=== PATIENT | female | born 1945 | race African-American/Black ===

== ENCOUNTER 2023-03-12 05:55 | Inpatient (IN) | payer MEDICARE, SELFPAY ==
[2023-03-12] VITALS (10 sets, daily range): BP systolic 146–177; BP diastolic 60–72; PULSE 99–105; RESP 16–28; TEMP 36.7–37.3; O2SAT 94–99; BMI 26.4
--- NOTE | ~2023-03-12 | XR_ITS ---
EXAMINATION: XR chest 2V DATE: 03/14/2023 09:27 INDICATION: Leukocytosis TECHNIQUE: AP and lateral views of the chest are obtained. COMPARISON: None available FINDINGS: Cardiomegaly is noted. There are patchy bilateral opacities of the lungs. Small pleural eff usions are present. There is no pneumothorax. There is moderate thoracic spondylosis. Surgical clips are noted in the left axilla. IMPRESSION: 1. Cardiomegaly. 2. Patchy bilateral opacities, consistent with pneumonia and/or pulmonary edema. Reviewed, dictated and finalized at location [] IMPRESSION: 1. Cardiomegaly. 2. Patchy bilateral opacities, consistent with pneumonia and/or pulmonary edema .
--- NOTE | ~2023-03-12 | CT_ITS ---
Non-contrast CT scan of the Abdomen and Pelvis Clinical indication: Nausea and vomiting Technique: 2.5 mm axial scans were obtained through the abdomen and pelvis without intravenous or or al contrast. Dose reduction technique was used on this scan by utilizing automated exposure control a nd iterative reconstruction technique. The dose-length product (DLP) was 729.74 mGy-cm. Findings: Images through the lung bases reveal small bilateral pleural effusions, right greater than left, with extensive groundglass opacity in the visualized right lung base. Probable 4 mm stone at the left renal pelvis/right proximal left ureter. No left hydronephrosis. 6.1 cm right renal cyst is present. There is a right lower pole 1.3 cm probable hyperdense cyst. There ar e multiple stones at the distal right ureter, largest measuring 3 mm, with mild right hydronephrosis present. The liver, spleen, pancreas, and adrenals appear normal. Multiple small layering gallstones are prese nt. There are atherosclerotic calcifications of the aorta. There is no evidence of bowel obstruction. Images through the pelvis were performed. Small amount of abdominopelvic ascites noted. Urinary bladd er unremarkable. Patient is post hysterectomy. Impression: Multiple small distal right ureteral stones, largest measuring 3 mm, with mild right hydronephrosis. Probable 4 mm at the left renal pelvis/proximal left ureter. No left hydronephrosis. Small amount of abdominopelvic ascites. Cholelithiasis. Small bilateral pleural effusions, right greater than left, with right basilar pulmonary edema. Reviewed, dictated and finalized at [facility]. Impression: Multiple small distal right ureteral stones, largest measuring 3 mm, with mild right hydronephrosis. Probable 4 mm at the left renal pelvis/proximal left ureter. No left hydronephr osis. Small amount of abdominopelvic ascites. Cholelithiasis. Small bilateral pleural effusions, right greater than left, with right basilar pulmonary edema.
--- NOTE | ~2023-03-12 | US_ITS ---
EXAMINATION: US renal BI DATE: 03/14/2023 08:58 INDICATION: Acute renal insufficiency TECHNIQUE: Multiple ultrasound grayscale images of the kidneys were obtained. COMPARISON: None. FINDINGS: The right kidney measures 12.3 x 6.3 x 5.7 cm. The left kidney measures 10.4 x 5.0 x 5.9 cm. The kidn eys demonstrate normal echogenicity. There is a 6.5 cm Bosniak 3 complex cystic lesion at the upper p ole of the right kidney which demonstrates new approximately 1.7 x 1.9 cm echogenic region along one side of an otherwise thin internal septation. There is a second smaller 1.1 cm cyst at the mid right kidney. There are a few shadowing stones at both the left and right kidneys. There is no hydronephros is in either kidney. The bladder is decompressed around a Laureano catheter which limits evaluation. IMPRESSION: 1. 4.5 cm Bosniak 3 cystic right renal lesion which appears underestimated 50% possibility of renal cell carcinoma. Would recommend further evaluation with pre and postcontrast MRI or CT. 2. Bilateral nephrolithiasis without hydronephrosis. Reviewed, dictated and finalized at location A. IMPRESSION: 1. 4.5 cm Bosniak 3 cystic right renal lesion which appears underestimated 50% possibility of renal cell carcinoma. Would recommend further evaluation with p re and postcontrast MRI or CT. 2. Bilateral nephrolithiasis without hydronephrosis.
--- NOTE | ~2023-03-12 | XR_ITS ---
EXAMINATION: XR retrograde pyelo w/stent BI DATE: 03/13/2023 17:30 CDT INDICATION: B/L RETRO PYELO W/STENTS . TECHNIQUE: 6 fluoroscopic images of the abdomen and pelvis were obtained during bilateral retrograde pyelography with stent placement performed by the surgeon. I was not present in the operating room. F luoroscopy exposure time was 22 seconds. DAP [id number] mGym2. COMPARISON: CT abdomen and pelvis 03/12/2023 FINDINGS: Cannulation and contrast injection into the right collecting system revealing mild ureterectasis and calyceal clubbing. Right ureteral stent placed in good position. Wire access and contrast injection i nto the left collecting system. Left ureteral stent deployment, inferior coil in good position, proxi mal coil not imaged. IMPRESSION: Fluoroscopic documentation of bilateral retrograde pyelography with stent placement. Please refer to the operative note for complete procedural details . Reviewed, dictated and finalized at location K. IMPRESSION: Fluoroscopic documentation of bilateral retrograde pyelography with stent place ment. Please refer to the operative note for complete procedural details .
--- NOTE | ~2023-03-12 | XR_ITS ---
EXAM: XR abdomen/kub 1V DATE: 03/15/2023 13:36 HISTORY: surgical planning . COMPARISON: CT abdomen pelvis 03/12/2023. FINDINGS: An electronic device projects over the right upper quadrant. Bilateral ureteral stents. Le ft costophrenic angle blunting. Normal bowel gas pattern. No organomegaly. Calcifications project ove r the left renal pelvis and right pelvis, may correspond to the ureteral stones detected in the prior CT. Multilevel lumbar degenerative disc disease. Bilateral SI joint and hip osteoarthritis. IMPRESSION: Bilateral ureteral stents. Left renal pelvis and distal right ureteral stones appear to r emain in stable position. Reviewed, dictated and finalized at location K. IMPRESSION: Bilateral ureteral stents. Left renal pelvis and distal right urete ral stones appear to remain in stable position.
--- NOTE | 2023-03-12 06:40 | PC.NURSE ---
Patient gagging and dry heaving in room. This nurse informed ISHA SCHAFER to give 4MG Zofran IVP.
[2023-03-12 06:43] LABS: Basophils Percent Auto 0.3 % (0.2-1.2); Hematocrit 33.7 % (37.0-47.0); Hemoglobin 11.3 g/dL (12.0-15.0); Immature Granulocyte Percent A 0.6 % (0-0.5); Lymphocytes Percent Auto 3.9 % (18.3-44.2); Mean Corpuscular HGB Conc 33.5 g/dl (32-36); Mean Corpuscular Hemoglobin 31.7 pg (26-34); Mean Corpuscular Volume 94.4 fl (80-100); Mean Platelet Volume 9.6 fl (7.4-10.4); Monocytes Percent Auto 4.2 % (2.6-8.5); Platelet Count Result 248 k/mm3 (150-375); Red Blood Count 3.57 M/mm3 (4.2-5.4); Red Cell Distribution Width 15.6 % (11.5-14.5); White Blood Count 17.4 K/mm3 (4.5-10.0)
[2023-03-12 06:44] LABS: Basophils Absolute Auto 0.1 K/mm3 (0.0-0.1); Immature Granulocyte Absolute 0.11 K/mm3 (0.00-0.031); Lymphocytes Absolute Auto 0.68 K/mm3 (0.9-3.2); Monocytes Absolute Auto 0.7 K/mm3 (0.1-0.6); Neutrophils Absolute Auto 15.9 K/mm3 (1.3-6.7)
[2023-03-12] MEDS: ONDANSETRON INJ 4 MG/2 ML VIAL IV PUSH ×2 (06:44→07:23)
[2023-03-12 06:53] LABS: Alanine Aminotransferase 24 U/L (6-35); Albumin Level 4.7 g/dL (3.5-5.1); Alkaline Phosphatase 75 U/L (38-126); Anion Gap 15 mmol/L (8-16); Aspartate Amino Transferase 36 U/L (14-36); Bilirubin,Total 0.7 mg/dL (0.2-1.3); Blood Urea Nitrogen 55 mg/dL (7-17); Calcium 11.6 mg/dL (8.4-10.2); Carbon Dioxide 23 mmol/L (22-30); Chloride 105 mmol/L (98-107); Estimated CRCL calculation 10 ml/min; Estimated Glomerular Filt Rate 14; Glucose 174 mg/dL (65-110); Lipase 148 U/L (23-300); Potassium 4.2 mmol/L (3.4-5.0); Sodium 143 mmol/L (137-145)
[2023-03-12] MEDS: SODIUM CHLORIDE 0.9% IV 1,000 ML 999 ML IV CONT (07:23)
--- NOTE | 2023-03-12 07:27 | PC.NURSE ---
Assumed care of pt from Cat. Pt unable to urinate at this time. Fluids started
--- NOTE | 2023-03-12 08:02 | ED.GENADULT ---
HPI - General Adult General Chief complaint: Nausea/Vomiting/Diarrhea Stated complaint: N/V Time Seen by Provider: 03/12/23 06:59 History of Present Illness HPI narrative: Patient is a 78-year-old female who presents ER with nausea and vomiting and diarrhea. Began last night. Vomiting has slowed down. Patient reports multiple episodes of loose stools. No blood in stool or emesis. Denies any sick contacts. No fevers or chills or sweats. No loss of consciousness. Has found no aggravating or alleviating factors. No abdominal pain just cramping before she has diarrhea. Related Data Home Medications Medication Instructions Recorded Confirmed allopurinol 100 mg tablet 100 mg PO DAILY 09/12/21 03/12/23 amlodipine 10 mg tablet 10 mg PO DAILY 09/12/21 03/12/23 calcitriol 0.25 mcg capsule 0.25 mcg PO DAILY 09/12/21 03/12/23 carvedilol 25 mg tablet 25 mg PO Q12H 09/12/21 03/12/23 furosemide 40 mg tablet 40 mg PO QAM 09/12/21 03/12/23 losartan 100 mg tablet 100 mg PO DAILY 09/12/21 03/12/23 rosuvastatin 40 mg tablet 40 mg PO DAILY 09/12/21 03/12/23 Accu-Chek Mariza Plus test strp 03/12/23 03/12/23 apixaban 2.5 mg tablet (Eliquis) 2.5 mg PO BID 03/12/23 03/12/23 clobetasol 0.05 % scalp solution 0.5 applic topical DAILY 03/12/23 03/12/23 empagliflozin 25 mg tablet 25 mg PO DAILY 03/12/23 03/12/23 (Jardiance) fluocinolone acetonide oil 0.01 % topical HS skin irritation 03/12/23 03/12/23 hydrocortisone 2.5 % topical cream 2.5 applic topical BID 03/12/23 03/12/23 hydroxyzine HCl 25 mg PO HS 03/12/23 03/12/23 insulin lispro 100 unit/mL 200 unit continuous subcutaneous 03/12/23 03/12/23 subcutaneous solution (Humalog infusion Q72H U-100 Insulin) loratadine 10 mg PO DAILY PRN allergies 03/12/23 03/12/23 triamcinolone acetonide 0.1 % 0.1 applic topical BID 03/12/23 03/12/23 topical ointment Allergies Allergy/AdvReac Type Severity Reaction Status Date / Time No Known Allergies Allergy Verified 03/12/23 06:37 Review of Systems Review of Systems: All systems reviewed & are unremarkable except as noted in HPI and below Constitutional: Constitutional: Denies chills, Denies fatigue and Denies fever(s) ENT: Denies nasal congestion and Denies sore throat Cardiovascular: Cardiovascular: Denies chest pain, Denies rapid heart rate and Denies radiating jaw, neck or arm pain Respiratory: Respiratory: Denies cough and Denies dyspnea Gastrointestinal: Gastrointestinal: Denies abdominal pain, Reports diarrhea, Reports nausea and Reports vomiting Genitourinary: Genitourinary: Denies nocturia and Denies dysuria [facility] Past Medical History Medical History (Updated 03/12/23 @ 19:51 by Boubacar Vega MD) Anemia in chronic kidney disease Atrial fibrillation and flutter Cancer of left breast (2009) Status post partial mastectomy and chemo radiation. 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 Code status: Full code. Smoking status: Never smoker Alcohol intake: never Substance use: never Lack of Transportation: No Lack of Food: Never True Current Housing: I Have Housing Concerned About Future Housing: No Difficulty Paying Gas/Electric Bills: No Difficulty Paying for Meds: No Currently Unemployed: No Education: High School Diploma/GED Difficulty w/ Childcare or Family Care: No Spiritual care concerns: No Exam Narrative: GENERAL: Well-appearing, well-nourished, and in no acute distress. HEAD: Normocephalic, atraumati
[2023-03-12 08:16] LABS: Appearance Urine Cloudy (Clear); Bacteria Urine Rare /hpf; Bilirubin Urine Negative (Negative); Blood Urine 3+ (Negative); Color Urine Yellow (Yellow); Glucose Urine UA 3+ mg/dL (Negative); Ketones Urine 1+ mg/dL (Negative); Leukocyte Esterase Ur Trace LEU/UL (Negative); Nitrate Urine Negative (Negative); Protein Urine 3+ mg/dL (Negative); RBC Urine 21-50 /hpf (0-2); Specific Grav Ur 1.017 (1.001-1.035); Squamous Epithelial Cell Urine Few /hpf (Few); Urobilinogen Urine 0.2 mg/dL (<2.0)
[2023-03-12 08:21] LABS: Add Urine Microscopic? YES
[2023-03-12] MEDS: SODIUM CHLORIDE 0.9% IV 1,000 ML 150 ML IV CONT (11:27)
[2023-03-12] MEDS: PROMETHAZINE HCL 25 MG/ML AMPUL 12.5 MG IV PUSH (11:28)
--- NOTE | 2023-03-12 12:54 | ADMGEN ---
This patient, Tegan Granados, was admitted to [address] [facility] Surg Room 331-02. Patient/family oriented to hospital policies and general routines including ID bracelet, bed and alarms, visiting hours, pain management, procedures, bathroom and other care routines, personal items, smoking policy, room service/diet, and visiting hours. Information on how to activate the Rapid Response Team has been discussed. Patient/Family are encouraged to report perceived risks to care and to ask questions if they do not understand what they are told or what they should do.
--- NOTE | 2023-03-12 13:40 | PM.IMHP ---
H&P: HPI History of Present Illness Date/Time: 03/12/23 13:40 Chief Complaint: Nausea, vomiting, and diarrhea. Narrative: This is a 78-year-old female with chronic kidney disease, paroxysmal atrial fibrillation and flutter, insulin-dependent diabetes, anemia of chronic disease, hypertension, hyperlipidemia, and history of breast cancer who presented to the emergency department via private vehicle from home for evaluation of nausea, vomiting, and diarrhea. The patient provides the following history. Her daughter provides additional information, with the patient's permission. The patient awoke from sleep not feeling well. Her appetite has been poor and she has had pretty continuous nausea with several episodes of emesis (now dry heaves) and loose stools. She denies overt abdominal pain but she does note diffuse abdominal cramping just prior to having diarrhea. In the ED: Vital signs were stable on arrival. Pertinent labs include a WBC count of 17.4, hemoglobin 11.3, normal electrolytes, BUN 55, creatinine 3.50, glucose 174, calcium 11.6, normal LFTs, lipase 148, proBNP 7640. Urine was cloudy with 3+ protein, 3+ glucose, 1+ ketones, 3+ blood, trace leukocyte esterase, 21 to 50 RBC, 6 to 10 WBC, few squamous cells, and rare bacteria. She was given a L of normal saline and promethazine without a whole lot of improvement and she is being admitted in this setting for further treatment. At the time my evaluation she is not feeling much better and has little appetite. She had a couple of bites of her dinner and that is it. She has removed her insulin pump and her glucose has been in the low to mid 100s. She lives at home with her daughter and no one in the household has had similar symptoms. She denies recent travel and antibiotic use. She denies fever, chills, sweats, sinus congestion, sore throat, cough, epigastric pain, bloating, hematemesis, melena, hematochezia, chest pain, shortness a breath, dysuria, and hematuria. Review of Systems Review of Systems: Twelve systems were reviewed and are negative except for as per HPI. [facility] Past Medical History Medical History Anemia in chronic kidney disease Atrial fibrillation and flutter Cancer of left breast (2009) Status post partial mastectomy and chemo radiation. 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 Code status: Full code. Smoking status: Never smoker Alcohol intake: never Substance use: never Lack of Transportation: No Lack of Food: Never True Current Housing: I Have Housing Concerned About Future Housing: No Difficulty Paying Gas/Electric Bills: No Difficulty Paying for Meds: No Currently Unemployed: No Education: High School Diploma/GED Difficulty w/ Childcare or Family Care: No Spiritual care concerns: No Meds Home Medications and Allergies Home Medications Medication Instructions Recorded Confirmed Type allopurinol 100 mg tablet 100 mg PO DAILY 09/12/21 03/12/23 History amlodipine 10 mg tablet 10 mg PO DAILY 09/12/21 03/12/23 History calcitriol 0.25 mcg capsule 0.25 mcg PO DAILY 09/12/21 03/12/23 History carvedilol 25 mg tablet 25 mg PO Q12H 09/12/21 03/12/23 History furosemide 40 mg tablet 40 mg PO QAM 09/12/21 03/12/23 History losartan 100 mg tablet 100 mg PO DAILY 09/12/21 03/12/23
[2023-03-12 17:00] LABS: Glucose Point of Care 126 mg/dl (65-105)
--- NOTE | 2023-03-12 19:26 | PC.NURSE ---
Pt arrived to unit with daughter. Pt able to walk to bed. Pt has not reported any pain. Pt sleeping during most of this shift. Pt monitored for any changes in status. Pt has insulin pump, protocol explained. Provider is not using pump at this time.
[2023-03-12 19:47] LABS: Anion Gap 9 mmol/L (8-16); Blood Urea Nitrogen 60 mg/dL (7-17); Calcium 10.2 mg/dL (8.4-10.2); Carbon Dioxide 21 mmol/L (22-30); Chloride 112 mmol/L (98-107); Estimated CRCL calculation 10 ml/min; Estimated Glomerular Filt Rate 13; Glucose 157 mg/dL (65-110); Potassium 4.3 mmol/L (3.4-5.0); Sodium 142 mmol/L (137-145)
[2023-03-12 19:56] LABS: NT Pro B Type Natriuretic Pept 7640 pg/mL (19.9-100)
[2023-03-12 20:15] LABS: Glucose Point of Care 165 mg/dl (65-105)
[2023-03-12 21:00] LABS: Hemoglobin A1C 5.6 % (<5.7)
[2023-03-12] MEDS: HEPARIN SODIUM 5,000 UNITS/ML VIAL 5000 UNITS SUB-Q (21:10)
[2023-03-12 23:47] LABS: Complement C3 114 mg/dL (88-165)
[2023-03-12 23:49] LABS: CRP 2.6 mg/dL (<1.0)
[2023-03-13] VITALS (25 sets, daily range): BP systolic 129–160; BP diastolic 57–71; PULSE 78–99; RESP 14–30; TEMP 36.1–38.5; O2SAT 85–97
[2023-03-13] MEDS: LACTATED RINGERS 1,000 ML 80 ML IV CONT ×2 (01:02→15:16)
[2023-03-13] MEDS: carvediloL 25 MG TABLET PO ×3 (01:03→20:49)
[2023-03-13 01:12] LABS: Erythrocyte Sedimentation Rate 97 mm/hr (0-20)
[2023-03-13 04:18] LABS: Creatinine Urine 78.5 mg/dL
[2023-03-13 04:23] LABS: Eosinophil Urine None Seen % (None Seen)
[2023-03-13 04:27] LABS: Potassium Urine Random 44.1 meq/L; Sodium Urine Random 31 meq/L
[2023-03-13 04:32] LABS: Urine Eos QC 2nd Tech Confirmed
[2023-03-13 04:59] LABS: Total Protein Urine Random 554 mg/dL; Ur Ttl Prot Creatinine Ratio 7.06 mg/mg (0-0.20)
[2023-03-13 07:24] LABS: Hematocrit 29.6 % (37.0-47.0); Hemoglobin 9.8 g/dL (12.0-15.0); Mean Corpuscular HGB Conc 33.1 g/dl (32-36); Mean Corpuscular Hemoglobin 31.6 pg (26-34); Mean Corpuscular Volume 95.5 fl (80-100); Mean Platelet Volume 9.9 fl (7.4-10.4); Platelet Count Result 205 k/mm3 (150-375); Red Cell Distribution Width 15.8 % (11.5-14.5); White Blood Count 20.7 K/mm3 (4.5-10.0)
[2023-03-13 07:34] LABS: Anion Gap 11 mmol/L (8-16); Blood Urea Nitrogen 67 mg/dL (7-17); Calcium 9.9 mg/dL (8.4-10.2); Carbon Dioxide 24 mmol/L (22-30); Chloride 108 mmol/L (98-107); Estimated CRCL calculation 8 ml/min; Estimated Glomerular Filt Rate 11; Glucose 181 mg/dL (65-110); Magnesium 2.6 mg/dL (1.6-2.3); Potassium 4.3 mmol/L (3.4-5.0); Sodium 143 mmol/L (137-145)
[2023-03-13 08:03] LABS: Glucose Point of Care 190 mg/dl (65-105)
[2023-03-13] MEDS: APIXABAN 2.5 MG TABLET PO (09:10)
[2023-03-13] MEDS: amLODIPine BESYLATE 5 MG TABLET 10 MG PO (09:10)
[2023-03-13] MEDS: ROSUVASTATIN 10 MG TABLET 40 MG PO (09:11)
--- NOTE | 2023-03-13 10:33 | PC.NURSE ---
Daughter, [place], was called and updated on patient.
[2023-03-13 11:55] LABS: Glucose Point of Care 218 mg/dl (65-105)
--- NOTE | 2023-03-13 12:42 | PC.NURSE ---
Called Dr. Anthony to initiate sliding scale orders as patient is tolerating meals and her BG is beginning to rise.
--- NOTE | 2023-03-13 14:55 | PM.IMPN ---
Progress Note: A&P Assessment and Plan (1) Acute on chronic kidney failure: Code(s): N17.9 - Acute kidney failure, unspecified; N18.9 - Chronic kidney disease, unspecified Status: Acute Assessment and Plan: Baseline creatinine this year is 2.3-2.9 range. Creatinine 3.[address] scan does show right obstructing renal stone with hydronephrosis. Renal function worsening. Urine eosinophils are negative. Significant proteinuria noted but could be related to her acute illness. Complimented normal. She is on IV fluids. Laureano catheter secured. potassium is normal. She is not acidotic. Nephrology has been consulted. Continue monitor closely. Check renal ultrasound. (2) Ureteral stone with hydronephrosis: Code(s): N13.2 - Hydronephrosis with renal and ureteral calculous obstruction Status: Acute Assessment and Plan: CT scan showing a 4 mm left renal pelvis/proximal left ureter stone but no hydronephrosis. She also has multiple small distal right ureteral stones measuring up to 3 mm with mild right hydronephrosis. Urology consulted. Continue IV fluids. Strain urine. Add Flomax. Hold Eliquis. (3) Dehydration: Code(s): E86.0 - Dehydration Status: Acute Assessment and Plan: As above. Acute kidney injury could be related to dehydration although suspect ATN as well from obstructing process. As above. (4) Gastroenteritis: Code(s): K52.9 - Noninfective gastroenteritis and colitis, unspecified Status: Acute Assessment and Plan: Patient with gastroenteritis symptoms with nausea, vomiting and diarrhea. Symptoms seem to be resolving. No bowel movements documented. She has been started on diabetic diet. She is tolerating diet well and eating up to 100%. CT scan does not show any bowel obstructive process. Follow (5) Hypertension: Code(s): I10 - Essential (primary) hypertension Status: Acute Assessment and Plan: Patient's blood pressure was reviewed on 03/13 Blood pressure was elevated but better today. Will continue to monitor (6) Anemia in chronic kidney disease: Code(s): N18.9 - Chronic kidney disease, unspecified; D63.1 - Anemia in chronic kidney disease Status: Acute Assessment and Plan: Baseline hemoglobin runs 9-10 range. Hemoglobin was 11.3 on admission but probably hemoconcentrated. With IV fluids, hemoglobin today is 9.8. No evidence of acute blood loss. Will continue to monitor. Presumably anemia is related to CKD but will check iron studies and B12. (7) Insulin dependent diabetes mellitus: Status: Acute Assessment and Plan: A1c 5.6. The patient's blood glucose was reviewed on 03/13 Glucose remains reasonably well controlled. Pump is off. Continue AccuCheks covering with sliding scale. Hypoglycemia protocol available as needed. Continue to monitor. (8) Leukocytosis: Code(s): D72.829 - Elevated white blood cell count, unspecified Status: Acute Assessment and Plan: [place] [address] on admission. White count higher today. No fevers. Not on antibiotics. Will check blood cultures and chest x-ray. C diff seems less likely since the diarrhea has resolved and there is no evidence of colitis on the CT. Hold abx at this time (9) Microscopic hematuria: Code(s): R31.29 - Other microscopic hematuria Status: Acute Assessment and Plan: Related to kidney stones most likely (10) Hypercalcemia: Code(s): E83.52 - Hypercalcemia Status: Acute Assessment and Plan: Mild hypercalcemia noted on admission probably related to dehydration. Calcium level normal now. Would follow. Subjective Date/time seen: 03/13/23 14:55 Interval history: 78yo female with CKD, CHF, HTN, DM and AFib here for nausea, vomiting, and diarrhea. Feels better today. No abd pain. Has 'slight' back pain. No CP or SOB. No dy
[2023-03-13 16:49] LABS: Glucose Point of Care 194 mg/dl (65-105)
--- NOTE | 2023-03-13 16:57 | WPDANESEPP ---
Anes - Eval Pre Procedure Procedure: Operation Date: 03/13/23 17:00 Proposed Procedures p Cystoscopy, Bilateral Retrograde Pyelogram , Bilateral Stent Placement - Terry Lau MD Date/Time: 03/13/23 16:57 Pre Op Diagnosis: Acute on Chronic Kidney Failure/Intractable Vomiti Patient Data Age: 78 Gender: F Height: 1.57 m Weight: 71.7 kg Last Vital Signs Temp 37.6 C 03/13/23 14:00 Pulse 90 03/13/23 16:00 Resp 14 03/13/23 14:00 BP 132/60 03/13/23 14:00 Pulse Ox 90 03/13/23 14:00 O2 Del Method Room Air 03/13/23 09:42 Allergies Allergy/AdvReac Type Severity Reaction Status Date / Time No Known Allergies Allergy Verified 03/12/23 06:37 Home Medications Medication Instructions Recorded Confirmed Type allopurinol 100 mg tablet 100 mg PO DAILY 09/12/21 03/12/23 History amlodipine 10 mg tablet 10 mg PO DAILY 09/12/21 03/12/23 History calcitriol 0.25 mcg capsule 0.25 mcg PO DAILY 09/12/21 03/12/23 History carvedilol 25 mg tablet 25 mg PO Q12H 09/12/21 03/12/23 History furosemide 40 mg tablet 40 mg PO QAM 09/12/21 03/12/23 History losartan 100 mg tablet 100 mg PO DAILY 09/12/21 03/12/23 History rosuvastatin 40 mg tablet 40 mg PO DAILY 09/12/21 03/12/23 History Accu-Chek Mariza Plus test strp 03/12/23 03/12/23 History apixaban 2.5 mg tablet (Eliquis) 2.5 mg PO BID 03/12/23 03/12/23 History clobetasol 0.05 % scalp solution 0.5 applic topical DAILY 03/12/23 03/12/23 History empagliflozin 25 mg tablet 25 mg PO DAILY 03/12/23 03/12/23 History (Jardiance) fluocinolone acetonide oil 0.01 % topical HS skin irritation 03/12/23 03/12/23 History hydrocortisone 2.5 % topical cream 2.5 applic topical BID 03/12/23 03/12/23 History hydroxyzine HCl 25 mg PO HS 03/12/23 03/12/23 History insulin lispro 100 unit/mL 200 unit continuous subcutaneous 03/12/23 03/12/23 History subcutaneous solution (Humalog infusion Q72H U-100 Insulin) loratadine 10 mg PO DAILY PRN allergies 03/12/23 03/12/23 History triamcinolone acetonide 0.1 % 0.1 applic topical BID 03/12/23 03/12/23 History topical ointment Laboratory Tests 03/12/23 03/12/23 03/12/23 06:34 16:52 19:20 WBC RBC Hgb Hct MCV MCH MCHC RDW Plt Count MPV ESR 97 H mm/hr (0-20) Sodium 142 mmol/L (137-145) Potassium 4.3 mmol/L (3.4-5.0) Chloride 112 H mmol/L (98-107) Carbon Dioxide 21 L mmol/L (22-30) Anion Gap 9 mmol/L (8-16) BUN 60 H mg/dL (7-17) Creatinine 4.00 H mg/dL (0.7-1.0) Estim Creat Clear Calc 10 ml/min Estimated GFR 13 L (59 - ) Glucose 157 H mg/dL (65-110) POC Capillary Glucose 126 H mg/dl (65-105) Hemoglobin A1c 5.6 % (<5.7) Calcium 10.2 mg/dL (8.4-10.2) Phosphorus Magnesium C-Reactive Protein 2.6 H mg/dL (<1.0) NT-Pro-B Natriuret Pep 7640 H pg/mL (19.9-100) Urine Eosinophils Ur Random Creatinine U Random Total Protein Ur Random Sodium Ur Random Potassium Ur Random Chloride U Random Chloride/Creat Urine Creatinine Protein/Creat Ratio 2 REJI Screen Anti-DNA Antibody Complement C3 114 mg/dL (88-165) Complement C4 39.5 mg/dL (14.0-44.0) Tot Complement (CH50) 03/12/23 03/13/23 03/13/23 20:02 03:52 07:16 WBC 20.7 H K/mm3 (4.5-10.0) RBC 3.10 L M/mm3 (4.2-5.4) Hgb 9.8 L g/dL (12.0-15.0) Hct 29.6 L % (37.0-47.0) MCV 95.5 fl (80-100) MCH 31.6 pg (26-34) MCHC 33.1 g/dl (32-36) RDW 15.8 H % (11.5-14.5) Plt Count 205 k/mm3 (150
--- NOTE | 2023-03-13 17:03 | WPDURCON ---
Assessment and Plan Assessment and plan (1) Ureteral stone with hydronephrosis: Code(s): N13.2 - Hydronephrosis with renal and ureteral calculous obstruction Status: Acute Assessment and Plan: Plan to go to the OR tonight with Dr. Lau. Obtain Consent: Cystoscopy, bilateral ureteroscopy with stent placement, bilateral retrograde pyelogram. Keep NPO. (2) Microscopic hematuria: Code(s): R31.29 - Other microscopic hematuria Status: Acute Assessment and Plan: Urine culture pending. Start Ceftriaxone tailor to antibiotic sensitivity. (3) Leukocytosis: Code(s): D72.829 - Elevated white blood cell count, unspecified Status: Acute (4) Hematuria: Code(s): R31.9 - Hematuria, unspecified Status: Acute (5) Acute on chronic kidney failure: Code(s): N17.9 - Acute kidney failure, unspecified; N18.9 - Chronic kidney disease, unspecified Status: Acute Assessment and Plan: Elevated to 4.70 from her baseline of 2.10, I suspect it will improve after stent placement, will continue to monitor. Urology Consult Note HPI Date Seen: 03/13/23 Time Seen: 17:03 Requesting Physician: Emily Samayoa MD Primary Care Provider: Angelica EspinozaMD Consult Narrative Reason for consult: Bilateral Ureteral Stones Narrative: Tegan Granados is a 78 year old female who presented to the ER yesterday with nausea, vomiting, diarrhea and flank pain that was bilateral. She states the symptoms started over the weekend, but worsened yesterday brining her to the ER. She has a low grade fever of 99.6, WBC of 20.7, creatinine of 4.70 which is elevated from her baseline of 2.10. Her pain is not well controlled and she is lethargic as compared to baseline according to her daughter who is at the bedside. UA is suggestive of a UTI and urine culture is pending. CT scan shows multiple small distal right ureteral stones measuring up to 3mm with mild right hydronephrosis and a 4mm left renal pelvic stone in the proximal ureter with out hydronephrosis. Review of Systems Constitutional: Constitutional: Reports lethargy, Reports malaise and Reports weakness Cardiovascular: Cardiovascular: Denies chest pain Respiratory: Respiratory: Reports no additional respiratory complaints Gastrointestinal: Gastrointestinal: Reports abdominal pain, Reports nausea and Reports vomiting Genitourinary: Genitourinary: Denies nocturia, Denies dysuria, Denies pelvic pain, Reports flank pain, Denies urinary incontinence and Denies urinary urgency PMF Past Medical History Medical History Anemia in chronic kidney disease Atrial fibrillation and flutter Cancer of left breast (2009) Status post partial mastectomy and chemo radiation. 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 Code status: Full code. Smoking status: Never smoker Alcohol intake: never Substance use: never Lack of Transportation: No Lack of Food: Never True Current Housing: I Have Housing Concerned About Future Housing: No Difficulty Paying Gas/Electric Bills: No Difficulty Paying for Meds: No Currently Unemployed: No Education: High School Diploma/GED Difficulty w/ Childcare or Family Care: No Spiritual care concerns: No Meds Home Medications and Allergies Home Medications Medication Instructions Recorded Confirmed Type allopurinol 100 mg tablet 100 mg PO FLORESITA
--- NOTE | 2023-03-13 17:28 | WPDHPUPDATE1 ---
History and Physical Update Update Date/Time: 03/13/23 17:28 History and Physical has been reviewed, including an updated exam of the patient. There are NO changes in the patient's condition. Risks, benefits, and alternatives have been discussed and questions answered. Patient agrees to proceed with procedure. Proceed with cysto bilateral retrograde pyelograms, bilateral ureteral stents
--- NOTE | 2023-03-13 17:29 | P.PNAN_ITS ---
Anes - Eval Final PreProcedure Day of Procedure 03/13/23 17:29 Patient weight: overweight Heart: regular rate and rhythm Lungs: clear to auscultation Airway: Mallampati scale class II and class IV Neurological: alert and oriented Last oral intake: >/= 8 hours ASA classification: IV Emergent: no Anesthetic plan: proceed Anesthesia type and monitoring: general ETT and standard monitoring Results Review: All pre-operative results and documents have been reviewed as part of the pre- operative evaluation. Informed Consent: The patient's anesthetic plan and its attendant risks and benefits were disc ussed with the patient/family/POA. Questions were solicited and answers provided to the satisfaction of the patient/family/POA.
[2023-03-13] MEDS: LACTATED RINGERS 1,000 ML 30 ML IV CONT (17:30)
[2023-03-13] MEDS: LIDOCAINE HCL 2% GEL UROJET 10 ML PKG MUCOUS MEM (17:53)
--- NOTE | 2023-03-13 18:00 | P.OP_ITS ---
Procedure Note - Detailed Date of Procedure 03/13/23 Pre-op Diagnosis Acute on Chronic Kidney Failure/bilateral ureterolithiasis with UTI Post-op Diagnosis Same Procedure Performed Cystoscopy, bilateral retrograde pyelograms, bilateral ureteral stent placement 4.8 Portuguese contour, complex Laureano placement Surgeon Terry Lau MD Anesthesia MAC Description of Procedure Patient is taken to the operative suite correctly identified. Once anesthesia was obtained she was placed in dorsal lithotomy position and prepped draped usual sterile fashion. Twenty-two Portuguese scope inserted in the bladder. There were no tumors noted. The right ureteral orifice was cannulated with a [place] and a pyelogram was performed. Contrast made its way up into the kidney. A guidewire was then inserted. 4.8 Portuguese contour stent was then placed with the proximal end coiled in the renal pelvis and distal in the bladder. Was noted that there was some purulence coming from the right UO with placement. A similar procedure was then done on the left side. 4.8 Portuguese contour stent was also placed in the left renal pelvis and the distal end coiling in the bladder. Bladder was drained 2% viscous lidocaine was inserted urethra. Sixteen Portuguese Laureano was placed with 10 cc in the balloon. Patient is taken recovery stable condition. Plan is to get over the acute episodes. She will require a repeat CT scan in a few days. Most likely will need bilateral ureteroscopy to address the stones at a later point time once her infection clears. This completes dictation. Please send a copy this to my office Drains Yes Packing No Pathology None sent Complications No immediate complications Condition Stable Disposition PACU
[2023-03-13] MEDS: hydrOXYzine HCL 25 MG TABLET PO (20:49)
[2023-03-13] MEDS: TAMSULOSIN HCL 0.4 MG CAPSULE PO (20:49)
[2023-03-13 22:19] LABS: Glucose Point of Care 163 mg/dl (65-105)
[2023-03-14] VITALS (11 sets, daily range): BP systolic 122–136; BP diastolic 52–66; PULSE 68–96; RESP 18–24; TEMP 36.8–37.7; O2SAT 91–98
[2023-03-14] MEDS: ACETAMINOPHEN 325 MG TABLET 650 MG PO ×2 (05:16→12:06)
[2023-03-14 06:29] LABS: Basophils Percent Auto 0.2 % (0.2-1.2); Eosinophils Absolute Auto 0.1 K/mm3 (0-0.3); Eosinophils Percent Auto 0.4 % (0-4.4); Hematocrit 27.6 % (37.0-47.0); Hemoglobin 8.8 g/dL (12.0-15.0); Immature Granulocyte Absolute 0.11 K/mm3 (0.00-0.031); Immature Granulocyte Percent A 0.7 % (0-0.5); Lymphocytes Absolute Auto 0.68 K/mm3 (0.9-3.2); Lymphocytes Percent Auto 4.6 % (18.3-44.2); Mean Corpuscular HGB Conc 31.9 g/dl (32-36); Mean Corpuscular Hemoglobin 30.4 pg (26-34); Mean Corpuscular Volume 95.5 fl (80-100); Mean Platelet Volume 10.6 fl (7.4-10.4); Monocytes Absolute Auto 1.4 K/mm3 (0.1-0.6); Monocytes Percent Auto 9.3 % (2.6-8.5); Neutrophils Absolute Auto 12.6 K/mm3 (1.3-6.7); Neutrophils Percent Auto 84.8 % (45.5-73.1); Platelet Count Result 189 k/mm3 (150-375); Red Blood Count 2.89 M/mm3 (4.2-5.4); Red Cell Distribution Width 15.3 % (11.5-14.5); White Blood Count 14.9 K/mm3 (4.5-10.0)
[2023-03-14 06:39] LABS: Alanine Aminotransferase 19 U/L (6-35); Albumin Level 3.2 g/dL (3.5-5.1); Alkaline Phosphatase 50 U/L (38-126); Anion Gap 5 mmol/L (8-16); Aspartate Amino Transferase 30 U/L (14-36); Bilirubin,Total 0.5 mg/dL (0.2-1.3); Blood Urea Nitrogen 68 mg/dL (7-17); Calcium 9.1 mg/dL (8.4-10.2); Carbon Dioxide 26 mmol/L (22-30); Chloride 111 mmol/L (98-107); Creatine Kinase 172 U/L (30-135); Estimated CRCL calculation 8 ml/min; Estimated Glomerular Filt Rate 11; Glucose 139 mg/dL (65-110); Magnesium 2.5 mg/dL (1.6-2.3); Phosphorus 4.1 mg/dL (2.5-4.5); Potassium 3.9 mmol/L (3.4-5.0); Sodium 142 mmol/L (137-145)
[2023-03-14 06:49] LABS: Iron 30 ug/dL (37-170)
[2023-03-14 06:55] LABS: Platelet Estimate Adequate (Adequate)
[2023-03-14 06:56] LABS: Burr Cells 1+ (NORMAL); Helmet Cells 1+ (NORMAL); Schistocytes 1+ (NORMAL)
[2023-03-14 06:58] LABS: Percent Iron Saturation 14 % (20-50)
[2023-03-14 07:43] LABS: Folic Acid 18.2 ng/mL (2.76->20)
[2023-03-14 07:49] LABS: Glucose Point of Care 122 mg/dl (65-105)
[2023-03-14] MEDS: carvediloL 25 MG TABLET PO ×2 (08:08→22:10)
[2023-03-14] MEDS: ROSUVASTATIN 10 MG TABLET 40 MG PO (08:08)
[2023-03-14] MEDS: TAMSULOSIN HCL 0.4 MG CAPSULE PO (08:08)
[2023-03-14] MEDS: amLODIPine BESYLATE 5 MG TABLET 10 MG PO (08:08)
[2023-03-14] MEDS: LACTATED RINGERS 1,000 ML 80 ML IV CONT ×2 (08:09→22:13)
--- NOTE | 2023-03-14 09:59 | WPDANESPN ---
Anes - Prog Note Post-Op Date/Time: 03/14/23 09:59 Cardiovascular status: normal Respiratory status: normal Airway patency: baseline Mental status: baseline Post-Op hydration status: normal Vital Signs: Last Vital Signs Temp 98.9 F 03/14/23 08:00 Pulse 89 03/14/23 08:08 Resp 20 03/14/23 08:00 BP 131/57 L 03/14/23 08:00 Pulse Ox 95 03/14/23 08:00 O2 Del Method Nasal Cannula 03/13/23 20:14 O2 Flow Rate 3 03/13/23 20:14 Pain Score (VAS): 0/10 I/O: Intake & Output 03/13/23 03/14/23 03/14/23 23:59 07:59 15:59 Intake Total 1200 640 Output Total 140 750 Balance 1060 -750 640 Laboratory Tests 03/14/23 05:50 03/14/23 05:50 03/13/23 03/13/23 03/13/23 11:33 16:30 20:58 WBC RBC Hgb Hct MCV MCH MCHC RDW Plt Count MPV Immature Gran % (Auto) Neut % (Auto) Lymph % (Auto) Leake % (Auto) Eos % (Auto) Baso % (Auto) Lymph # (Auto) Leake # (Auto) Eos # (Auto) Baso # (Auto) Abs Immat Gran (auto) Absolute Neuts (auto) Absolute Nucleated RBC Nucleated RBC % Platelet Estimate Helmet Cells Julieth Cells Schistocytes Sodium Potassium Chloride Carbon Dioxide Anion Gap BUN Creatinine Estim Creat Clear Calc Estimated GFR Glucose POC Capillary Glucose 218 H 194 H 163 H Calcium Phosphorus Magnesium Iron TIBC % Saturation Ferritin Total Bilirubin AST ALT Alkaline Phosphatase Total Creatine Kinase Total Protein Albumin Vitamin B12 Folate TSH (Reflex) 03/14/23 03/14/23 05:50 07:46 WBC 14.9 H RBC 2.89 L Hgb 8.8 L Hct 27.6 L MCV 95.5 MCH 30.4 MCHC 31.9 L RDW 15.3 H Plt Count 189 MPV 10.6 H Immature Gran % (Auto) 0.7 H Neut % (Auto) 84.8 H Lymph % (Auto) 4.6 L Leake % (Auto) 9.3 H Eos % (Auto) 0.4 Baso % (Auto) 0.2 Lymph # (Auto) 0.68 L Leake # (Auto) 1.4 H Eos # (Auto) 0.1 Baso # (Auto) 0.0 Abs Immat Gran (auto) 0.11 H Absolute Neuts (auto) 12.6 H Absolute Nucleated RBC 0.0 Nucleated RBC % 0.0 Platelet Estimate Adequate Helmet Cells 1+ Licking Cells 1+ Schistocytes 1+ Sodium 142 Potassium 3.9 Chloride 111 H Carbon Dioxide 26 Anion Gap 5 L BUN 68 H Creatinine 4.70 H Estim Creat Clear Calc 8 Estimated GFR 11 L Glucose 139 H POC Capillary Glucose 122 H Calcium 9.1 Phosphorus 4.1 Magnesium 2.5 H Iron 30 L TIBC 219 L % Saturation 14 L Ferritin 90.70 Total Bilirubin 0.5 AST 30 ALT 19 Alkaline Phosphatase 50 Total Creatine Kinase 172 H Total Protein 6.0 L Albumin 3.2 L Vitamin B12 774.0 Folate 18.2 TSH (Reflex) 1.540 Microbiology 03/12/23 08:06 Urine Clean Catch Urine Culture - Final Post-procedural complaints: none Patient Feedback: Patient satisfied with anesthetic care.
[2023-03-14 11:37] LABS: Glucose Point of Care 153 mg/dl (65-105)
--- NOTE | 2023-03-14 12:45 | PM.IMPN ---
Progress Note: A&P Assessment and Plan (1) Acute on chronic kidney failure: Code(s): N17.9 - Acute kidney failure, unspecified; N18.9 - Chronic kidney disease, unspecified Status: Acute Assessment and Plan: complicated by bilateral renal stone w hydro sp bilateral renal stent place monitor kidney function abx (2) Dehydration: Code(s): E86.0 - Dehydration Status: Acute Assessment and Plan: brent po (3) Gastroenteritis: Code(s): K52.9 - Noninfective gastroenteritis and colitis, unspecified Status: Acute Assessment and Plan: monitor (4) Hypercalcemia: Code(s): E83.52 - Hypercalcemia Status: Acute (5) Chronic kidney disease, stage 4 (severe): Code(s): N18.4 - Chronic kidney disease, stage 4 (severe) Status: Acute (6) Hypertension: Code(s): I10 - Essential (primary) hypertension Status: Acute (7) Anemia in chronic kidney disease: Code(s): N18.9 - Chronic kidney disease, unspecified; D63.1 - Anemia in chronic kidney disease Status: Acute Assessment and Plan: monitor (8) Insulin dependent diabetes mellitus: Status: Acute (9) Leukocytosis: Code(s): D72.829 - Elevated white blood cell count, unspecified Status: Acute (10) Microscopic hematuria: Code(s): R31.29 - Other microscopic hematuria Status: Acute Plan The patient presented to the emergency department for evaluation of nausea, vomiting, and diarrhea since last evening as per HPI. Labs, imaging, EKG, and all reports were personally reviewed. She has been afebrile since arrival with stable vital signs. BUN and creatinine are elevated from baseline, likely due to dehydration from volume loss due to vomiting and diarrhea. She may very well have a viral gastroenteritis but given her elevated white blood cell count. CT of the abdomen pelvis has been ordered for further evaluation, given the microscopic hematuria. Continue judicious rehydration with close monitoring of volume status and renal function. Her calcium is or is a bit high but is 11.6 today. I suspect this is due to dehydration and should improve with IV fluids. Renal ultrasound ordered to evaluate. If no improvement with supportive care, a Nephrology consult would be prudent. Hold calcitriol for now. Blood pressures were reviewed and they are stable. Continue antihypertensives and monitor daily. Patient has removed her insulin pump. She receives 21.55 units of basal insulin a day. As she is not eating in her glucose has been running just over 100, we will hold insulin for now. Her diabetes is tightly controlled and her hemoglobin A1c today is 5.6%. Initiate sliding scale insulin, Accu-Cheks, and hypoglycemic protocol. Hemoglobin and hematocrit are stable on review of previous labs. Home medications will be reviewed and resumed as appropriate. Findings and treatment plan were discussed with the patient. Questions were solicited and answered to satisfaction. Subjective Date/time seen: 03/14/23 12:45 Interval history: sleeping currently daughter present no acute events overnight Exam Narrative: AF 99.6 132/60 87 14 90% ra Gen - NARD lying almost flat in bed Chest - CTA bilaterally, nml RR CV - RRR S1/S2; Tele showing 6beat run of possible SVT. Abd - Soft, NT/ND, Positive BS - Laureano secured with clear yellow urine Ext - No pedal edema Psych - Nml mood and affect Skin - Warm and dry Objective Data Vital Signs Vital Signs: Vital Signs - 24 hr 03/13/23 14:00 03/13/23 16:00 03/13/23 17:05 Temperature 99.6 F 101.3 F H Pulse Rate 87 90 91 Respiratory Rate 14 18 Blood Pressure 132/60 141/57 H Pulse Oximetry 90 85 L Oxygen Delivery Room Air Oxygen Flow Rate 03/13/23 17:10 03/13/23 18:08 03/13/23 18:20 Temperature 98.2 F Pulse Rate 86 88 Respiratory Rate 21 H 30 H Blood Pressure 129/64 139/68 Pulse Oximetry 91 87 L 93 Oxygen Delivery Nasal
--- NOTE | 2023-03-14 14:56 | PCCCNOTE ---
On 03/14/23, the student, [Simran Dale], provided care and completed [facility] documentation on this patient. I have reviewed the student's documentation and agree with the findings.
--- NOTE | 2023-03-14 15:15 | PM.CNNEP ---
Assessment and Plan Assessment and plan (1) GARRISON (acute kidney injury): Code(s): N17.9 - Acute kidney failure, unspecified Status: Acute Assessment and Plan: multifactorial etiology: obstruction/hydronephrosis prerenal factors (nausea + vomiting + diarrhea) use of diuretics + ARB prior to admission infection (UA suggestive; operative note reviewed) evaluation to date: CT of abdomen on admission with multiple small distal right ureteral stones, largest measuring 3 mm, with mild right hydronephrosis renal ultrasound today without hydronephrosis urine electrolytes prerenal significant proteinuria urine eosinophils negative CPK mildly elevated but not enough to affect kidney function s/p Urological intervention (see #3) no significant change in renal function follow trend of repeat labs and UOP (2) Chronic kidney disease, stage 4 (severe): Code(s): N18.4 - Chronic kidney disease, stage 4 (severe) Status: Chronic Assessment and Plan: preasent at least as far back as 2021 baseline creatinine seems to run around 1.9 - 2.5mg/dl (although has been as high as 2.9mg/dl) presumably secondary to hypertension, diabetes, vascular disease and age-related change follows with Dr. Misha Wiseman for CKD management (3) Ureteral stone with hydronephrosis: Code(s): N13.2 - Hydronephrosis with renal and ureteral calculous obstruction Status: Acute Assessment and Plan: s/p cystoscopy, bilateral retrograde pyelograms, bilateral ureteral stent placement operative note reviewed -- noted that there was some purulence coming from the right UO with placement of stent Urology following further intervention with regard to stones at a later date once more stable ?? (4) Hypertension: Code(s): I10 - Essential (primary) hypertension Status: Chronic Assessment and Plan: reasonable control at this time follow trend of hemodynamics (5) Anemia: Code(s): D64.9 - Anemia, unspecified Status: Chronic Assessment and Plan: related to known CKD follows with Dr. Casillas for Aranesp injections follow trend of H/H (6) Insulin dependent diabetes mellitus: Status: Chronic Assessment and Plan: follow accuchecks glycemic control per hospitalists I will continue follow the patient with you while she remains hospitalized and make further recommendations during her hospital course. Thank you for allowing me to participate in care this patient. History of Present Illness Reason for Consult Consult date: 03/14/23 Reason for consult: acute renal failure (on chronic kidney disease) Chief Complaint Chief complaint: Acute on Chronic Kidney Failure/Intractable Vomiti History of Present Illness Narrative: The patient is a 78-year-old female with a past medical history as outlined below who presented to [facility] Emergency room for further evaluation of nausea, vomiting, and diarrhea (I was unable see the patient yesterday as she was in the OR at the time of my visit). The patient reports that she has had a poor appetite due to the for mention nausea, vomiting in association with dry heaves and loose bowel movements. It is difficult for the patient to assess how long the symptoms have been going on but they seems to have progressively worsened in general. She also associates some diffuse abdominal cramping around the time that she has episodes of diarrhea. As the symptoms seem to be progressively getting worse, she presented to the ER for further assessment. Workup and evaluation in the emergency room demonstrated the patient to be hemodynamically stable. Routine blood test were significant for elevated white blood cell count of 17.4 stable hemoglobin hematocrit consistent with a known history of anemia, normal electrolytes, but elevated BUN and creatinine above her baseline of 55 and 3.5, respectively. H
--- NOTE | 2023-03-14 15:15 | P.CONNP_ITS ---
Assessment and Plan Assessment and plan (1) GARRISON (acute kidney injury): Code(s): N17.9 - Acute kidney failure, unspecified Status: Acute Assessment and Plan: * multifactorial etiology: * obstruction/hydronephrosis * prerenal factors (nausea + vomiting + diarrhea) * use of diuretics + ARB prior to admission * infection (UA suggestive; operative note reviewed) * evaluation to date: * CT of abdomen on admission with multiple small distal right ureteral stones, largest measuring 3 mm, with mild right hydronephrosis * renal ultrasound today without hydronephrosis * urine electrolytes prerenal * significant proteinuria * urine eosinophils negative * CPK mildly elevated but not enough to affect kidney function * s/p Urological intervention (see #3) * no significant change in renal function * follow trend of repeat labs and UOP (2) Chronic kidney disease, stage 4 (severe): Code(s): N18.4 - Chronic kidney disease, stage 4 (severe) Status: Chronic Assessment and Plan: * preasent at least as far back as 2021 * baseline creatinine seems to run around 1.9 - 2.5mg/dl (although has been as high as 2.9mg/dl) * presumably secondary to hypertension, diabetes, vascular disease and age- related change * follows with Dr. Misha Wiseman for CKD management (3) Ureteral stone with hydronephrosis: Code(s): N13.2 - Hydronephrosis with renal and ureteral calculous obstruction Status: Acute Assessment and Plan: * s/p cystoscopy, bilateral retrograde pyelograms, bilateral ureteral stent placement * operative note reviewed -- noted that there was some purulence coming from the right UO with placement of stent * Urology following * further intervention with regard to stones at a later date once more stable ?? (4) Hypertension: Code(s): I10 - Essential (primary) hypertension Status: Chronic Assessment and Plan: * reasonable control at this time * follow trend of hemodynamics (5) Anemia: Code(s): D64.9 - Anemia, unspecified Status: Chronic Assessment and Plan: * related to known CKD * follows with Dr. Casillas for Aranesp injections * follow trend of H/H (6) Insulin dependent diabetes mellitus: Status: Chronic Assessment and Plan: * follow accuchecks * glycemic control per hospitalists I will continue follow the patient with you while she remains hospitalized and make further recommendations during her hospital course. Thank you for allowing me to participate in care this patient. History of Present Illness Reason for Consult Consult date: 03/14/23 Reason for consult: acute renal failure (on chronic kidney disease) Chief Complaint Chief complaint: Acute on Chronic Kidney Failure/Intractable Vomiti History of Present Illness Narrative: The patient is a 78-year-old female with a past medical history as outlined below who presented to [facility] Emergency room for further evaluation of nausea, vomiting, and diarrhea (I was unable see the patient yesterday as she was in the OR at the time of my visit). The patient reports that she has had a poor appetite due to the for mention nausea, vomiting in association with dry heaves and loose bowel movements. It is difficult for the patient to assess how long the symptoms have been going on but they seems to have progressively worsened in general. She also associates some diffuse abdominal cramping around the time that she has episodes of diarrhea. As the symptoms seem to be p
[2023-03-14 16:39] LABS: Glucose Point of Care 116 mg/dl (65-105)
[2023-03-14 20:59] LABS: Glucose Point of Care 152 mg/dl (65-105)
[2023-03-14] MEDS: hydrOXYzine HCL 25 MG TABLET PO (22:10)
[2023-03-15] VITALS (11 sets, daily range): BP systolic 126–141; BP diastolic 51–56; PULSE 77–91; RESP 14–16; TEMP 36.9–37.2; O2SAT 91–97
[2023-03-15 07:21] LABS: Basophils Percent Auto 0.3 % (0.2-1.2); Eosinophils Absolute Auto 0.4 K/mm3 (0-0.3); Eosinophils Percent Auto 2.9 % (0-4.4); Hematocrit 25.7 % (37.0-47.0); Hemoglobin 8.4 g/dL (12.0-15.0); Immature Granulocyte Percent A 0.8 % (0-0.5); Lymphocytes Absolute Auto 0.85 K/mm3 (0.9-3.2); Mean Corpuscular HGB Conc 32.7 g/dl (32-36); Mean Corpuscular Hemoglobin 31.5 pg (26-34); Mean Corpuscular Volume 96.3 fl (80-100); Mean Platelet Volume 10.2 fl (7.4-10.4); Monocytes Absolute Auto 1.1 K/mm3 (0.1-0.6); Monocytes Percent Auto 8.6 % (2.6-8.5); Neutrophils Absolute Auto 9.8 K/mm3 (1.3-6.7); Neutrophils Percent Auto 80.4 % (45.5-73.1); Platelet Count Result 182 k/mm3 (150-375); Red Blood Count 2.67 M/mm3 (4.2-5.4); Red Cell Distribution Width 15.2 % (11.5-14.5); White Blood Count 12.2 K/mm3 (4.5-10.0)
[2023-03-15 07:30] LABS: Alanine Aminotransferase 19 U/L (6-35); Albumin Level 3.1 g/dL (3.5-5.1); Alkaline Phosphatase 52 U/L (38-126); Anion Gap 5 mmol/L (8-16); Aspartate Amino Transferase 26 U/L (14-36); Bilirubin,Total 0.4 mg/dL (0.2-1.3); Blood Urea Nitrogen 67 mg/dL (7-17); Calcium 8.7 mg/dL (8.4-10.2); Carbon Dioxide 25 mmol/L (22-30); Chloride 111 mmol/L (98-107); Estimated CRCL calculation 9 ml/min; Estimated Glomerular Filt Rate 12; Glucose 109 mg/dL (65-110); Potassium 3.9 mmol/L (3.4-5.0); Sodium 141 mmol/L (137-145)
[2023-03-15 08:18] LABS: Glucose Point of Care 117 mg/dl (65-105)
[2023-03-15] MEDS: amLODIPine BESYLATE 5 MG TABLET 10 MG PO (08:41)
[2023-03-15] MEDS: carvediloL 25 MG TABLET PO ×2 (08:41→20:43)
[2023-03-15] MEDS: ROSUVASTATIN 10 MG TABLET 40 MG PO (08:41)
[2023-03-15] MEDS: TAMSULOSIN HCL 0.4 MG CAPSULE PO (08:41)
[2023-03-15] MEDS: ONDANSETRON INJ 4 MG/2 ML VIAL IV PUSH (10:13)
[2023-03-15 11:56] LABS: Glucose Point of Care 128 mg/dl (65-105)
--- NOTE | 2023-03-15 13:39 | P.PNNP_ITS ---
Progress Note: A&P Assessment and Plan (1) GARRISON (acute kidney injury): Code(s): N17.9 - Acute kidney failure, unspecified Status: Acute Assessment and Plan: * no improvement noted * multifactorial etiology: * obstruction/hydronephrosis * prerenal factors (nausea + vomiting + diarrhea) * use of diuretics + ARB prior to admission * infection (UA suggestive; operative note reviewed) * evaluation to date: * CT of abdomen on admission with multiple small distal right ureteral stones, largest measuring 3 mm, with mild right hydronephrosis * renal ultrasound today without hydronephrosis * urine electrolytes prerenal * significant proteinuria * urine eosinophils negative * CPK mildly elevated but not enough to affect kidney function * s/p Urological intervention (see #3) * no significant change in renal function * follow trend of repeat labs and UOP (2) Chronic kidney disease, stage 4 (severe): Code(s): N18.4 - Chronic kidney disease, stage 4 (severe) Status: Chronic Assessment and Plan: * preasent at least as far back as 2021 * baseline creatinine seems to run around 1.9 - 2.5mg/dl (although has been as high as 2.9mg/dl) * presumably secondary to hypertension, diabetes, vascular disease and age- related change * follows with Dr. Misha Wiseman for CKD management (3) Ureteral stone with hydronephrosis: Code(s): N13.2 - Hydronephrosis with renal and ureteral calculous obstruction Status: Acute Assessment and Plan: * s/p cystoscopy, bilateral retrograde pyelograms, and bilateral ureteral stent placement * operative note reviewed -- noted that there was some purulence coming from the right UO with placement of stent * on antibiotics * culture (blood and urine) negative to date * Urology following * further intervention with regard to stones at a later date once more stable ?? (4) Hypertension: Code(s): I10 - Essential (primary) hypertension Status: Chronic Assessment and Plan: * reasonable control at this time * follow trend of hemodynamics (5) Anemia: Code(s): D64.9 - Anemia, unspecified Status: Chronic Assessment and Plan: * related to known CKD * follows with Dr. Casillas for Aranesp injections * follow trend of H/H (6) Insulin dependent diabetes mellitus: Status: Chronic Assessment and Plan: * follow accuchecks * glycemic control per hospitalists Will continue to follow. Subjective Date/time seen: 03/15/23 13:39 Interval history: Follow-up for acute kidney injury/acute renal failure on chronic kidney disease. She appears to being relatively well at the time of my visit; no apparent distress noted; no significant improvement in renal function as of yet; still making urine; no other issues/events overnight or earlier this AM. Exam Narrative: General: elderly but WD/WN AA female in NAD Heart: normal S1 and S2; no rub Lungs: clear to auscultation Abdomen: soft, nontender, nondistended, positive bowel sounds Extremities: no cyanosis or clubbing; no edema Skin: warm and dry Objective Data Vital Signs Vital Signs: Vital Signs Temp Pulse Resp BP Pulse Ox O2 Del Method O2 Flow Rate 03/15/23 12:00 85 03/15/23 08:00 91 03/15/23 12:55 98.5 F 77 16 126/51 L 94 03/15/23 08:27
--- NOTE | 2023-03-15 13:39 | PM.PNNEP ---
Progress Note: A&P Assessment and Plan (1) GARRISON (acute kidney injury): Code(s): N17.9 - Acute kidney failure, unspecified Status: Acute Assessment and Plan: no improvement noted multifactorial etiology: obstruction/hydronephrosis prerenal factors (nausea + vomiting + diarrhea) use of diuretics + ARB prior to admission infection (UA suggestive; operative note reviewed) evaluation to date: CT of abdomen on admission with multiple small distal right ureteral stones, largest measuring 3 mm, with mild right hydronephrosis renal ultrasound today without hydronephrosis urine electrolytes prerenal significant proteinuria urine eosinophils negative CPK mildly elevated but not enough to affect kidney function s/p Urological intervention (see #3) no significant change in renal function follow trend of repeat labs and UOP (2) Chronic kidney disease, stage 4 (severe): Code(s): N18.4 - Chronic kidney disease, stage 4 (severe) Status: Chronic Assessment and Plan: preasent at least as far back as 2021 baseline creatinine seems to run around 1.9 - 2.5mg/dl (although has been as high as 2.9mg/dl) presumably secondary to hypertension, diabetes, vascular disease and age-related change follows with Dr. Misha Wiseman for CKD management (3) Ureteral stone with hydronephrosis: Code(s): N13.2 - Hydronephrosis with renal and ureteral calculous obstruction Status: Acute Assessment and Plan: s/p cystoscopy, bilateral retrograde pyelograms, and bilateral ureteral stent placement operative note reviewed -- noted that there was some purulence coming from the right UO with placement of stent on antibiotics culture (blood and urine) negative to date Urology following further intervention with regard to stones at a later date once more stable ?? (4) Hypertension: Code(s): I10 - Essential (primary) hypertension Status: Chronic Assessment and Plan: reasonable control at this time follow trend of hemodynamics (5) Anemia: Code(s): D64.9 - Anemia, unspecified Status: Chronic Assessment and Plan: related to known CKD follows with Dr. Casillas for Aranesp injections follow trend of H/H (6) Insulin dependent diabetes mellitus: Status: Chronic Assessment and Plan: follow accuchecks glycemic control per hospitalists Will continue to follow. Subjective Date/time seen: 03/15/23 13:39 Interval history: Follow-up for acute kidney injury/acute renal failure on chronic kidney disease. She appears to being relatively well at the time of my visit; no apparent distress noted; no significant improvement in renal function as of yet; still making urine; no other issues/events overnight or earlier this AM. Exam Narrative: General: elderly but WD/WN AA female in NAD Heart: normal S1 and S2; no rub Lungs: clear to auscultation Abdomen: soft, nontender, nondistended, positive bowel sounds Extremities: no cyanosis or clubbing; no edema Skin: warm and dry Objective Data Vital Signs Vital Signs: Vital Signs Temp Pulse Resp BP Pulse Ox O2 Del Method O2 Flow Rate 03/15/23 12:00 85 03/15/23 08:00 91 03/15/23 12:55 98.5 F 77 16 126/51 L 94 03/15/23 08:27 96 Nasal Cannula 1 03/15/23 05:00 98.8 F 85 14 138/54 L 91 03/15/23 04:00 85 03/15/23 04:32 85 16 97 Nasal Cannula 1 03/15/23 00:00 82 03/14/23 20:00 78 03/14/23 20:00 91 Nasal Cannula 2 03/14/23 22:10 68 03/14/23 21:16 99.8 F H 80 18 130/66 91 03/14/23 16:00 75 Intake/Output Intake/Output: Intake & Output 03/12/23 03/13/23 03/14/23 03/15/23 23:59 23:59 23:59 23:59 Intake Total 1200 2790 2170 480 Output Total 340 1200 700 Balance 1200 2450 970 -220 Meds/Results Medications: Active Medications Generic Name Dose Route Sta
--- NOTE | 2023-03-15 14:21 | WPDUROPN2 ---
Progress Note: A&P Assessment and Plan (1) Ureteral stone with hydronephrosis: Code(s): N13.2 - Hydronephrosis with renal and ureteral calculous obstruction Status: Acute Assessment and Plan: Stents in place, no improvement in creatinine. likely CKD versus GARRISON No obstruction noted on KUB today. (2) Acute on chronic kidney failure: Code(s): N17.9 - Acute kidney failure, unspecified; N18.9 - Chronic kidney disease, unspecified Status: Acute Assessment and Plan: Nephrology following. Urine culture negative, blood cultures pending but preliminary reading is negative, if final blood cultures are negative, I plan to stop Ceftriaxone. Afebrile. Will plan to schedule patient for outpatient treatment of stones. No further surgical plans needed. Remove dahl for voiding trial today. (3) GARRISON (acute kidney injury): Code(s): N17.9 - Acute kidney failure, unspecified Status: Acute Subjective Subjective Date/Time Seen: 03/15/23 14:21 Post Op day: 2 Interval history: POD #2 Cystoscopy, bilateral stent placement, bilateral retrograde pyelogram, dahl placement. Patient is doing well, tolerating stents, urine is clear in catheter. WBC is 12.2, creatinine not improved and is still 4.40, nephrology has been seeing patient. KUB is ordered to see if stones are visible. She continues Ceftriaxone, urine culture is negative, preliminary blood cultures are also negative. She is now afebrile. Review of Systems Cardiovascular: Cardiovascular: Denies chest pain Respiratory: Respiratory: Reports no additional respiratory complaints Gastrointestinal: Gastrointestinal: Denies abdominal pain, Denies nausea and Denies vomiting Genitourinary: Genitourinary: Reports hematuria and Denies flank pain Exam Const: General: cooperative, comfortable and lethargic Resp: Effort & Inspection: normal respiratory effort Cardio: Rate: regular rate GI: GI Palp: Yes Soft to palpation and No Tenderness to palpation present (GI) : General: Yes no CVA tenderness Urinary Catheter: Urinary Catheter: patent and draining and urine clear Extrem: Right lower extremity: no edema Left lower extremity: no edema Objective Data Vital Signs Vital Signs: Vital Signs - 24 hr 03/14/23 16:00 03/14/23 21:16 03/14/23 22:10 Temperature 99.8 F H Pulse Rate 75 80 68 Respiratory Rate 18 Blood Pressure 130/66 Pulse Oximetry 91 Oxygen Delivery Oxygen Flow Rate Fraction of Inspired Oxygen 03/14/23 20:00 03/14/23 20:00 03/15/23 00:00 Temperature Pulse Rate 78 82 Respiratory Rate Blood Pressure Pulse Oximetry 91 Oxygen Delivery Nasal Cannula Oxygen Flow Rate 2 Fraction of Inspired Oxygen 03/15/23 04:32 03/15/23 04:00 03/15/23 05:00 Temperature 98.8 F Pulse Rate 85 85 85 Respiratory Rate 16 14 Blood Pressure 138/54 L Pulse Oximetry 97 91 Oxygen Delivery Nasal Cannula Oxygen Flow Rate 1 Fraction of Inspired Oxygen 24 03/15/23 08:27 03/15/23 13:55 03/15/23 08:00 Temperature 98.5 F Pulse Rate 77 91 Respiratory Rate 16 Blood Pressure 126/51 L Pulse Oximetry 96 94 Oxygen Delivery Nasal Cannula Oxygen Flow Rate 1 Fraction of Inspired Oxygen 03/15/23 12:00 Temperature Pulse Rate 85 Respiratory Rate Blood Pressure Pulse Oximetry Oxygen Delivery Oxygen Flow Rate Fraction of Inspired Oxygen Intake/Output Intake/Output: Intake & Output 03/12/23 03/13/23 03/14/23 03/15/23 23:59 23:59 23:59 23:59 Intake Total 1200 2790 2170 480 Output Total 340 1200 700 Balance 1200 2450 970 -220 Meds/Results Medications: Active Medications Generic Name Dose Route Start Last Admin Trade Name Freq PRN Reason Stop Dose Admin Acetaminophen 650 mg 03/12/23 11:15 03/14/23 12:06 Acetaminophen 325 Mg Tablet PO 650 mg Q4H PRN Administration Mild Pain (1-3) or Fever Amlodipine Besylate 10 mg 03/13/23 09
--- NOTE | 2023-03-15 15:14 | PM.IMPN ---
Progress Note: A&P Assessment and Plan (1) Acute on chronic kidney failure: Code(s): N17.9 - Acute kidney failure, unspecified; N18.9 - Chronic kidney disease, unspecified Status: Acute Assessment and Plan: complicated by bilateral renal stone w hydro sp bilateral renal stent place monitor kidney function abx (2) Dehydration: Code(s): E86.0 - Dehydration Status: Acute Assessment and Plan: brent po (3) Gastroenteritis: Code(s): K52.9 - Noninfective gastroenteritis and colitis, unspecified Status: Acute Assessment and Plan: monitor (4) Hypercalcemia: Code(s): E83.52 - Hypercalcemia Status: Acute (5) Chronic kidney disease, stage 4 (severe): Code(s): N18.4 - Chronic kidney disease, stage 4 (severe) Status: Acute (6) Hypertension: Code(s): I10 - Essential (primary) hypertension Status: Acute (7) Anemia in chronic kidney disease: Code(s): N18.9 - Chronic kidney disease, unspecified; D63.1 - Anemia in chronic kidney disease Status: Acute Assessment and Plan: monitor (8) Insulin dependent diabetes mellitus: Status: Acute (9) Leukocytosis: Code(s): D72.829 - Elevated white blood cell count, unspecified Status: Acute (10) Microscopic hematuria: Code(s): R31.29 - Other microscopic hematuria Status: Acute Plan The patient presented to the emergency department for evaluation of nausea, vomiting, and diarrhea since last evening as per HPI. Labs, imaging, EKG, and all reports were personally reviewed. She has been afebrile since arrival with stable vital signs. BUN and creatinine are elevated from baseline, likely due to dehydration from volume loss due to vomiting and diarrhea. She may very well have a viral gastroenteritis but given her elevated white blood cell count. CT of the abdomen pelvis has been ordered for further evaluation, given the microscopic hematuria. Continue judicious rehydration with close monitoring of volume status and renal function. Her calcium is or is a bit high but is 11.6 today. I suspect this is due to dehydration and should improve with IV fluids. Renal ultrasound ordered to evaluate. If no improvement with supportive care, a Nephrology consult would be prudent. Hold calcitriol for now. Blood pressures were reviewed and they are stable. Continue antihypertensives and monitor daily. Patient has removed her insulin pump. She receives 21.55 units of basal insulin a day. As she is not eating in her glucose has been running just over 100, we will hold insulin for now. Her diabetes is tightly controlled and her hemoglobin A1c today is 5.6%. Initiate sliding scale insulin, Accu-Cheks, and hypoglycemic protocol. Hemoglobin and hematocrit are stable on review of previous labs. Home medications will be reviewed and resumed as appropriate. Findings and treatment plan were discussed with the patient. Questions were solicited and answered to satisfaction. Subjective Date/time seen: 03/15/23 15:14 Interval history: No complaints Exam Narrative: AF 99.6 132/60 87 14 90% ra Gen - NARD lying almost flat in bed Chest - CTA bilaterally, nml RR CV - RRR S1/S2; Tele showing 6beat run of possible SVT. Abd - Soft, NT/ND, Positive BS - Laureano secured with clear yellow urine Ext - No pedal edema Psych - Nml mood and affect Skin - Warm and dry Objective Data Vital Signs Vital Signs: Vital Signs - 24 hr 03/14/23 16:00 03/14/23 21:16 03/14/23 22:10 Temperature 99.8 F H Pulse Rate 75 80 68 Respiratory Rate 18 Blood Pressure 130/66 Pulse Oximetry 91 Oxygen Delivery Oxygen Flow Rate Fraction of Inspired Oxygen 03/14/23 20:00 03/14/23 20:00 03/15/23 00:00 Temperature Pulse Rate 78 82 Respiratory Rate Blood Pressure Pulse Oximetry 91 Oxygen Delivery Nasal Cannula Oxygen Flow Rate 2 Fraction of Inspired Oxygen 03/15/23
[2023-03-15 16:49] LABS: Glucose Point of Care 159 mg/dl (65-105)
[2023-03-15] MEDS: LACTATED RINGERS 1,000 ML 80 ML IV CONT (18:29)
[2023-03-15 19:06] LABS: Complement Total CH50 >60 U/mL (31-60)
[2023-03-15 20:33] LABS: Glucose Point of Care 192 mg/dl (65-105)
[2023-03-15] MEDS: hydrOXYzine HCL 25 MG TABLET PO (20:43)
[2023-03-15] MEDS: ACETAMINOPHEN 325 MG TABLET 650 MG PO (20:45)
[2023-03-16] VITALS (11 sets, daily range): BP systolic 133–141; BP diastolic 45–60; PULSE 74–88; RESP 16–20; TEMP 36.6–37.3; O2SAT 92–95
[2023-03-16 06:05] LABS: Basophils Percent Auto 0.3 % (0.2-1.2); Eosinophils Absolute Auto 0.4 K/mm3 (0-0.3); Eosinophils Percent Auto 3.8 % (0-4.4); Hematocrit 26.1 % (37.0-47.0); Hemoglobin 8.3 g/dL (12.0-15.0); Immature Granulocyte Absolute 0.08 K/mm3 (0.00-0.031); Immature Granulocyte Percent A 0.8 % (0-0.5); Lymphocytes Absolute Auto 0.84 K/mm3 (0.9-3.2); Lymphocytes Percent Auto 8.3 % (18.3-44.2); Mean Corpuscular HGB Conc 31.8 g/dl (32-36); Mean Corpuscular Hemoglobin 30.4 pg (26-34); Mean Corpuscular Volume 95.6 fl (80-100); Mean Platelet Volume 10.6 fl (7.4-10.4); Monocytes Absolute Auto 1.1 K/mm3 (0.1-0.6); Monocytes Percent Auto 11.1 % (2.6-8.5); Neutrophils Absolute Auto 7.7 K/mm3 (1.3-6.7); Neutrophils Percent Auto 75.7 % (45.5-73.1); Platelet Count Result 199 k/mm3 (150-375); Red Blood Count 2.73 M/mm3 (4.2-5.4); Red Cell Distribution Width 14.7 % (11.5-14.5); White Blood Count 10.1 K/mm3 (4.5-10.0)
[2023-03-16 06:20] LABS: Anion Gap 6 mmol/L (8-16); Blood Urea Nitrogen 61 mg/dL (7-17); Calcium 8.6 mg/dL (8.4-10.2); Carbon Dioxide 25 mmol/L (22-30); Chloride 111 mmol/L (98-107); Estimated CRCL calculation 11 ml/min; Estimated Glomerular Filt Rate 14; Glucose 133 mg/dL (65-110); Potassium 3.4 mmol/L (3.4-5.0); Sodium 142 mmol/L (137-145)
[2023-03-16 07:44] LABS: Glucose Point of Care 128 mg/dl (65-105)
[2023-03-16] MEDS: LACTATED RINGERS 1,000 ML 80 ML IV CONT ×2 (08:15→21:01)
[2023-03-16] MEDS: TAMSULOSIN HCL 0.4 MG CAPSULE PO (08:16)
[2023-03-16] MEDS: carvediloL 25 MG TABLET PO ×2 (08:16→21:01)
[2023-03-16] MEDS: amLODIPine BESYLATE 5 MG TABLET 10 MG PO (08:16)
[2023-03-16] MEDS: ROSUVASTATIN 10 MG TABLET 40 MG PO (08:16)
[2023-03-16 11:33] LABS: Glucose Point of Care 159 mg/dl (65-105)
--- NOTE | 2023-03-16 11:38 | PM.IMPN ---
Progress Note: A&P Assessment and Plan (1) Acute on chronic kidney failure: Code(s): N17.9 - Acute kidney failure, unspecified; N18.9 - Chronic kidney disease, unspecified Status: Acute Assessment and Plan: complicated by bilateral renal stone w hydro sp bilateral renal stent place monitor kidney function abx (2) Dehydration: Code(s): E86.0 - Dehydration Status: Acute Assessment and Plan: brent po (3) Gastroenteritis: Code(s): K52.9 - Noninfective gastroenteritis and colitis, unspecified Status: Acute Assessment and Plan: monitor (4) Hypercalcemia: Code(s): E83.52 - Hypercalcemia Status: Acute (5) Chronic kidney disease, stage 4 (severe): Code(s): N18.4 - Chronic kidney disease, stage 4 (severe) Status: Acute (6) Hypertension: Code(s): I10 - Essential (primary) hypertension Status: Acute (7) Anemia in chronic kidney disease: Code(s): N18.9 - Chronic kidney disease, unspecified; D63.1 - Anemia in chronic kidney disease Status: Acute Assessment and Plan: monitor (8) Insulin dependent diabetes mellitus: Status: Acute (9) Leukocytosis: Code(s): D72.829 - Elevated white blood cell count, unspecified Status: Acute (10) Microscopic hematuria: Code(s): R31.29 - Other microscopic hematuria Status: Acute Plan The patient presented to the emergency department for evaluation of nausea, vomiting, and diarrhea since last evening as per HPI. Labs, imaging, EKG, and all reports were personally reviewed. She has been afebrile since arrival with stable vital signs. BUN and creatinine are elevated from baseline, likely due to dehydration from volume loss due to vomiting and diarrhea. She may very well have a viral gastroenteritis but given her elevated white blood cell count. CT of the abdomen pelvis has been ordered for further evaluation, given the microscopic hematuria. Continue judicious rehydration with close monitoring of volume status and renal function. Her calcium is or is a bit high but is 11.6 today. I suspect this is due to dehydration and should improve with IV fluids. Renal ultrasound ordered to evaluate. If no improvement with supportive care, a Nephrology consult would be prudent. Hold calcitriol for now. Blood pressures were reviewed and they are stable. Continue antihypertensives and monitor daily. Patient has removed her insulin pump. She receives 21.55 units of basal insulin a day. As she is not eating in her glucose has been running just over 100, we will hold insulin for now. Her diabetes is tightly controlled and her hemoglobin A1c today is 5.6%. Initiate sliding scale insulin, Accu-Cheks, and hypoglycemic protocol. Hemoglobin and hematocrit are stable on review of previous labs. Home medications will be reviewed and resumed as appropriate. Findings and treatment plan were discussed with the patient. Questions were solicited and answered to satisfaction. Subjective Date/time seen: 03/16/23 11:38 Interval history: No complaints Exam Narrative: AF 99.6 132/60 87 14 90% ra Gen - NARD lying almost flat in bed Chest - CTA bilaterally, nml RR CV - RRR S1/S2; Tele showing 6beat run of possible SVT. Abd - Soft, NT/ND, Positive BS - Laureano secured with clear yellow urine Ext - No pedal edema Psych - Nml mood and affect Skin - Warm and dry Objective Data Vital Signs Vital Signs: Vital Signs - 24 hr 03/15/23 13:55 03/15/23 12:00 03/15/23 16:00 Temperature 98.5 F Pulse Rate 77 85 88 Respiratory Rate 16 Blood Pressure 126/51 L Pulse Oximetry 94 Oxygen Delivery Oxygen Flow Rate Fraction of Inspired Oxygen 03/15/23 21:00 03/15/23 20:00 03/15/23 20:00 Temperature 98.9 F Pulse Rate 81 79 Respiratory Rate 16 Blood Pressure 141/56 H Pulse Oximetry 93 93 Oxygen Delivery Nasal Cannula Oxygen Flow Rate 1 Fraction of Inspired Oxygen
--- NOTE | 2023-03-16 12:39 | P.PNNP_ITS ---
Progress Note: A&P Assessment and Plan (1) GARRISON (acute kidney injury): Code(s): N17.9 - Acute kidney failure, unspecified Status: Acute Assessment and Plan: * slow improvement * multifactorial etiology: * obstruction/hydronephrosis * prerenal factors (nausea + vomiting + diarrhea) * use of diuretics + ARB prior to admission * infection (UA suggestive; operative note reviewed) * evaluation to date: * CT of abdomen on admission with multiple small distal right ureteral stones, largest measuring 3 mm, with mild right hydronephrosis * renal ultrasound today without hydronephrosis * urine electrolytes prerenal * significant proteinuria * urine eosinophils negative * CPK mildly elevated but not enough to affect kidney function * s/p Urological intervention (see #3) * no significant change in renal function * follow trend of repeat labs and UOP (2) Chronic kidney disease, stage 4 (severe): Code(s): N18.4 - Chronic kidney disease, stage 4 (severe) Status: Chronic Assessment and Plan: * preasent at least as far back as 2021 * baseline creatinine seems to run around 1.9 - 2.5mg/dl (although has been as high as 2.9mg/dl) * presumably secondary to hypertension, diabetes, vascular disease and age- related change * follows with Dr. Misha Wiseman for CKD management (3) Ureteral stone with hydronephrosis: Code(s): N13.2 - Hydronephrosis with renal and ureteral calculous obstruction Status: Acute Assessment and Plan: * s/p cystoscopy, bilateral retrograde pyelograms, and bilateral ureteral stent placement * operative note reviewed -- noted that there was some purulence coming from the right UO with placement of stent * on antibiotics * culture (blood and urine) negative to date * Urology following * further intervention with regard to stones at a later date once more stable ?? (4) Hypertension: Code(s): I10 - Essential (primary) hypertension Status: Chronic Assessment and Plan: * reasonable control at this time * follow trend of hemodynamics (5) Anemia: Code(s): D64.9 - Anemia, unspecified Status: Chronic Assessment and Plan: * related to known CKD * follows with Dr. Casillas for Aranesp injections * follow trend of H/H (6) Insulin dependent diabetes mellitus: Status: Chronic Assessment and Plan: * follow accuchecks * glycemic control per hospitalists Will continue to follow. Subjective Date/time seen: 03/16/23 12:39 Interval history: Follow-up for acute kidney injury/acute renal failure on chronic kidney disease. Sitting up eating lunch at the time of my visit; seems to be making slow and steady improvement; renal function improving with adequate urine output; no other issues/events overnight or earlier this morning. Exam Narrative: General: elderly but WD/WN AA female in NAD Heart: normal S1 and S2; no rub Lungs: clear to auscultation Abdomen: soft, nontender, nondistended, positive bowel sounds Extremities: no cyanosis or clubbing; no edema Skin: warm and intact Objective Data Vital Signs Vital Signs: Vital Signs Temp Pulse Resp BP Pulse Ox O2 Del Method O2 Flow Rate 03/16/23 12:00 99.1 F 80 16 141/45 H 95 03/16/23 08:15 93 Nasal Cannula 1 03/16/23 08:15 88 03/16/23 0
--- NOTE | 2023-03-16 12:39 | PM.PNNEP ---
Progress Note: A&P Assessment and Plan (1) GARRISON (acute kidney injury): Code(s): N17.9 - Acute kidney failure, unspecified Status: Acute Assessment and Plan: slow improvement multifactorial etiology: obstruction/hydronephrosis prerenal factors (nausea + vomiting + diarrhea) use of diuretics + ARB prior to admission infection (UA suggestive; operative note reviewed) evaluation to date: CT of abdomen on admission with multiple small distal right ureteral stones, largest measuring 3 mm, with mild right hydronephrosis renal ultrasound today without hydronephrosis urine electrolytes prerenal significant proteinuria urine eosinophils negative CPK mildly elevated but not enough to affect kidney function s/p Urological intervention (see #3) no significant change in renal function follow trend of repeat labs and UOP (2) Chronic kidney disease, stage 4 (severe): Code(s): N18.4 - Chronic kidney disease, stage 4 (severe) Status: Chronic Assessment and Plan: preasent at least as far back as 2021 baseline creatinine seems to run around 1.9 - 2.5mg/dl (although has been as high as 2.9mg/dl) presumably secondary to hypertension, diabetes, vascular disease and age-related change follows with Dr. Misha Wiseman for CKD management (3) Ureteral stone with hydronephrosis: Code(s): N13.2 - Hydronephrosis with renal and ureteral calculous obstruction Status: Acute Assessment and Plan: s/p cystoscopy, bilateral retrograde pyelograms, and bilateral ureteral stent placement operative note reviewed -- noted that there was some purulence coming from the right UO with placement of stent on antibiotics culture (blood and urine) negative to date Urology following further intervention with regard to stones at a later date once more stable ?? (4) Hypertension: Code(s): I10 - Essential (primary) hypertension Status: Chronic Assessment and Plan: reasonable control at this time follow trend of hemodynamics (5) Anemia: Code(s): D64.9 - Anemia, unspecified Status: Chronic Assessment and Plan: related to known CKD follows with Dr. Casillas for Aranesp injections follow trend of H/H (6) Insulin dependent diabetes mellitus: Status: Chronic Assessment and Plan: follow accuchecks glycemic control per hospitalists Will continue to follow. Subjective Date/time seen: 03/16/23 12:39 Interval history: Follow-up for acute kidney injury/acute renal failure on chronic kidney disease. Sitting up eating lunch at the time of my visit; seems to be making slow and steady improvement; renal function improving with adequate urine output; no other issues/events overnight or earlier this morning. Exam Narrative: General: elderly but WD/WN AA female in NAD Heart: normal S1 and S2; no rub Lungs: clear to auscultation Abdomen: soft, nontender, nondistended, positive bowel sounds Extremities: no cyanosis or clubbing; no edema Skin: warm and intact Objective Data Vital Signs Vital Signs: Vital Signs Temp Pulse Resp BP Pulse Ox O2 Del Method O2 Flow Rate 03/16/23 12:00 99.1 F 80 16 141/45 H 95 03/16/23 08:15 93 Nasal Cannula 1 03/16/23 08:15 88 03/16/23 09:18 92 Nasal Cannula 1 03/16/23 08:16 88 03/16/23 05:00 97.9 F 76 18 135/48 L 93 03/16/23 04:00 74 03/16/23 00:00 75 03/15/23 20:00 79 03/15/23 20:00 93 Nasal Cannula 1 03/15/23 21:00 98.9 F 81 16 141/56 H 93 03/15/23 16:00 88 03/15/23 13:55 98.5 F 77 16 126/51 L 94 Intake/Output Intake/Output: Intake & Output 03/13/23 03/14/23 03/15/23 03/16/23 23:59 23:59 23:59 23:59 Intake Total 2790 2170 2070 1480 Output Total 340 1200 1300 300 Balance 2450 364 473 9001 Meds/Results Medications: Active Medications Generic Name Dose R
--- NOTE | 2023-03-16 12:56 | WPDUROPN2 ---
Progress Note: A&P Assessment and Plan (1) Ureteral stone with hydronephrosis: Code(s): N13.2 - Hydronephrosis with renal and ureteral calculous obstruction Status: Acute Assessment and Plan: Patient will need to have a Cysto bilateral special in a couple of weeks. Patient ok to be discharged home per urology at anytime. (2) Microscopic hematuria: Code(s): R31.29 - Other microscopic hematuria Status: Acute (3) Hematuria: Code(s): R31.9 - Hematuria, unspecified Status: Acute (4) Acute on chronic kidney failure: Code(s): N17.9 - Acute kidney failure, unspecified; N18.9 - Chronic kidney disease, unspecified Status: Acute Assessment and Plan: Nephrology Following (5) GARRISON (acute kidney injury): Code(s): N17.9 - Acute kidney failure, unspecified Status: Acute Assessment and Plan: Passed voiding trial. Subjective Subjective Date/Time Seen: 03/16/23 12:56 Post Op day: 3 Interval history: POD #3 Cystoscopy, bilateral stent placement, bilateral retrograde pyelogram, dahl placement. Patient is doing well, tolerating stents. KUB is ordered to see if stones are visible. She continues Ceftriaxone, urine culture is negative, preliminary blood cultures are also negative. She is afebrile. Catheter was removed, the patient is urinating well but struggling with some incontinence. PVR is 40cc today. KUB shows bilateral stones and stents in place. Review of Systems Cardiovascular: Cardiovascular: Denies chest pain Respiratory: Respiratory: Reports no additional respiratory complaints Gastrointestinal: Gastrointestinal: Denies abdominal pain, Denies nausea and Denies vomiting Genitourinary: Genitourinary: Denies hematuria, Reports nocturia, Denies dysuria, Denies pelvic pain, Reports flank pain, Reports urinary incontinence, Reports urinary hesitancy and Denies urinary urgency Exam Const: General: cooperative and comfortable Resp: Effort & Inspection: normal respiratory effort Cardio: Rate: regular rate GI: GI Palp: Yes Soft to palpation and No Tenderness to palpation present (GI) : General: Yes no CVA tenderness Extrem: Right lower extremity: no edema Left lower extremity: no edema Objective Data Vital Signs Vital Signs: Vital Signs - 24 hr 03/15/23 13:55 03/15/23 16:00 03/15/23 21:00 Temperature 98.5 F 98.9 F Pulse Rate 77 88 81 Respiratory Rate 16 16 Blood Pressure 126/51 L 141/56 H Pulse Oximetry 94 93 Oxygen Delivery Oxygen Flow Rate Fraction of Inspired Oxygen 03/15/23 20:00 03/15/23 20:00 03/16/23 00:00 Temperature Pulse Rate 79 75 Respiratory Rate Blood Pressure Pulse Oximetry 93 Oxygen Delivery Nasal Cannula Oxygen Flow Rate 1 Fraction of Inspired Oxygen 03/16/23 04:00 03/16/23 05:00 03/16/23 08:16 Temperature 97.9 F Pulse Rate 74 76 88 Respiratory Rate 18 Blood Pressure 135/48 L Pulse Oximetry 93 Oxygen Delivery Oxygen Flow Rate Fraction of Inspired Oxygen 03/16/23 09:18 03/16/23 08:15 03/16/23 08:15 Temperature Pulse Rate 88 Respiratory Rate Blood Pressure Pulse Oximetry 92 93 Oxygen Delivery Nasal Cannula Nasal Cannula Oxygen Flow Rate 1 1 Fraction of Inspired Oxygen 24 Intake/Output Intake/Output: Intake & Output 03/13/23 03/14/23 03/15/23 03/16/23 23:59 23:59 23:59 23:59 Intake Total 2790 2170 2070 1480 Output Total 340 1200 1300 300 Balance 2450 340 736 5091 Meds/Results Medications: Active Medications Generic Name Dose Route Start Last Admin Trade Name Freq PRN Reason Stop Dose Admin Acetaminophen 650 mg 03/12/23 11:15 03/15/23 20:45 Acetaminophen 325 Mg Tablet PO 650 mg Q4H PRN Administration Mild Pain (1-3) or Fever Amlodipine Besylate 10 mg 03/13/23 09:00 03/16/23 08:16 Amlodipine Besylate 5 Mg Tablet PO 10 mg DAILY JAYCOB Administration Apixaban 2.5 mg
[2023-03-16 16:43] LABS: Glucose Point of Care 173 mg/dl (65-105)
[2023-03-16] MEDS: CEFDINIR 300 MG CAPSULE PO (17:44)
[2023-03-16] MEDS: hydrOXYzine HCL 25 MG TABLET PO (21:01)
[2023-03-16 22:17] LABS: Glucose Point of Care 150 mg/dl (65-105)
[2023-03-17] VITALS: PULSE 73
[2023-03-17 04:00] VITALS: PULSE 78
[2023-03-17] MEDS: ONDANSETRON INJ 4 MG/2 ML VIAL IV PUSH (05:07)
[2023-03-17 06:00] VITALS: BP 138/63; PULSE 72; RESP 20; TEMP 36.6; O2SAT 96
[2023-03-17 06:14] LABS: Anion Gap 8 mmol/L (8-16); Blood Urea Nitrogen 57 mg/dL (7-17); Calcium 8.6 mg/dL (8.4-10.2); Carbon Dioxide 24 mmol/L (22-30); Chloride 109 mmol/L (98-107); Estimated CRCL calculation 11 ml/min; Estimated Glomerular Filt Rate 15; Glucose 137 mg/dL (65-110); Potassium 3.5 mmol/L (3.4-5.0); Sodium 141 mmol/L (137-145)
[2023-03-17 08:00] VITALS: PULSE 81
[2023-03-17 08:09] LABS: Glucose Point of Care 131 mg/dl (65-105)
[2023-03-17] MEDS: TAMSULOSIN HCL 0.4 MG CAPSULE PO (08:24)
[2023-03-17] MEDS: carvediloL 25 MG TABLET PO (08:24)
[2023-03-17] MEDS: amLODIPine BESYLATE 5 MG TABLET 10 MG PO (08:24)
[2023-03-17] MEDS: ROSUVASTATIN 10 MG TABLET 40 MG PO (08:24)
--- NOTE | 2023-03-17 10:10 | PM.DS ---
DS: Admitting Diagnosis Discharge Date March 17, 2023 Admitting Diagnosis Kidney injury DS: Discharge Diagnosis Discharge Diagnosis (1) Acute on chronic kidney failure: Code(s): N17.9 - Acute kidney failure, unspecified; N18.9 - Chronic kidney disease, unspecified Status: Acute Assessment and Plan: complicated by bilateral renal stone w hydro sp bilateral renal stent place monitor kidney function abx (2) Dehydration: Code(s): E86.0 - Dehydration Status: Acute Assessment and Plan: brent po (3) Gastroenteritis: Code(s): K52.9 - Noninfective gastroenteritis and colitis, unspecified Status: Acute Assessment and Plan: monitor (4) Hypercalcemia: Code(s): E83.52 - Hypercalcemia Status: Acute (5) Chronic kidney disease, stage 4 (severe): Code(s): N18.4 - Chronic kidney disease, stage 4 (severe) Status: Chronic (6) Hypertension: Code(s): I10 - Essential (primary) hypertension Status: Chronic (7) Anemia in chronic kidney disease: Code(s): N18.9 - Chronic kidney disease, unspecified; D63.1 - Anemia in chronic kidney disease Status: Chronic Assessment and Plan: monitor (8) Insulin dependent diabetes mellitus: Status: Chronic (9) Leukocytosis: Code(s): D72.829 - Elevated white blood cell count, unspecified Status: Acute (10) Microscopic hematuria: Code(s): R31.29 - Other microscopic hematuria Status: Acute Plan The patient presented to the emergency department for evaluation of nausea, vomiting, and diarrhea since last evening as per HPI. Labs, imaging, EKG, and all reports were personally reviewed. She has been afebrile since arrival with stable vital signs. BUN and creatinine are elevated from baseline, likely due to dehydration from volume loss due to vomiting and diarrhea. She may very well have a viral gastroenteritis but given her elevated white blood cell count. CT of the abdomen pelvis has been ordered for further evaluation, given the microscopic hematuria. Continue judicious rehydration with close monitoring of volume status and renal function. Her calcium is or is a bit high but is 11.6 today. I suspect this is due to dehydration and should improve with IV fluids. Renal ultrasound ordered to evaluate. If no improvement with supportive care, a Nephrology consult would be prudent. Hold calcitriol for now. Blood pressures were reviewed and they are stable. Continue antihypertensives and monitor daily. Patient has removed her insulin pump. She receives 21.55 units of basal insulin a day. As she is not eating in her glucose has been running just over 100, we will hold insulin for now. Her diabetes is tightly controlled and her hemoglobin A1c today is 5.6%. Initiate sliding scale insulin, Accu-Cheks, and hypoglycemic protocol. Hemoglobin and hematocrit are stable on review of previous labs. Home medications will be reviewed and resumed as appropriate. Findings and treatment plan were discussed with the patient. Questions were solicited and answered to satisfaction. DS: Summary Hospital Course Hospital Course: Patient is a 78-year-old female came in with acute kidney injury. Imaging study showed bilateral hydronephrosis. Urology was consulted and 2 stents were placed. Kidney function slowly improved. Patient does have chronic kidney disease of questionable baseline. She will need follow-up with Urology and also Nephrology on discharge. Also to note on imaging showing possible pneumonia was noted patient was started on Rocephin prior to me seeing her and she did well from respiratory standpoint. Patient is ambulating getting around room and hallway she just fine. She can be discharged to finish her course of Omnicef. Time Spent with Patient Time attestation: Total time spent providing and/or coordinating discharge services: Exam Narrative: AF 99.6 132/60 87 14 90% ra Gen - NARD lying
[2023-03-17 11:39] LABS: Glucose Point of Care 141 mg/dl (65-105)
[2023-03-19 16:28] LABS: Chloride Rand Ur 28 mmol/L (32-290); Chloride/Creatinine Rand Ur 37 (38-318); Creatinine Random Urine 75 mg/dL (20-275)
== END 2023-03-17 12:40 | disposition home or self-care (01) | DRG 660 ==
LOC: ANHED 06:59 → ANH3MEDSUR 12:12
PROVIDERS: Emergency Medicine; Internal Medicine; Internal Medicine Nephrology; Physician Assistant; Urology; Admitting Provider Family Medicine; Emergency Provider Emergency Medicine; PCP Internal Medicine; Visit Provider Chiropractor
PROC: 0T788DZ Dilation of Bilateral Ureters with Intraluminal Device, Via Natural or Artificial Opening Endoscopic (ICD-10-PCS; CPT 52352; principal; 2023-03-13 17:00)
DX: N17.9 Acute kidney failure, unspecified (principal); I13.0 Hypertensive heart and chronic kidney disease with heart failure and stage 1 through stage 4 chronic kidney disease, or unspecified chronic kidney disease; N13.2 Hydronephrosis with renal and ureteral calculous obstruction; I50.9 Heart failure, unspecified; E11.22 Type 2 diabetes mellitus with diabetic chronic kidney disease; N18.4 Chronic kidney disease, stage 4 (severe); E86.0 Dehydration; A08.4 Viral intestinal infection, unspecified; E83.52 Hypercalcemia; D63.1 Anemia in chronic kidney disease; H40.9 Unspecified glaucoma; I48.0 Paroxysmal atrial fibrillation; E78.5 Hyperlipidemia, unspecified; D72.829 Elevated white blood cell count, unspecified; R31.29 Other microscopic hematuria; Z85.3 Personal history of malignant neoplasm of breast
CPT/HCPCS: 36415; 71046; 74018; 74176; 74420; 76775; 80048; 80053; 81001; 82436; 82550; 82570; 82607; 82728; 82746; 82948; 83036; 83540; 83550; 83690; 83735; 83880; 84100; 84133; 84156; 84300; 84443; 85025; 85027; 85652; 85999; 86038; 86140; 86160; 86162; 86225; 87040; 87086; 87088; 96361; 96365; 96372; 96374; 96375; 96376; 97161; 97165; 99285; A9270; C1758; C1769; C2617; G0378; J0696; J1644; J2405; J2550; J3010; J7030; J7120; Q9966

== ENCOUNTER 2023-03-18 15:58 | Inpatient (IN) | payer MEDICARE, SELFPAY ==
[2023-03-18] VITALS (8 sets, daily range): BP systolic 131–146; BP diastolic 55–84; PULSE 69–77; RESP 17–22; TEMP 36–37.1; O2SAT 85–98; BMI 28.5
--- NOTE | ~2023-03-18 | XR_ITS ---
Portable chest x-ray Comparison: 03/18/2023 Clinical History: CHF Findings: There is probable minimal pulmonary edema pattern, more focal airspace opacity left lung b ase. Cardiomediastinal silhouette is stable. Bones and soft tissues are unremarkable. Impression: Probable minimal pulmonary edema pattern with more confluent atelectasis versus pneumonia at the left lung base. Reviewed, dictated and finalized at location . Impression: Probable minimal pulmonary edema pattern with more confluent atelectasis versus pneumonia at the left lung base.
--- NOTE | ~2023-03-18 | XR_ITS ---
EXAMINATION: XR chest 1V portable DATE: 03/18/2023 17:36 INDICATION: Hypoxia and shortness of breath TECHNIQUE: frontal view of the chest was obtained. COMPARISON: Chest radiograph dated 03/14/2023 FINDINGS: Airspace opacities at the bilateral lower lung zones. No pneumothorax. Cardiomegaly. There are bridgi ng osteophytes at multiple levels in the spine, consistent with diffuse idiopathic skeletal hyperosto sis (DISH). Surgical clips at the left axilla. IMPRESSION: 1. Opacities at the bilateral lower lung zones which could represent atelectasis, pneumonia, mild pul monary edema, small pleural effusions or some combination thereof. 2. Cardiomegaly. Reviewed, dictated and finalized at location A. IMPRESSION: 1. Opacities at the bilateral lower lung zones which could represent atelectasi s, pneumonia, mild pulmonary edema, small pleural effusions or some combination thereof. 2. Cardiomegaly.
--- NOTE | 2023-03-18 16:52 | ECG_ITS ---
Measurements Intervals [place] Rate: 77 P: MT: 0 QRS: 10 QRSD: 97 T: 99 QT: 435 QTc: 494 Interpretive Statements SINUS RHYTHM BORDERLINE ST-T WAVE ABNORMALITY- LAT/HIGH LAT LEADS BASELINE ARTIFACT- I, II, III, AVL, AVF, V3 BORDERLINE ECG NO PREVIOUS ECG AVAILABLE FOR COMPARISON Electronically Signed On 03-18-2023 21:29:45 CDT by Wyatt Pruett D.O.
[2023-03-18 17:17] LABS: Basophils Percent Auto 0.4 % (0.2-1.2); Eosinophils Absolute Auto 0.2 K/mm3 (0-0.3); Hematocrit 25.6 % (37.0-47.0); Hemoglobin 8.4 g/dL (12.0-15.0); Immature Granulocyte Absolute 0.07 K/mm3 (0.00-0.031); Immature Granulocyte Percent A 0.6 % (0-0.5); Lymphocytes Absolute Auto 0.72 K/mm3 (0.9-3.2); Lymphocytes Percent Auto 6.5 % (18.3-44.2); Mean Corpuscular HGB Conc 32.8 g/dl (32-36); Mean Corpuscular Hemoglobin 31.1 pg (26-34); Mean Corpuscular Volume 94.8 fl (80-100); Mean Platelet Volume 9.9 fl (7.4-10.4); Monocytes Absolute Auto 0.8 K/mm3 (0.1-0.6); Monocytes Percent Auto 7.3 % (2.6-8.5); Neutrophils Absolute Auto 9.2 K/mm3 (1.3-6.7); Neutrophils Percent Auto 83.2 % (45.5-73.1); Platelet Count Result 260 k/mm3 (150-375)
[2023-03-18 17:26] LABS: INR 1.1
[2023-03-18 17:27] LABS: Lactic Acid Reflex 0.5 mmol/L (0.7-2.0)
[2023-03-18 17:28] LABS: Partial Thromboplastin Time 35.8 SECONDS (22.3-36.8)
[2023-03-18 17:31] LABS: Base Excess ABG -1.6 mEq/l (+/-2.0); Carboxyhemoglobin 0.5 % THb (0-2.0); Fractional Inspired Oxygen 21 %; HCO3 ABG 22.7 mEq/l (22.0-26.0); Methemoglobin ABG 0.2 %THb (0-1.5); Oxygen Content ABG 12.1 %vol (16.0-22.0); Oxygen Saturation ABG 92.9 % (95.0-100.0); PCO2 ABG 36.4 mmHg (35.0-45.0); PO2 ABG 64.1 mmHg (80.0-100.0); PO2 FiO2 Ratio Arterial Blood 3.05 %; Reduced Hemoglobin 8.3 %THb (0-5.0); Total Hemoglobin 9.4 g/dL (12.0-18.0); pH ABG 7.413 (7.350-7.450)
[2023-03-18 17:35] LABS: Modified Allen's Test Pass; Site Drawn RIGHT RADIAL
[2023-03-18 17:39] LABS: Alanine Aminotransferase 32 U/L (6-35); Albumin Level 3.5 g/dL (3.5-5.1); Alkaline Phosphatase 68 U/L (38-126); Anion Gap 7 mmol/L (8-16); Aspartate Amino Transferase 42 U/L (14-36); Bilirubin,Total 0.4 mg/dL (0.2-1.3); Blood Urea Nitrogen 48 mg/dL (7-17); Calcium 8.9 mg/dL (8.4-10.2); Carbon Dioxide 24 mmol/L (22-30); Chloride 112 mmol/L (98-107); Estimated Glomerular Filt Rate 15; Glucose 41 mg/dL (65-110); NT Pro B Type Natriuretic Pept 6250 pg/mL (19.9-100); Potassium 3.5 mmol/L (3.4-5.0); Sodium 143 mmol/L (137-145)
[2023-03-18 17:54] LABS: SARS-CoV-2 RNA PCR Negative (Negative)
--- NOTE | 2023-03-18 17:59 | ED.RECABL ---
HPI - Recheck/Abnormal Lab/Rx General Chief Complaint: Recheck/Abnormal Lab/Rx Stated Complaint: oxygen level is low Time Seen by Provider: 03/18/23 16:28 Source: patient, family, RN notes reviewed and old records reviewed Mode of arrival: ambulatory Limitations: no limitations History of Present Illness HPI narrative: This is a 78 year old female with history of atrial flutter, CHF, chronic kidney disease who presents for evaluation of hypoxia. Her family states patient was admitted to hospital a few days for treatment of bilateral kidney stones s/p ureteral stents. They states patient needed oxygen on her admission to the hospital, and they were told patient was placed on antibiotics to cover abnormal chest xray. Patient was discharged yesterday off oxygen. They have noticed that patient seems to be having breathing difficulty so they checked her oxygen saturation. They report her saturation was 78% on rest so they brought her back to ER. She was 85 %on room in ER and 95% on 2 L now. Patient reports shortness of breath but denies chest pain, nausea or vomiting. SHe has history of CHF but has not taken her lasix today. Related Data Home Medications Medication Instructions Recorded Confirmed allopurinol 100 mg tablet 100 mg PO HS 09/12/21 03/18/23 amlodipine 10 mg tablet 10 mg PO HS 09/12/21 03/18/23 calcitriol 0.25 mcg capsule 0.25 mcg PO HS 09/12/21 03/18/23 carvedilol 25 mg tablet 25 mg PO Q12H 09/12/21 03/18/23 furosemide 40 mg tablet 40 mg PO QAM 09/12/21 03/18/23 losartan 100 mg tablet 100 mg PO DAILY 09/12/21 03/18/23 rosuvastatin 40 mg tablet 40 mg PO DAILY 09/12/21 03/18/23 Accu-Chek Mariza Plus test strp 03/12/23 03/18/23 apixaban 2.5 mg tablet (Eliquis) 2.5 mg PO BID 03/12/23 03/18/23 clobetasol 0.05 % scalp solution 1 applic topical DAILY 03/12/23 03/22/23 empagliflozin 25 mg tablet 25 mg PO DAILY 03/12/23 03/18/23 (Jardiance) fluocinolone acetonide oil 0.01 % topical HS skin irritation 03/12/23 03/18/23 hydrocortisone 2.5 % topical cream 1 applic topical BID 03/12/23 03/22/23 hydroxyzine HCl 25 mg PO HS 03/12/23 03/18/23 insulin lispro 100 unit/mL 200 unit continuous subcutaneous 03/12/23 03/18/23 subcutaneous solution (Humalog infusion Q72H U-100 Insulin) loratadine 10 mg PO DAILY PRN allergies 03/12/23 03/18/23 triamcinolone acetonide 0.1 % 0.1 applic topical BID 03/12/23 03/18/23 topical ointment ergocalciferol (vitamin D2) 1,250 1,250 mcg PO [id number] 03/18/23 03/18/23 mcg (50,000 unit) capsule (Vitamin D2) ferrous sulfate 325 mg (65 mg 325 mg PO BID 03/18/23 03/18/23 iron) tablet [id number] tablet 1 tablet PO DAILY 03/18/23 03/18/23 Allergies Allergy/AdvReac Type Severity Reaction Status Date / Time No Known Allergies Allergy Verified 03/18/23 17:02 Review of Systems Review of Systems: All systems reviewed & are unremarkable except as noted in HPI and below Constitutional: Constitutional: Denies weakness Cardiovascular: Cardiovascular: Denies syncope, Denies rapid heart rate, Denies irregular heart rhythm, Reports leg edema and Reports dyspnea Respiratory: Respiratory: Denies chest congestion, Denies hemoptysis, Denies excessive phlegm production and Denies dyspnea Gastrointestinal: Gastrointestinal: Denies abdominal pain, Denies hematochezia, Denies diarrhea and Denies vomiting Genitourinary: Genitourinary: Denies hematuria and Denies dysuria Musculoskeletal: Musculoskeletal: Denies joint swelling, Denies loss of height and Denies muscle weakness Neurologic: Denies syncope, Denies focal weakness and Denies weakness [facility] Past Medical History Medical History (Updated 03/19/23 @ 07:16 by Gladys Tunrer MD) Anemia in chronic kidney disease Atrial fibrillation and flutter Cancer of left breast (2009) Status post partial mastectomy and chemo radiation. Chronic kidney disease, stage 4 (severe) Congestive heart failure Glaucoma Hyperlipidemia Hypertension In
[2023-03-18 18:06] LABS: Glucose Point of Care 48 mg/dl (65-105)
[2023-03-18] MEDS: DEXTROSE 50% 25 GM/50 ML SYRINGE IV PUSH (18:19)
[2023-03-18] MEDS: FUROSEMIDE INJ 40 MG/4 ML VIAL IV PUSH (18:19)
[2023-03-18 18:48] LABS: Glucose Point of Care 202 mg/dl (65-105)
[2023-03-18 19:41] LABS: Glucose Point of Care 173 mg/dl (65-105)
--- NOTE | 2023-03-18 19:41 | PC.NURSE ---
pt went to the bathroom in a wheel chair. pt voided and had a BM.
--- NOTE | 2023-03-18 19:42 | PC.NURSE ---
pt was spot checked after going to the restroom. pts 02 sat was 84. pt placed back on 02 at 2L and return to normal within a minute. pt placed back on monitor and is in NSR w/o ectopy noted. Instructions were given on how to purse breath.
--- NOTE | 2023-03-18 19:44 | PC.NURSE ---
pt has a Omni insulin pump that her daughter turned off. If needed pt get a basal rate of 2.5 if needed and was last given on March 11 at 12:05 normal rate 09U/hr.
--- NOTE | 2023-03-18 20:31 | PM.IMHP ---
H&P: HPI History of Present Illness Date/Time: 03/18/23 20:31 Chief Complaint: worsening shortness of breath Narrative: This is a 78-year-old lady with a past medical history including but not limited to hypertension, congestive heart failure, chronic kidney disease, diabetes mellitus and atrial fibrillation who was brought to the emergency department by her family for low oxygen level. The patient was recently admitted to the hospital on March 12 and discharge on March 17; she was admitted for management of bilateral kidney stones, status post ureteral stents. During her most recent hospital stay, the patient needed oxygen. She was originally admitted for evaluation of nausea vomiting and diarrhea. On admission her BUN and creatinine were found to be elevated from her baseline; this was assumed to be likely due to dehydration from volume loss in the setting of vomiting and diarrhea. She was managed with a judicious rehydration while her volume status and renal function were monitored. She developed hypercalcemia with a calcium level of 11.6. Nephrology was consulted; acute kidney injury was deemed to be multifactorial, related to obstruction, prerenal factors in the setting of GI fluid losses, concomitant use of diuretic and ARB prior to admission. Patient was discharged on March 17 without oxygen supplementation. Pradeep at home, her family has noticed that patient seems to be having breathing difficulty so they checked her oxygen saturation. They report her saturation was 78% on rest so they brought her back to ER. ? She was 85 %on room in ER and 95% after oxygen supplementation was started. Patient reports shortness of breath but denies chest pain, nausea or vomiting. ? SHe has history of CHF but has not taken her lasix today. At the time of my evaluation, the patient is already feeling better. She is lying comfortably while wearing her nasal cannula. Patient is hard of hearing. Review of Systems Review of Systems: CONSTITUTIONAL: Negative for any fevers, chills, night sweats, tiredness, fatigue, malaise, anorexia or weight loss. CARDIOVASCULAR: Negative for chest pain, palpitations, dizziness, orthopnea or lower extremity edema. RESPIRATORY: Positive for shortness of breath; negative for cough, wheezing, sputum. GENITOURINARY: Negative for frequency, nocturia, dysuria, hematuria. GYNECOLOGIC: Negative for abnormal bleeding. HEMATOLOGIC: Negative for any abnormal bleeding or bruising. MUSCULOSKELETAL: Negative for joint swelling, stiffness or pain. SKIN: Negative for rashes, eruptions, lesions or dryness. NEUROLOGIC: Negative for any focal neurologic complaints. PSYCHIATRIC: Negative for anxiety, panic, depression. [facility] Past Medical History Medical History (Updated 03/19/23 @ 07:16 by Gladys Turner MD) Anemia in chronic kidney disease Atrial fibrillation and flutter Cancer of left breast (2009) Status post partial mastectomy and chemo radiation. 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 Code status: Full code. Smoking status: Never smoker Alcohol intake: never Substance use: never Lack of Transportation: No Lack of Food: Never True Current Housing: I Have Housing Concerned About Future Housing: No Difficulty Paying Gas/Electric Bills: No Difficulty Paying for Meds: No Currently Unemployed: No Education:
--- NOTE | 2023-03-18 21:17 | PC.NURSE ---
REPORT CALLED TO FAY
--- NOTE | 2023-03-18 21:39 | ADMGEN ---
This patient, Tegan Granados, was admitted to IMU Room 205-01. Patient/family oriented to hospital policies and general routines including ID bracelet, bed and alarms, visiting hours, pain management, procedures, bathroom and other care routines, personal items, smoking policy, room service/diet, and visiting hours. Information on how to activate the Rapid Response Team has been discussed. Patient/Family are encouraged to report perceived risks to care and to ask questions if they do not understand what they are told or what they should do.
[2023-03-18 22:06] LABS: Glucose Point of Care 136 mg/dl (65-105)
--- NOTE | 2023-03-18 22:29 | PC.NURSE ---
Med list provided by daughter and placed in chart.
[2023-03-19] VITALS (16 sets, daily range): BP systolic 119–149; BP diastolic 40–60; PULSE 57–82; RESP 16–18; TEMP 36.4–36.5; O2SAT 93–100
[2023-03-19] MEDS: DEXTROSE 50% 25 GM/50 ML SYRINGE IV PUSH (04:17)
[2023-03-19 04:46] LABS: Glucose Point of Care 147 mg/dl (65-105)
[2023-03-19 04:46] LABS: Glucose Point of Care 52 mg/dl (65-105)
[2023-03-19 06:06] LABS: Glucose Point of Care 96 mg/dl (65-105)
[2023-03-19 08:00] LABS: Glucose Point of Care 59 mg/dl (65-105)
[2023-03-19 08:33] LABS: Glucose Point of Care 89 mg/dl (65-105)
[2023-03-19] MEDS: carvediloL 25 MG TABLET PO (08:33)
[2023-03-19] MEDS: OPTI-GEN TAB 1 TABLET PO (08:33)
[2023-03-19] MEDS: FERROUS SULFATE 324 MG TABLET PO ×2 (08:33→17:04)
[2023-03-19] MEDS: LOSARTAN POTASSIUM 100 MG TABLET PO (08:33)
[2023-03-19] MEDS: EMPAGLIFLOZIN 25 MG TABLET PO (08:33)
[2023-03-19] MEDS: APIXABAN 2.5 MG TABLET PO ×2 (08:33→20:35)
[2023-03-19] MEDS: CLOBETASOL PROPIONATE 0.05% CREAM 15 GM 0.5 APPLIC TOPICAL (08:33)
[2023-03-19] MEDS: FUROSEMIDE INJ 40 MG/4 ML VIAL IV PUSH ×2 (08:34→17:04)
[2023-03-19] MEDS: ROSUVASTATIN 10 MG TABLET 40 MG PO (08:35)
[2023-03-19 09:12] LABS: Glucose Point of Care 117 mg/dl (65-105)
[2023-03-19 11:11] LABS: Glucose Point of Care 102 mg/dl (65-105)
[2023-03-19 11:47] LABS: Glucose Point of Care 93 mg/dl (65-105)
--- NOTE | 2023-03-19 12:16 | PM.IMPN ---
Progress Note: A&P Assessment and Plan (1) Acute respiratory failure with hypoxia: Code(s): J96.01 - Acute respiratory failure with hypoxia Status: Acute Assessment and Plan: PAtient recently admitted with acute kidney injury managed with supportive care and liberal fluid rescussitation, which was necessary to salvage her kidney function. This may have complicated volume status overall. Echo pending (2) Congestive heart failure: Code(s): I50.9 - Heart failure, unspecified Status: Acute Assessment and Plan: Echo pending. Continue diuresis. Monitor electrolytes and kidney function (3) Acute on chronic kidney failure: Code(s): N17.9 - Acute kidney failure, unspecified; N18.9 - Chronic kidney disease, unspecified Status: Acute Assessment and Plan: Nephrology consult Monitor electrolytes and kidney function (4) Anemia in chronic kidney disease: Code(s): N18.9 - Chronic kidney disease, unspecified; D63.1 - Anemia in chronic kidney disease Status: Chronic Assessment and Plan: Moderate well tolerated anemia, normochromic normal 50 with a hemoglobin of 8.4. Obtain down panel. Patient may benefit from erythropoiesis stimulating agents, once iron stores are confirmed to be replenished.. (5) Hyperlipidemia: Code(s): E78.5 - Hyperlipidemia, unspecified Status: Acute Assessment and Plan: Continue home medication. (6) Hypertension: Code(s): I10 - Essential (primary) hypertension Status: Chronic Assessment and Plan: Resume home medication. BP 149/60. (7) Atrial fibrillation and flutter: Code(s): I48.91 - Unspecified atrial fibrillation; I48.92 - Unspecified atrial flutter Status: Acute Assessment and Plan: Continue rate control with carvedilol. Continue chronic anticoagulation with renally dosed Eliquis. (8) Insulin dependent diabetes mellitus: Status: Chronic Assessment and Plan: Patient previously insulin dependent; recent diet HGB A1c of 5.6 may herald worsening renal function. Currently patient on Jardiance. Subjective Date/time seen: 03/19/23 12:16 Interval history: No complaints Exam Narrative: GENERAL: The patient is alert and oriented, in no apparent distress. She is very hard of hearing, but is pleasant and conversant in full sentences. HEENT: Pupils are equally round and briskly reactive to light. Extraocular muscles are intact. Oral mucous membranes are moist without lesions. NECK: The patient has no noted JVD. No adenopathy is appreciated. CHEST/LUNGS: Lungs are clear bilaterally without rhonchi, rales, or wheezes. There is no subcutaneous air appreciated. There is no tenderness to the chest wall. HEART: The patient has a regular rate and rhythm. No murmurs, rubs, or gallops are appreciated. Distal pulses are 2+. No carotid bruits appreciated. ABDOMEN: The patient?s abdomen is soft, nontender, and nondistended. Bowel sounds are positive. No organomegaly is appreciated. No masses are appreciated. There are no peritoneal signs. There is no Ortiz?s sign. EXTREMITIES: The patient has no peripheral edema. There is no focal long bone tenderness or deformity. SKIN: The patient?s skin is warm and dry, without rashes or lesions. PSYCHIATRIC: The patient has normal mental status and has an appropriate affect. NEUROLOGIC: Nonfocal. Sensation is intact throughout. Objective Data Vital Signs Vital Signs: Vital Signs - 24 hr 03/18/23 16:19 03/18/23 16:30 03/18/23 16:33 Temperature 97.9 F Pulse Rate 76 Respiratory Rate 19 Blood Pressure 139/55 L Pulse Oximetry 90 85 L 95 Oxygen Delivery Room Air Room Air Nasal Cannula Oxygen Flow Rate 2 03/18/23 19:26 03/18/23 21:15 03/18/23 19:30 Temperature 98.7 F 98.3 F Pulse Rate 70 70 Respiratory Rate 17 20 Blood Pressure 134/84 131/84 Pulse Oximetry 98 93 98 Oxygen Delivery Oxygen Flow Rate 2 03/18/23
--- NOTE | 2023-03-19 15:31 | ECG_ITS ---
Measurements Intervals [place] Rate: 76 P: 61 FL: 168 QRS: 0 QRSD: 91 T: 104 QT: 450 QTc: 508 Interpretive Statements SINUS RHYTHM BORDERLINE ST-T WAVE ABNORMALITY- LAT/HIGH LAT LEADS PROLONGED QT INTERVAL BASELINE WANDER- I, II ABNORMAL ECG COMPARED TO ECG 03/18/2023 17:07:13 NO SIGNIFICANT CHANGES Electronically Signed On 03-19-2023 15:45:25 CDT by Wyatt Pruett D.O.
[2023-03-19 16:38] LABS: Glucose Point of Care 85 mg/dl (65-105)
--- NOTE | 2023-03-19 18:00 | PC.NURSE ---
Pt has several episodes of bradycardia this shift HR dropped to the 30s, 40s pt was asymptomatic this nurse made Dr Washburn aware he gave order to decrease the carvedilol to 6.25 mg BID, EKG obtained and ABG as well
[2023-03-19 20:02] LABS: Glucose Point of Care 163 mg/dl (65-105)
[2023-03-19] MEDS: hydrOXYzine HCL 25 MG TABLET PO (20:32)
[2023-03-19] MEDS: allopurinoL 100 MG TABLET PO (20:32)
[2023-03-19] MEDS: calcitrioL 0.25 MCG CAPSULE PO (20:32)
[2023-03-19] MEDS: amLODIPine BESYLATE 5 MG TABLET 10 MG PO (20:35)
[2023-03-19] MEDS: carvediloL 6.25 MG TABLET PO (20:37)
[2023-03-19 23:50] LABS: Glucose Point of Care 85 mg/dl (65-105)
[2023-03-20] VITALS (15 sets, daily range): BP systolic 132–154; BP diastolic 55–73; PULSE 69–88; RESP 16–20; TEMP 36.4–37.1; O2SAT 94–100
--- NOTE | 2023-03-20 | ECHO_ITS ---
Patient Info Name: Tegan Granados Age: 78 years : 1945 Gender: Female Ht: 62 in Wt: 154 lbs BSA: 1.77 m2 HR: 89 bpm BP: 154 / 61 mmHg Heart Rhythm: Sinus Rhythm Technical Quality: Good Exam Date: 03/20/2023 10:37 AM Exam Location: [facility] Patient Status: Outpatient Admit Date: 03/18/2023 Staff Ordering Physician: Lam Washburn MD Seasonal Greenery Bundler: Subha Calle RDCS Attending Provider: Lam Washburn MD Referring Physician: Wu GALO; Exam Type: CA echo doppler color flow Study Info Indications I50.9 - Heart failure, unspecified Complete two-dimensional, color flow and Doppler transthoracic echocardiogram is performed. Strain analysis performed. Summary 1. Complete two-dimensional, color flow and Doppler transthoracic echocardiogram is performed. 2. Strain analysis performed. 3. Left ventricular chamber dimension is normal. 4. Left ventricular systolic function is normal, estimated at 65-70%. 5. There is mildly increased left ventricular wall thickness. 6. The left ventricular diastolic function is grade I diastolic dysfunction. 7. Global longitudinal strain is abnormal at -12 %. 8. The basal inferior wall, and basal inferoseptal are hypokinetic. 9. Left atrial chamber dimension is mildly enlarged. 10. There is mild aortic valve sclerosis. 11. There is mild mitral valve regurgitation. 12. There is mild tricuspid valve regurgitation. 13. Moderate pulmonary hypertension, estimated pulmonary arterial systolic pressure is 53 mmHg. 14. There is small pericardial effusion. Left Ventricle Left ventricular chamber dimension is normal. Left ventricular systolic function is normal, estimated at 65-70%. There is mildly increased left ventricular wall thickness. The left ventricular diastolic function is grade I diastolic dysfunction. Global longitudinal strain is abnormal at -12 %. The basal inferior wall, and basal inferoseptal are hypokinetic. All other ortega appear normal. Right Ventricle Right ventricular chamber dimension is normal. Right ventricular systolic function is normal. Left Atria Left atrial chamber dimension is mildly enlarged. Right Atria Right atrial chamber dimension is normal. Atrial Septum Intact interatrial septum visualized by color flow imaging. Aortic Valve The aortic valve is trileaflet. There is mild aortic valve sclerosis. There is no aortic valve stenosis. There is trace aortic valve regurgitation. Pulmonic Valve The pulmonic valve is normal. There is no pulmonic valve stenosis. There is trace pulmonic regurgitation. Mitral Valve The mitral valve has normal leaflets. There is no mitral valve stenosis. There is mild mitral valve regurgitation. Tricuspid Valve The tricuspid valve leaflets are normal. There is no significant tricuspid valve stenosis. There is mild tricuspid valve regurgitation. Moderate pulmonary hypertension, estimated pulmonary arterial systolic pressure is 53 mmHg. Pericardium/Pleural The pericardium appears normal. There is small pericardial effusion. Inferior Vena Cava Normal inferior vena cava with >50% collapse upon inspiration consistent with normal right atrial pressure, 10 mmHg. Aorta The aortic root size at the sinus of Valsalva is normal. Left Ventricular Outflow Tract Name Value Normal LVOT 2D
--- NOTE | 2023-03-20 00:02 | PC.NURSE ---
Pt glucose at 2346 was 85. Patient ate sherbert and herminia crackers.
[2023-03-20 02:24] LABS: Glucose Point of Care 127 mg/dl (65-105)
[2023-03-20 05:05] LABS: Glucose Point of Care 111 mg/dl (65-105)
[2023-03-20 06:02] LABS: Glucose Point of Care 76 mg/dl (65-105)
--- NOTE | 2023-03-20 06:16 | PC.NURSE ---
Patient glucose was 76 at 0600. Pt received chinyere bustillos.
[2023-03-20 07:48] LABS: Glucose Point of Care 143 mg/dl (65-105)
[2023-03-20 09:44] LABS: Basophils Absolute Auto 0.1 K/mm3 (0.0-0.1); Basophils Percent Auto 0.6 % (0.2-1.2); Eosinophils Absolute Auto 0.5 K/mm3 (0-0.3); Eosinophils Percent Auto 4.8 % (0-4.4); Hematocrit 25.8 % (37.0-47.0); Hemoglobin 8.4 g/dL (12.0-15.0); Immature Granulocyte Absolute 0.11 K/mm3 (0.00-0.031); Immature Granulocyte Percent A 1.1 % (0-0.5); Lymphocytes Absolute Auto 1.04 K/mm3 (0.9-3.2); Mean Corpuscular HGB Conc 32.6 g/dl (32-36); Mean Corpuscular Hemoglobin 30.9 pg (26-34); Mean Corpuscular Volume 94.9 fl (80-100); Monocytes Absolute Auto 1.1 K/mm3 (0.1-0.6); Monocytes Percent Auto 10.3 % (2.6-8.5); Neutrophils Absolute Auto 7.6 K/mm3 (1.3-6.7); Neutrophils Percent Auto 73.2 % (45.5-73.1); Platelet Count Result 312 k/mm3 (150-375); Red Blood Count 2.72 M/mm3 (4.2-5.4); White Blood Count 10.4 K/mm3 (4.5-10.0)
[2023-03-20 09:59] LABS: Anion Gap 6 mmol/L (8-16); Blood Urea Nitrogen 40 mg/dL (7-17); Carbon Dioxide 31 mmol/L (22-30); Chloride 106 mmol/L (98-107); Estimated CRCL calculation 13 ml/min; Estimated Glomerular Filt Rate 18; Glucose 155 mg/dL (65-110); Potassium 3.8 mmol/L (3.4-5.0); Sodium 143 mmol/L (137-145)
[2023-03-20 10:01] LABS: Glucose Point of Care 157 mg/dl (65-105)
[2023-03-20] MEDS: carvediloL 6.25 MG TABLET PO ×2 (11:19→20:24)
[2023-03-20] MEDS: ROSUVASTATIN 10 MG TABLET 40 MG PO (11:19)
[2023-03-20] MEDS: EMPAGLIFLOZIN 25 MG TABLET PO (11:19)
[2023-03-20] MEDS: OPTI-GEN TAB 1 TABLET PO (11:19)
[2023-03-20] MEDS: FERROUS SULFATE 324 MG TABLET PO ×2 (11:19→18:25)
[2023-03-20] MEDS: LOSARTAN POTASSIUM 100 MG TABLET PO (11:19)
[2023-03-20] MEDS: ERGOCALCIFEROL 50,000 UNITS CAPSULE 50000 UNITS PO (11:20)
[2023-03-20] MEDS: APIXABAN 2.5 MG TABLET PO ×2 (11:20→20:23)
[2023-03-20] MEDS: FUROSEMIDE INJ 40 MG/4 ML VIAL IV PUSH ×2 (11:21→18:26)
--- NOTE | 2023-03-20 11:25 | PM.CNNEP ---
Assessment and Plan Assessment and plan (1) GARRISON (acute kidney injury): Code(s): N17.9 - Acute kidney failure, unspecified Status: Acute Assessment and Plan: as noted on last hospitalization multifactorial etiology: previous obstruction/hydronephrosis prerenal factors (nausea + vomiting + diarrhea) use of diuretics + ARB prior that hospitalization infection (UA suggestive; operative note reviewed) evaluation to date on last hospitali stay: CT of abdomen on admission with multiple small distal right ureteral stones, largest measuring 3 mm, with mild right hydronephrosis urine electrolytes prerenal significant proteinuria urine eosinophils negative CPK mildly elevated but not enough to affect kidney function renal slowly improving however, need for diuresis may cause further fluctuations (2) Chronic kidney disease, stage 4 (severe): Code(s): N18.4 - Chronic kidney disease, stage 4 (severe) Status: Chronic Assessment and Plan: preasent at least as far back as 2021 if not longer baseline creatinine seems to run around 1.9 - 2.5mg/dl (although has been as high as 2.9mg/dl) presumably secondary to hypertension, diabetes, vascular disease and age-related change follows with Dr. Misha Wiseman for CKD management (3) Acute respiratory failure with hypoxia: Code(s): J96.01 - Acute respiratory failure with hypoxia Status: Acute Assessment and Plan: seems to be secondary to CHF exacerbation however, clinically better at this time follow respiratory status (4) Congestive heart failure: Code(s): I50.9 - Heart failure, unspecified Status: Acute Assessment and Plan: as suspected based on history and presentation IV diuresis follow daily weights, I/Os, and respiratory status suspect precipitated by #1 and previous IVF resuscitation follow-up on Echo (5) Hypertension: Code(s): I10 - Essential (primary) hypertension Status: Chronic Assessment and Plan: reasonable control at this time follow trend of hemodynamics (6) Anemia: Code(s): D64.9 - Anemia, unspecified Status: Chronic Assessment and Plan: related to known CKD follows with Dr. Casillas for Aranesp injections follow trend of H/H (7) Insulin dependent diabetes mellitus: Status: Chronic Assessment and Plan: follow accuchecks glycemic control per hospitalists I will continue follow the patient with you while she remains hospitalized and make further recommendations as needed. Thank you for allowing me to participate in care this patient. History of Present Illness Reason for Consult Consult date: 03/20/23 Reason for consult: acute renal failure (on chronic kidney disease) Chief Complaint Chief complaint: Acute Respirstory Failure w hypoxia, CHF History of Present Illness Narrative: The patient is a 78-year-old female with a past medical history as outlined below who presented to [facility] Emergency room for further evaluation of hypoxia. The patient was just recently hospitalized here at [facility] for acute kidney injury on chronic kidney disease secondary to obstructive uropathy from nephrolithiasis. She underwent cystoscopy as well as bilateral ureteral stent placement and her renal function was improving by the time of discharge Following this intervention as well as IV fluid resuscitation and optimization of her overall medical status. She was eventually discharged once her overall condition stabilized. Apparently, while the patient was at home, the patient's family noticed that her respiratory status seemed to be fluctuating. It appear that she had some difficulty breathing in general. They checked her oxygen saturations and reportedly was 70% on room air. Given this finding in conjunction with her fluctuating respiratory status, the family about her back to the [facility]
--- NOTE | 2023-03-20 11:25 | P.CONNP_ITS ---
Assessment and Plan Assessment and plan (1) GARRISON (acute kidney injury): Code(s): N17.9 - Acute kidney failure, unspecified Status: Acute Assessment and Plan: * as noted on last hospitalization * multifactorial etiology: * previous obstruction/hydronephrosis * prerenal factors (nausea + vomiting + diarrhea) * use of diuretics + ARB prior that hospitalization * infection (UA suggestive; operative note reviewed) * evaluation to date on last hospitali stay: * CT of abdomen on admission with multiple small distal right ureteral stones, largest measuring 3 mm, with mild right hydronephrosis * urine electrolytes prerenal * significant proteinuria * urine eosinophils negative * CPK mildly elevated but not enough to affect kidney function * renal slowly improving * however, need for diuresis may cause further fluctuations (2) Chronic kidney disease, stage 4 (severe): Code(s): N18.4 - Chronic kidney disease, stage 4 (severe) Status: Chronic Assessment and Plan: * preasent at least as far back as 2021 if not longer * baseline creatinine seems to run around 1.9 - 2.5mg/dl (although has been as high as 2.9mg/dl) * presumably secondary to hypertension, diabetes, vascular disease and age- related change * follows with Dr. Misha Wiseman for CKD management (3) Acute respiratory failure with hypoxia: Code(s): J96.01 - Acute respiratory failure with hypoxia Status: Acute Assessment and Plan: * seems to be secondary to CHF exacerbation * however, clinically better at this time * follow respiratory status (4) Congestive heart failure: Code(s): I50.9 - Heart failure, unspecified Status: Acute Assessment and Plan: * as suspected based on history and presentation * IV diuresis * follow daily weights, I/Os, and respiratory status * suspect precipitated by #1 and previous IVF resuscitation * follow-up on Echo (5) Hypertension: Code(s): I10 - Essential (primary) hypertension Status: Chronic Assessment and Plan: * reasonable control at this time * follow trend of hemodynamics (6) Anemia: Code(s): D64.9 - Anemia, unspecified Status: Chronic Assessment and Plan: * related to known CKD * follows with Dr. Casillas for Aranesp injections * follow trend of H/H (7) Insulin dependent diabetes mellitus: Status: Chronic Assessment and Plan: * follow accuchecks * glycemic control per hospitalists I will continue follow the patient with you while she remains hospitalized and make further recommendations as needed. Thank you for allowing me to participate in care this patient. History of Present Illness Reason for Consult Consult date: 03/20/23 Reason for consult: acute renal failure (on chronic kidney disease) Chief Complaint Chief complaint: Acute Respirstory Failure w hypoxia, CHF History of Present Illness Narrative: The patient is a 78-year-old female with a past medical history as outlined below who presented to [facility] Emergency room for further evaluation of hypoxia. The patient was just recently hospitalized here at [facility] for acute kidney injury on chronic kidney disease secondary to obstructive uropathy from nephrolithiasis. She underwent cystoscopy as well as bilateral ureteral stent placement and her renal function was improving by the time of discharge Following this intervention as well as IV fluid resuscitation and optimization of her overall medic
[2023-03-20 11:58] LABS: Glucose Point of Care 104 mg/dl (65-105)
--- NOTE | 2023-03-20 12:49 | PM.IMPN ---
Progress Note: A&P Assessment and Plan (1) Acute respiratory failure with hypoxia: Code(s): J96.01 - Acute respiratory failure with hypoxia Status: Acute Assessment and Plan: PAtient recently admitted with acute kidney injury managed with supportive care and liberal fluid rescussitation, which was necessary to salvage her kidney function. This may have complicated volume status overall. Echo pending (2) Congestive heart failure: Code(s): I50.9 - Heart failure, unspecified Status: Acute Assessment and Plan: Echo pending. Continue diuresis. Monitor electrolytes and kidney function (3) Acute on chronic kidney failure: Code(s): N17.9 - Acute kidney failure, unspecified; N18.9 - Chronic kidney disease, unspecified Status: Acute Assessment and Plan: Nephrology consult Monitor electrolytes and kidney function (4) Anemia in chronic kidney disease: Code(s): N18.9 - Chronic kidney disease, unspecified; D63.1 - Anemia in chronic kidney disease Status: Chronic Assessment and Plan: Moderate well tolerated anemia, normochromic normal 50 with a hemoglobin of 8.4. Obtain down panel. Patient may benefit from erythropoiesis stimulating agents, once iron stores are confirmed to be replenished.. (5) Hyperlipidemia: Code(s): E78.5 - Hyperlipidemia, unspecified Status: Acute Assessment and Plan: Continue home medication. (6) Hypertension: Code(s): I10 - Essential (primary) hypertension Status: Chronic Assessment and Plan: Resume home medication. BP 149/60. (7) Atrial fibrillation and flutter: Code(s): I48.91 - Unspecified atrial fibrillation; I48.92 - Unspecified atrial flutter Status: Acute Assessment and Plan: Continue rate control with carvedilol. Continue chronic anticoagulation with renally dosed Eliquis. (8) Insulin dependent diabetes mellitus: Status: Chronic Assessment and Plan: Patient previously insulin dependent; recent diet HGB A1c of 5.6 may herald worsening renal function. Currently patient on Jardiance. Subjective Date/time seen: 03/20/23 12:49 Interval history: No complaints Tolerating diuretics Exam Narrative: GENERAL: The patient is alert and oriented, in no apparent distress. She is very hard of hearing, but is pleasant and conversant in full sentences. HEENT: Pupils are equally round and briskly reactive to light. Extraocular muscles are intact. Oral mucous membranes are moist without lesions. NECK: The patient has no noted JVD. No adenopathy is appreciated. CHEST/LUNGS: Lungs are clear bilaterally without rhonchi, rales, or wheezes. There is no subcutaneous air appreciated. There is no tenderness to the chest wall. HEART: The patient has a regular rate and rhythm. No murmurs, rubs, or gallops are appreciated. Distal pulses are 2+. No carotid bruits appreciated. ABDOMEN: The patient?s abdomen is soft, nontender, and nondistended. Bowel sounds are positive. No organomegaly is appreciated. No masses are appreciated. There are no peritoneal signs. There is no Ortiz?s sign. EXTREMITIES: The patient has no peripheral edema. There is no focal long bone tenderness or deformity. SKIN: The patient?s skin is warm and dry, without rashes or lesions. PSYCHIATRIC: The patient has normal mental status and has an appropriate affect. NEUROLOGIC: Nonfocal. Sensation is intact throughout. Objective Data Vital Signs Vital Signs: Vital Signs - 24 hr 03/19/23 14:00 03/19/23 16:00 03/19/23 16:00 Temperature Pulse Rate 64 76 Respiratory Rate Blood Pressure Pulse Oximetry 98 Oxygen Delivery Nasal Cannula Oxygen Flow Rate 2 03/19/23 16:00 03/19/23 18:00 03/19/23 19:58 Temperature 97.6 F 97.7 F Pulse Rate 76 74 72 Respiratory Rate 18 16 Blood Pressure 128/60 119/40 L Pulse Oximetry 97 98 Oxygen Delivery Oxygen Flow Rate 03/19/23 20:37
--- NOTE | 2023-03-20 15:03 | PC.NURSE ---
This patient, Tegan Granados, was transferred to [ 245] on 03/20/23 at 1430. Personal belongings sent with patient. Report given to [Bibiana SAMAYOA]. Appropriate documentation sent with patient.
--- NOTE | 2023-03-20 16:58 | PC.NURSE ---
This patient was received from [facility] into room 254 @ 1440.
[2023-03-20] MEDS: HYDROCORTISONE 2.5% CREAM 30 GM TUBE 1 APPLIC TOPICAL (18:26)
[2023-03-20] MEDS: TRIAMCINOLONE ACET 0.1% OINT 15 GM TUBE 0.1 APPLIC TOPICAL (18:26)
[2023-03-20] MEDS: hydrOXYzine HCL 25 MG TABLET PO (20:23)
[2023-03-20] MEDS: amLODIPine BESYLATE 5 MG TABLET 10 MG PO (20:23)
[2023-03-20] MEDS: allopurinoL 100 MG TABLET PO (20:24)
[2023-03-20] MEDS: calcitrioL 0.25 MCG CAPSULE PO (20:24)
[2023-03-21] VITALS (7 sets, daily range): BP systolic 129–146; BP diastolic 44–57; PULSE 73–88; RESP 16–20; TEMP 36.4–36.8; O2SAT 94–97
[2023-03-21 05:06] LABS: Basophils Absolute Auto 0.1 K/mm3 (0.0-0.1); Basophils Percent Auto 0.7 % (0.2-1.2); Eosinophils Absolute Auto 0.4 K/mm3 (0-0.3); Eosinophils Percent Auto 4.1 % (0-4.4); Hematocrit 26.2 % (37.0-47.0); Hemoglobin 8.5 g/dL (12.0-15.0); Immature Granulocyte Absolute 0.11 K/mm3 (0.00-0.031); Immature Granulocyte Percent A 1.1 % (0-0.5); Lymphocytes Absolute Auto 1.22 K/mm3 (0.9-3.2); Lymphocytes Percent Auto 12.1 % (18.3-44.2); Mean Corpuscular HGB Conc 32.4 g/dl (32-36); Mean Corpuscular Hemoglobin 31.1 pg (26-34); Mean Platelet Volume 9.9 fl (7.4-10.4); Monocytes Absolute Auto 1.2 K/mm3 (0.1-0.6); Monocytes Percent Auto 11.8 % (2.6-8.5); Neutrophils Absolute Auto 7.1 K/mm3 (1.3-6.7); Neutrophils Percent Auto 70.2 % (45.5-73.1); Platelet Count Result 332 k/mm3 (150-375); Red Blood Count 2.73 M/mm3 (4.2-5.4); Red Cell Distribution Width 14.9 % (11.5-14.5); White Blood Count 10.1 K/mm3 (4.5-10.0)
[2023-03-21 05:23] LABS: Albumin Level 3.3 g/dL (3.5-5.1); Anion Gap 2 mmol/L (8-16); Blood Urea Nitrogen 42 mg/dL (7-17); Carbon Dioxide 35 mmol/L (22-30); Chloride 106 mmol/L (98-107); Estimated CRCL calculation 13 ml/min; Estimated Glomerular Filt Rate 19; Glucose 71 mg/dL (65-110); Phosphorus 3.1 mg/dL (2.5-4.5); Potassium 3.6 mmol/L (3.4-5.0); Sodium 143 mmol/L (137-145)
[2023-03-21 08:39] LABS: Glucose Point of Care 89 mg/dl (65-105)
[2023-03-21] MEDS: ROSUVASTATIN 10 MG TABLET 40 MG PO (10:35)
[2023-03-21] MEDS: APIXABAN 2.5 MG TABLET PO ×2 (10:36→21:18)
[2023-03-21] MEDS: EMPAGLIFLOZIN 25 MG TABLET PO (10:36)
[2023-03-21] MEDS: FERROUS SULFATE 324 MG TABLET PO ×2 (10:36→16:25)
[2023-03-21] MEDS: LOSARTAN POTASSIUM 100 MG TABLET PO (10:36)
[2023-03-21] MEDS: FUROSEMIDE INJ 40 MG/4 ML VIAL IV PUSH ×2 (10:36→16:25)
[2023-03-21] MEDS: OPTI-GEN TAB 1 TABLET PO (10:36)
[2023-03-21] MEDS: TRIAMCINOLONE ACET 0.1% OINT 15 GM TUBE 0.1 APPLIC TOPICAL ×2 (10:36→16:25)
[2023-03-21] MEDS: HYDROCORTISONE 2.5% CREAM 30 GM TUBE 1 APPLIC TOPICAL ×2 (10:36→16:25)
[2023-03-21] MEDS: CLOBETASOL PROPIONATE 0.05% CREAM 15 GM 0.5 APPLIC TOPICAL (10:36)
[2023-03-21] MEDS: EPOETIN ALFA-EPBX 10,000 UNITS/ML VIAL 10000 UNITS SUB-Q (10:36)
[2023-03-21] MEDS: carvediloL 6.25 MG TABLET PO ×2 (10:39→21:18)
[2023-03-21 11:56] LABS: Glucose Point of Care 150 mg/dl (65-105)
--- NOTE | 2023-03-21 13:29 | PM.IMPN ---
Progress Note: A&P Assessment and Plan (1) Acute respiratory failure with hypoxia: Code(s): J96.01 - Acute respiratory failure with hypoxia Status: Acute Assessment and Plan: PAtient recently admitted with acute kidney injury managed with supportive care and liberal fluid rescussitation, which was necessary to salvage her kidney function. This may have complicated volume status overall. Echo showing EF of 65-70% with grade 1 diastolic dysfunction. She is basal inferior wall and basal inferior septal wall hypokinesis and moderate pulmonary hypertension with a PASP of 53. Tolerating IV Lasix. Lungs are clear. Off oxygen. Continue to follow. (2) Congestive heart failure: Code(s): I50.9 - Heart failure, unspecified Status: Acute Assessment and Plan: Echo as mentioned above. Suspect her respiratory failure from acute on chronic diastolic CHF. She is already on pack low flows in. Currently on IV Lasix. Renal function improving. Continue to follow. (3) Acute on chronic kidney failure: Code(s): N17.9 - Acute kidney failure, unspecified; N18.9 - Chronic kidney disease, unspecified Status: Acute Assessment and Plan: Baseline creatinine this year is 2.3-2.9 range.? Creatinine peaked at 4.[address] scan does show right obstructing renal stone with hydronephrosis last admission that contributed to her renal failure.?Cr still elevated on admission but has been trending down. Follow. Appreciate nephrolog input. (4) Anemia in chronic kidney disease: Code(s): N18.9 - Chronic kidney disease, unspecified; D63.1 - Anemia in chronic kidney disease Status: Chronic Assessment and Plan: Hgb mostly in the 8 range last admission and unchanged this admission. Continue EPO. (5) Hyperlipidemia: Code(s): E78.5 - Hyperlipidemia, unspecified Status: Acute Assessment and Plan: LFTs okay. Continue Crestor (6) Hypertension: Code(s): I10 - Essential (primary) hypertension Status: Chronic Assessment and Plan: Patient's blood pressure was reviewed on 03/21/23 Blood pressure remains reasonably well controlled. Will continue to monitor (7) Atrial fibrillation and flutter: Code(s): I48.91 - Unspecified atrial fibrillation; I48.92 - Unspecified atrial flutter Status: Acute Assessment and Plan: EKG showing normal sinus. Continue carvedilol. Continue chronic anticoagulation with renally dosed Eliquis. (8) Insulin dependent diabetes mellitus: Status: Chronic Assessment and Plan: Patient previously insulin dependent; recent A1c of 5.6 may herald worsening renal function. Glucose remains well controlled. Currently patient on Jardiance. Subjective Date/time seen: 03/21/23 13:29 Interval history: 78yo female with HTN, CHF, CKD, DM and AFib here for shortness of breath. Assuming care. Chart reviewed. No complaints today. No orthopnea. Slept well. She has been up walking to the bathroom. No chest pain or shortness of breath. Exam Narrative: AF 98.1 146/57 80 18 97% ra Gen - NARD Chest - CTA bilaterally, nml RR CV - RRR S1/S2 Abd - Soft, NT/ND, Positive BS Ext - trace R>L pedal edema Neuro - Alert and oriented. Nonfocal exam. Psych - Nml mood and affect Skin - Warm and dry Objective Data Vital Signs Vital Signs: Vital Signs - 24 hr 03/20/23 15:13 03/20/23 20:24 03/20/23 20:00 Temperature 98.7 F Pulse Rate 77 77 Respiratory Rate 16 Blood Pressure 141/62 H Pulse Oximetry 98 Oxygen Delivery Room Air 03/20/23 22:01 03/20/23 22:55 03/21/23 06:00 Temperature 98.3 F 98.1 F Pulse Rate 80 80 Respiratory Rate 20 18 Blood Pressure 132/73 146/57 H Pulse Oximetry 99 94 97 Oxygen Delivery Room Air 03/21/23 10:39 03/21/23 08:00 Temperature Pulse Rate 80 80 Respiratory Rate 18 Blood Pressure Pulse Oximetry 97 Oxyge
--- NOTE | 2023-03-21 14:07 | PM.PNNEP ---
Progress Note: A&P Assessment and Plan (1) GARRISON (acute kidney injury): Code(s): N17.9 - Acute kidney failure, unspecified Status: Acute Assessment and Plan: as noted on last hospitalization multifactorial etiology: previous obstruction/hydronephrosis prerenal factors (nausea + vomiting + diarrhea) use of diuretics + ARB prior that hospitalization infection (UA suggestive; operative note reviewed) evaluation to date on last hospitali stay: CT of abdomen on admission with multiple small distal right ureteral stones, largest measuring 3 mm, with mild right hydronephrosis urine electrolytes prerenal significant proteinuria urine eosinophils negative CPK mildly elevated but not enough to affect kidney function renal function slowly improving however, need for diuresis may cause further fluctuations - follow closely (2) Chronic kidney disease, stage 4 (severe): Code(s): N18.4 - Chronic kidney disease, stage 4 (severe) Status: Chronic Assessment and Plan: preasent at least as far back as 2021 if not longer baseline creatinine seems to run around 1.9 - 2.5mg/dl (although has been as high as 2.9mg/dl) presumably secondary to hypertension, diabetes, vascular disease and age-related change follows with Dr. Misha Wiseman for CKD management (3) Acute respiratory failure with hypoxia: Code(s): J96.01 - Acute respiratory failure with hypoxia Status: Acute Assessment and Plan: seems to be secondary to CHF exacerbation however, clinically better at this time follow respiratory status (4) Congestive heart failure: Code(s): I50.9 - Heart failure, unspecified Status: Acute Assessment and Plan: as suspected based on history and presentation - acute on chronic diastolic heart failure IV diuresis follow daily weights, I/Os, and respiratory status suspect precipitated by #1 and previous IVF resuscitation (5) Hypertension: Code(s): I10 - Essential (primary) hypertension Status: Chronic Assessment and Plan: reasonable control at this time follow trend of hemodynamics (6) Anemia: Code(s): D64.9 - Anemia, unspecified Status: Chronic Assessment and Plan: related to known CKD follows with Dr. Casillas for Aranesp injections follow trend of H/H Epogen while hospitalized (7) Insulin dependent diabetes mellitus: Status: Chronic Assessment and Plan: follow accuchecks glycemic control per hospitalists Will continue to follow. Subjective Date/time seen: 03/21/23 14:07 Interval history: Follow-up for acute kidney injury/acute renal failure on chronic kidney disease. She appears to being relatively well at the time of my visit; no apparent distress noted; slow improvement in renal function noted in spite of IV diuretic therapy; no complaints of shortness of breath voiced. Exam Narrative: General: elderly but WD/WN AA female in NAD Heart: normal S1 and S2; no rub Lungs: clear anteriorly; decreased at bases Abdomen: soft, nontender, nondistended, positive bowel sounds Extremities: no cyanosis or clubbing; trace edema Skin: warm and dry Objective Data Vital Signs Vital Signs: Vital Signs Temp Pulse Resp BP Pulse Ox O2 Del Method 03/21/23 14:00 98.3 F 78 20 139/56 L 96 03/21/23 08:00 80 18 97 Room Air 03/21/23 10:39 80 03/21/23 06:00 98.1 F 80 18 146/57 H 97 03/20/23 22:55 94 Room Air 03/20/23 22:01 98.3 F 80 20 132/73 99 03/20/23 20:00 Room Air 03/20/23 20:24 77 Intake/Output Intake/Output: Intake & Output 03/18/23 03/19/23 03/20/23 03/21/23 23:59 23:59 23:59 23:59 Intake Total 1930 1505 1030 Output Total 975 800 Balance 955 1505 230 Meds/Results Medications: Active Medications Generic Name Dose Route Start Last Admin Trade Name Freq PRN Reason Stop Dose Admin All
--- NOTE | 2023-03-21 14:07 | P.PNNP_ITS ---
Progress Note: A&P Assessment and Plan (1) GARRISON (acute kidney injury): Code(s): N17.9 - Acute kidney failure, unspecified Status: Acute Assessment and Plan: * as noted on last hospitalization * multifactorial etiology: * previous obstruction/hydronephrosis * prerenal factors (nausea + vomiting + diarrhea) * use of diuretics + ARB prior that hospitalization * infection (UA suggestive; operative note reviewed) * evaluation to date on last hospitali stay: * CT of abdomen on admission with multiple small distal right ureteral stones, largest measuring 3 mm, with mild right hydronephrosis * urine electrolytes prerenal * significant proteinuria * urine eosinophils negative * CPK mildly elevated but not enough to affect kidney function * renal function slowly improving * however, need for diuresis may cause further fluctuations - follow closely (2) Chronic kidney disease, stage 4 (severe): Code(s): N18.4 - Chronic kidney disease, stage 4 (severe) Status: Chronic Assessment and Plan: * preasent at least as far back as 2021 if not longer * baseline creatinine seems to run around 1.9 - 2.5mg/dl (although has been as high as 2.9mg/dl) * presumably secondary to hypertension, diabetes, vascular disease and age- related change * follows with Dr. Misha Wiseman for CKD management (3) Acute respiratory failure with hypoxia: Code(s): J96.01 - Acute respiratory failure with hypoxia Status: Acute Assessment and Plan: * seems to be secondary to CHF exacerbation * however, clinically better at this time * follow respiratory status (4) Congestive heart failure: Code(s): I50.9 - Heart failure, unspecified Status: Acute Assessment and Plan: * as suspected based on history and presentation - acute on chronic diastolic heart failure * IV diuresis * follow daily weights, I/Os, and respiratory status * suspect precipitated by #1 and previous IVF resuscitation (5) Hypertension: Code(s): I10 - Essential (primary) hypertension Status: Chronic Assessment and Plan: * reasonable control at this time * follow trend of hemodynamics (6) Anemia: Code(s): D64.9 - Anemia, unspecified Status: Chronic Assessment and Plan: * related to known CKD * follows with Dr. Casillas for Aranesp injections * follow trend of H/H * Epogen while hospitalized (7) Insulin dependent diabetes mellitus: Status: Chronic Assessment and Plan: * follow accuchecks * glycemic control per hospitalists Will continue to follow. Subjective Date/time seen: 03/21/23 14:07 Interval history: Follow-up for acute kidney injury/acute renal failure on chronic kidney disease. She appears to being relatively well at the time of my visit; no apparent distress noted; slow improvement in renal function noted in spite of IV diuretic therapy; no complaints of shortness of breath voiced. Exam Narrative: General: elderly but WD/WN AA female in NAD Heart: normal S1 and S2; no rub Lungs: clear anteriorly; decreased at bases Abdomen: soft, nontender, nondistended, positive bowel sounds Extremities: no cyanosis or clubbing; trace edema Skin: warm and dry Objective Data Vital Signs Vital Signs: Vital Signs Temp Pulse Resp BP Pulse Ox O2 Del Method 03/21/23 14:00 98.3 F 7
[2023-03-21 17:17] LABS: Glucose Point of Care 134 mg/dl (65-105)
[2023-03-21] MEDS: amLODIPine BESYLATE 5 MG TABLET 10 MG PO (21:18)
[2023-03-21] MEDS: calcitrioL 0.25 MCG CAPSULE PO (21:18)
[2023-03-21] MEDS: hydrOXYzine HCL 25 MG TABLET PO (21:18)
[2023-03-21] MEDS: allopurinoL 100 MG TABLET PO (21:18)
[2023-03-21 22:26] LABS: Glucose Point of Care 168 mg/dl (65-105)
[2023-03-22 05:07] LABS: Basophils Absolute Auto 0.1 K/mm3 (0.0-0.1); Basophils Percent Auto 0.6 % (0.2-1.2); Eosinophils Absolute Auto 0.4 K/mm3 (0-0.3); Eosinophils Percent Auto 3.9 % (0-4.4); Hematocrit 25.9 % (37.0-47.0); Hemoglobin 8.4 g/dL (12.0-15.0); Immature Granulocyte Absolute 0.14 K/mm3 (0.00-0.031); Immature Granulocyte Percent A 1.4 % (0-0.5); Lymphocytes Absolute Auto 1.39 K/mm3 (0.9-3.2); Lymphocytes Percent Auto 13.7 % (18.3-44.2); Mean Corpuscular HGB Conc 32.4 g/dl (32-36); Mean Corpuscular Hemoglobin 31.1 pg (26-34); Mean Corpuscular Volume 95.9 fl (80-100); Mean Platelet Volume 9.6 fl (7.4-10.4); Monocytes Absolute Auto 1.2 K/mm3 (0.1-0.6); Monocytes Percent Auto 12.2 % (2.6-8.5); Neutrophils Absolute Auto 6.9 K/mm3 (1.3-6.7); Neutrophils Percent Auto 68.2 % (45.5-73.1); Platelet Count Result 338 k/mm3 (150-375); White Blood Count 10.1 K/mm3 (4.5-10.0)
[2023-03-22 05:19] LABS: Albumin Level 3.3 g/dL (3.5-5.1); Anion Gap 3 mmol/L (8-16); Blood Urea Nitrogen 44 mg/dL (7-17); Calcium 9.1 mg/dL (8.4-10.2); Carbon Dioxide 36 mmol/L (22-30); Chloride 103 mmol/L (98-107); Estimated CRCL calculation 12 ml/min; Estimated Glomerular Filt Rate 17; Glucose 148 mg/dL (65-110); Phosphorus 3.5 mg/dL (2.5-4.5); Potassium 3.8 mmol/L (3.4-5.0); Sodium 142 mmol/L (137-145)
[2023-03-22 06:58] VITALS: BP 120/49; PULSE 78; RESP 21; TEMP 36.8; O2SAT 100
[2023-03-22 08:34] LABS: Glucose Point of Care 130 mg/dl (65-105)
[2023-03-22 08:43] VITALS: PULSE 73
[2023-03-22] MEDS: EMPAGLIFLOZIN 25 MG TABLET PO (08:43)
[2023-03-22] MEDS: FERROUS SULFATE 324 MG TABLET PO ×2 (08:43→17:26)
[2023-03-22] MEDS: carvediloL 6.25 MG TABLET PO ×2 (08:43→20:32)
[2023-03-22] MEDS: APIXABAN 2.5 MG TABLET PO ×2 (08:43→20:31)
[2023-03-22] MEDS: ROSUVASTATIN 10 MG TABLET 40 MG PO (08:45)
[2023-03-22] MEDS: OPTI-GEN TAB 1 TABLET PO (08:45)
--- NOTE | 2023-03-22 11:54 | PM.IMPN ---
Progress Note: A&P Assessment and Plan (1) Acute respiratory failure with hypoxia: Code(s): J96.01 - Acute respiratory failure with hypoxia Status: Acute Assessment and Plan: PAtient recently admitted with acute kidney injury managed with supportive care and liberal fluid rescussitation, which was necessary to salvage her kidney function. This may have complicated volume status overall. Echo showing EF of 65-70% with grade 1 diastolic dysfunction. She is basal inferior wall and basal inferior septal wall hypokinesis and moderate pulmonary hypertension with a PASP of 53. Treated with IV Lasix. Lungs are clear. She was able to come off oxygen. Continue to follow. Stop lasix. (2) Congestive heart failure: Code(s): I50.9 - Heart failure, unspecified Status: Acute Assessment and Plan: Echo as mentioned above. Suspect her respiratory failure from acute on chronic diastolic CHF. She is already on empaglifloxin. Currently on IV Lasix. Renal function worse today. Continue to follow. Stop Laisx (3) Acute on chronic kidney failure: Code(s): N17.9 - Acute kidney failure, unspecified; N18.9 - Chronic kidney disease, unspecified Status: Acute Assessment and Plan: Baseline creatinine this year is 2.3-2.9 range.? Creatinine peaked at 4.[address] scan did show right obstructing renal stone with hydronephrosis last admission that contributed to her renal failure (bilateral stents placed 03/13).?Cr was 3.6 at discharge. Cr still elevated but better on this admission at 3.5. Cr was trending down but worse today. Related to over-diuresis? Follow. Appreciate nephrology input. Lasix stopped. Home when okat with nephrology (4) Anemia in chronic kidney disease: Code(s): N18.9 - Chronic kidney disease, unspecified; D63.1 - Anemia in chronic kidney disease Status: Chronic Assessment and Plan: Hgb mostly in the 8 range last admission and unchanged this admission. Continue EPO. (5) Hyperlipidemia: Code(s): E78.5 - Hyperlipidemia, unspecified Status: Acute Assessment and Plan: LFTs okay. Continue Crestor (6) Hypertension: Code(s): I10 - Essential (primary) hypertension Status: Chronic Assessment and Plan: Patient's blood pressure was reviewed on 03/22 Blood pressure remains reasonably well controlled. Will continue to monitor (7) Atrial fibrillation and flutter: Code(s): I48.91 - Unspecified atrial fibrillation; I48.92 - Unspecified atrial flutter Status: Acute Assessment and Plan: EKG showing normal sinus. Continue carvedilol. Continue chronic anticoagulation with renally dosed Eliquis. (8) Insulin dependent diabetes mellitus: Status: Chronic Assessment and Plan: Patient previously insulin dependent; recent A1c of 5.6 may herald worsening renal function. Glucose remains well controlled. Currently patient on Jardiance. Subjective Date/time seen: 03/22/23 11:54 Interval history: 78yo female with HTN, CHF, CKD, DM and AFib here for shortness of breath. Patient slept okay last night. No chest pain or shortness of breath. Slight dyspnea on exertion. Mild nausea this morning but no vomiting. Eating normally. Exam Narrative: AF 98.2 120/49 73 21 100% ra Gen - NARD Chest - CTA bilaterally, nml RR CV - RRR S1/S2 Abd - Soft, NT/ND, Positive BS Ext - no pedal edema Psych - Nml mood and affect Skin - Warm and dry Objective Data Vital Signs Vital Signs: Vital Signs - 24 hr 03/21/23 14:00 03/21/23 21:18 03/21/23 22:29 Temperature 98.3 F 97.5 F L Pulse Rate 78 88 73 Respiratory Rate 20 16 Blood Pressure 139/56 L 129/44 L Pulse Oximetry 96 94 Oxygen Delivery 03/21/23 20:00 03/22/23 06:58 03/22/23 08:43 Temperature 98.2 F Pulse Rate 73 78 73 Respiratory Rate 16 21 H Blood Pressure 120/49 L Pulse Oximetry 94 100 Oxyge
[2023-03-22 12:19] LABS: Glucose Point of Care 141 mg/dl (65-105)
--- NOTE | 2023-03-22 13:49 | P.PNNP_ITS ---
Progress Note: A&P Assessment and Plan (1) GARRISON (acute kidney injury): Code(s): N17.9 - Acute kidney failure, unspecified Status: Acute Assessment and Plan: * as noted on last hospitalization * multifactorial etiology: * previous obstruction/hydronephrosis * prerenal factors (nausea + vomiting + diarrhea) * use of diuretics + ARB prior that hospitalization * infection (UA suggestive; operative note reviewed) * evaluation to date on last hospital stay: * CT of abdomen on admission with multiple small distal right ureteral stones, largest measuring 3 mm, with mild right hydronephrosis * urine electrolytes prerenal * significant proteinuria * urine eosinophils negative * CPK mildly elevated but not enough to affect kidney function * renal function a tad worse * hold ARB * hold diuretics today * consider switching back to oral lasix (40mg qday starting tomorrow) * follow trend of UOP and repeat labs (2) Chronic kidney disease, stage 4 (severe): Code(s): N18.4 - Chronic kidney disease, stage 4 (severe) Status: Chronic Assessment and Plan: * preasent at least as far back as 2021 if not longer * baseline creatinine seems to run around 1.9 - 2.5mg/dl (although has been as high as 2.9mg/dl) * presumably secondary to hypertension, diabetes, vascular disease and age- related change * follows with Dr. Misha Wiseman for CKD management (3) Acute respiratory failure with hypoxia: Code(s): J96.01 - Acute respiratory failure with hypoxia Status: Acute Assessment and Plan: * seems to be secondary to CHF exacerbation * however, clinically better at this time * follow respiratory status (4) Congestive heart failure: Code(s): I50.9 - Heart failure, unspecified Status: Acute Assessment and Plan: * as suspected based on history and presentation - acute on chronic diastolic heart failure * IV diuresis - on hold currently * follow daily weights, I/Os, and respiratory status * suspect precipitated by #1 and previous IVF resuscitation (5) Hypertension: Code(s): I10 - Essential (primary) hypertension Status: Chronic Assessment and Plan: * reasonable control at this time * follow trend of hemodynamics (6) Anemia: Code(s): D64.9 - Anemia, unspecified Status: Chronic Assessment and Plan: * related to known CKD * follows with Dr. Sonja for Aranesp injections * follow trend of H/H * Epogen while hospitalized (7) Insulin dependent diabetes mellitus: Status: Chronic Assessment and Plan: * follow accuchecks * glycemic control per hospitalists Will continue to follow. Subjective Date/time seen: 03/22/23 13:49 Interval history: Follow-up for acute kidney injury/acute renal failure on chronic kidney disease. Overall, seems to be slowly improving; no shortness of breath voiced aside from some exertional activity (remains on room air); creatinine a bit worse by AM labs and given concerns for overdiuresis, IV diuretics currently on hold; no other issues voiced to report at this time. Exam Narrative: General: elderly but WD/WN AA female in NAD Heart: normal S1 and S2; no rub Lungs: clear anteriorly; decreased at bases Abdomen: soft, nontender, nondistended, positive bowel sounds Extremities: no cyanosis or clubbing; trace edema Skin: warm and intact Objective Data Vital Signs Vital Signs:
--- NOTE | 2023-03-22 13:49 | PM.PNNEP ---
Progress Note: A&P Assessment and Plan (1) GARRISON (acute kidney injury): Code(s): N17.9 - Acute kidney failure, unspecified Status: Acute Assessment and Plan: as noted on last hospitalization multifactorial etiology: previous obstruction/hydronephrosis prerenal factors (nausea + vomiting + diarrhea) use of diuretics + ARB prior that hospitalization infection (UA suggestive; operative note reviewed) evaluation to date on last hospital stay: CT of abdomen on admission with multiple small distal right ureteral stones, largest measuring 3 mm, with mild right hydronephrosis urine electrolytes prerenal significant proteinuria urine eosinophils negative CPK mildly elevated but not enough to affect kidney function renal function a tad worse hold ARB hold diuretics today consider switching back to oral lasix (40mg qday starting tomorrow) follow trend of UOP and repeat labs (2) Chronic kidney disease, stage 4 (severe): Code(s): N18.4 - Chronic kidney disease, stage 4 (severe) Status: Chronic Assessment and Plan: preasent at least as far back as 2021 if not longer baseline creatinine seems to run around 1.9 - 2.5mg/dl (although has been as high as 2.9mg/dl) presumably secondary to hypertension, diabetes, vascular disease and age-related change follows with Dr. Misha Wiseman for CKD management (3) Acute respiratory failure with hypoxia: Code(s): J96.01 - Acute respiratory failure with hypoxia Status: Acute Assessment and Plan: seems to be secondary to CHF exacerbation however, clinically better at this time follow respiratory status (4) Congestive heart failure: Code(s): I50.9 - Heart failure, unspecified Status: Acute Assessment and Plan: as suspected based on history and presentation - acute on chronic diastolic heart failure IV diuresis - on hold currently follow daily weights, I/Os, and respiratory status suspect precipitated by #1 and previous IVF resuscitation (5) Hypertension: Code(s): I10 - Essential (primary) hypertension Status: Chronic Assessment and Plan: reasonable control at this time follow trend of hemodynamics (6) Anemia: Code(s): D64.9 - Anemia, unspecified Status: Chronic Assessment and Plan: related to known CKD follows with Dr. Casillas for Aranesp injections follow trend of H/H Epogen while hospitalized (7) Insulin dependent diabetes mellitus: Status: Chronic Assessment and Plan: follow accuchecks glycemic control per hospitalists Will continue to follow. Subjective Date/time seen: 03/22/23 13:49 Interval history: Follow-up for acute kidney injury/acute renal failure on chronic kidney disease. Overall, seems to be slowly improving; no shortness of breath voiced aside from some exertional activity (remains on room air); creatinine a bit worse by AM labs and given concerns for overdiuresis, IV diuretics currently on hold; no other issues voiced to report at this time. Exam Narrative: General: elderly but WD/WN AA female in NAD Heart: normal S1 and S2; no rub Lungs: clear anteriorly; decreased at bases Abdomen: soft, nontender, nondistended, positive bowel sounds Extremities: no cyanosis or clubbing; trace edema Skin: warm and intact Objective Data Vital Signs Vital Signs: Vital Signs Temp Pulse Resp BP Pulse Ox O2 Del Method 03/22/23 13:00 98.1 F 73 20 127/54 L 93 03/22/23 08:43 73 03/22/23 06:58 98.2 F 78 21 H 120/49 L 100 03/21/23 20:00 73 16 94 Room Air 03/21/23 22:29 97.5 F L 73 16 129/44 L 94 03/21/23 21:18 88 Intake/Output Intake/Output: Intake & Output 03/19/23 03/20/23 03/21/23 03/22/23 23:59 23:59 23:59 23:59 Intake Total 1930 1505 1270 1220 Output Total 975 1800 200 Balance 955 1505 -530 1020 Meds/Results Medications: Active
[2023-03-22 14:00] VITALS: BP 127/54; PULSE 73; RESP 20; TEMP 36.7; O2SAT 93
[2023-03-22 16:58] LABS: Glucose Point of Care 128 mg/dl (65-105)
[2023-03-22 20:24] VITALS: BP 131/59; PULSE 75; RESP 18; TEMP 37.3; O2SAT 98
[2023-03-22] MEDS: calcitrioL 0.25 MCG CAPSULE PO (20:31)
[2023-03-22] MEDS: allopurinoL 100 MG TABLET PO (20:31)
[2023-03-22] MEDS: hydrOXYzine HCL 25 MG TABLET PO (20:31)
[2023-03-22 20:32] VITALS: PULSE 75
[2023-03-22] MEDS: amLODIPine BESYLATE 5 MG TABLET 10 MG PO (20:32)
[2023-03-22 20:42] LABS: Glucose Point of Care 269 mg/dl (65-105)
[2023-03-23 05:16] LABS: Basophils Absolute Auto 0.1 K/mm3 (0.0-0.1); Basophils Percent Auto 0.6 % (0.2-1.2); Eosinophils Absolute Auto 0.4 K/mm3 (0-0.3); Eosinophils Percent Auto 3.3 % (0-4.4); Hematocrit 26.3 % (37.0-47.0); Hemoglobin 8.5 g/dL (12.0-15.0); Immature Granulocyte Absolute 0.18 K/mm3 (0.00-0.031); Immature Granulocyte Percent A 1.6 % (0-0.5); Lymphocytes Absolute Auto 1.59 K/mm3 (0.9-3.2); Lymphocytes Percent Auto 14.1 % (18.3-44.2); Mean Corpuscular HGB Conc 32.3 g/dl (32-36); Mean Platelet Volume 9.3 fl (7.4-10.4); Monocytes Absolute Auto 1.3 K/mm3 (0.1-0.6); Monocytes Percent Auto 11.2 % (2.6-8.5); Neutrophils Absolute Auto 7.8 K/mm3 (1.3-6.7); Neutrophils Percent Auto 69.2 % (45.5-73.1); Platelet Count Result 321 k/mm3 (150-375); Red Blood Count 2.74 M/mm3 (4.2-5.4); Red Cell Distribution Width 14.8 % (11.5-14.5); White Blood Count 11.3 K/mm3 (4.5-10.0)
[2023-03-23 05:20] VITALS: BP 125/59; PULSE 76; RESP 18; TEMP 36.6; O2SAT 99
[2023-03-23 05:27] LABS: Albumin Level 3.2 g/dL (3.5-5.1); Anion Gap 3 mmol/L (8-16); Blood Urea Nitrogen 46 mg/dL (7-17); Calcium 8.9 mg/dL (8.4-10.2); Carbon Dioxide 33 mmol/L (22-30); Chloride 103 mmol/L (98-107); Estimated CRCL calculation 11 ml/min; Estimated Glomerular Filt Rate 18; Glucose 117 mg/dL (65-110); Phosphorus 3.3 mg/dL (2.5-4.5); Potassium 3.6 mmol/L (3.4-5.0); Sodium 139 mmol/L (137-145)
[2023-03-23] MEDS: OPTI-GEN TAB 1 TABLET PO (08:40)
[2023-03-23] MEDS: APIXABAN 2.5 MG TABLET PO (08:40)
[2023-03-23] MEDS: FERROUS SULFATE 324 MG TABLET PO ×2 (08:40→17:24)
[2023-03-23 08:41] VITALS: PULSE 91
[2023-03-23] MEDS: carvediloL 6.25 MG TABLET PO (08:41)
[2023-03-23] MEDS: EMPAGLIFLOZIN 25 MG TABLET PO (08:41)
[2023-03-23] MEDS: ROSUVASTATIN 10 MG TABLET 40 MG PO (08:41)
[2023-03-23 08:42] LABS: Glucose Point of Care 102 mg/dl (65-105)
[2023-03-23] MEDS: EPOETIN ALFA-EPBX 10,000 UNITS/ML VIAL 10000 UNITS SUB-Q (08:42)
[2023-03-23 11:59] LABS: Glucose Point of Care 161 mg/dl (65-105)
--- NOTE | 2023-03-23 12:37 | P.PNNP_ITS ---
Progress Note: A&P Assessment and Plan (1) GARRISON (acute kidney injury): Code(s): N17.9 - Acute kidney failure, unspecified Status: Acute Assessment and Plan: * as noted on last hospitalization * multifactorial etiology: * previous obstruction/hydronephrosis * prerenal factors (nausea + vomiting + diarrhea) * use of diuretics + ARB prior that hospitalization * infection (UA suggestive; operative note reviewed) * evaluation to date on last hospital stay: * CT of abdomen on admission with multiple small distal right ureteral stones, largest measuring 3 mm, with mild right hydronephrosis * urine electrolytes prerenal * significant proteinuria * urine eosinophils negative * CPK mildly elevated but not enough to affect kidney function * renal function a bit better * holding ARB * hold diuretics * consider switching back to oral lasix (40mg qday) in a few days * follow trend of UOP and repeat labs (2) Chronic kidney disease, stage 4 (severe): Code(s): N18.4 - Chronic kidney disease, stage 4 (severe) Status: Chronic Assessment and Plan: * preasent at least as far back as 2021 if not longer * baseline creatinine seems to run around 1.9 - 2.5mg/dl (although has been as high as 2.9mg/dl) * presumably secondary to hypertension, diabetes, vascular disease and age- related change * follows with Dr. Misha Wiseman for CKD management (3) Acute respiratory failure with hypoxia: Code(s): J96.01 - Acute respiratory failure with hypoxia Status: Acute Assessment and Plan: * seems to be secondary to CHF exacerbation * however, clinically better at this time * follow respiratory status (4) Congestive heart failure: Code(s): I50.9 - Heart failure, unspecified Status: Acute Assessment and Plan: * as suspected based on history and presentation - acute on chronic diastolic heart failure * IV diuresis - on hold currently * follow daily weights, I/Os, and respiratory status * suspect precipitated by #1 and previous IVF resuscitation (5) Hypertension: Code(s): I10 - Essential (primary) hypertension Status: Chronic Assessment and Plan: * reasonable control at this time * follow trend of hemodynamics (6) Anemia: Code(s): D64.9 - Anemia, unspecified Status: Chronic Assessment and Plan: * related to known CKD * follows with Dr. Sonja for Aranesp injections * follow trend of H/H * Epogen while hospitalized (7) Insulin dependent diabetes mellitus: Status: Chronic Assessment and Plan: * follow accuchecks * glycemic control per hospitalists Not opposed to discharge from renal perspective if otherwise medically stable; recommend renal function panel in a week and resume oral lasix (home dose) in a couple of days following discharge. Will continue to follow. Subjective Date/time seen: 03/23/23 12:37 Interval history: Follow-up for acute kidney injury/acute renal failure on chronic kidney disease. Creatinine a bit better today by AM labs with holding diuretics/diuresis; breathing/respiratory status seems stable if not better at this time; no apparent distress voiced; no issues overnight or earlier this morning; no other acute complaints voiced. Exam Narrative: General: elderly but WD/WN AA female in NAD Heart: normal S1 and S2; no rub Lungs: clear anteriorly; decreased at bases Abdomen: soft, nontender, nondistended, positive bowel sounds
--- NOTE | 2023-03-23 12:37 | PM.PNNEP ---
Progress Note: A&P Assessment and Plan (1) GARRISON (acute kidney injury): Code(s): N17.9 - Acute kidney failure, unspecified Status: Acute Assessment and Plan: as noted on last hospitalization multifactorial etiology: previous obstruction/hydronephrosis prerenal factors (nausea + vomiting + diarrhea) use of diuretics + ARB prior that hospitalization infection (UA suggestive; operative note reviewed) evaluation to date on last hospital stay: CT of abdomen on admission with multiple small distal right ureteral stones, largest measuring 3 mm, with mild right hydronephrosis urine electrolytes prerenal significant proteinuria urine eosinophils negative CPK mildly elevated but not enough to affect kidney function renal function a bit better holding ARB hold diuretics consider switching back to oral lasix (40mg qday) in a few days follow trend of UOP and repeat labs (2) Chronic kidney disease, stage 4 (severe): Code(s): N18.4 - Chronic kidney disease, stage 4 (severe) Status: Chronic Assessment and Plan: preasent at least as far back as 2021 if not longer baseline creatinine seems to run around 1.9 - 2.5mg/dl (although has been as high as 2.9mg/dl) presumably secondary to hypertension, diabetes, vascular disease and age-related change follows with Dr. Misha Wiseman for CKD management (3) Acute respiratory failure with hypoxia: Code(s): J96.01 - Acute respiratory failure with hypoxia Status: Acute Assessment and Plan: seems to be secondary to CHF exacerbation however, clinically better at this time follow respiratory status (4) Congestive heart failure: Code(s): I50.9 - Heart failure, unspecified Status: Acute Assessment and Plan: as suspected based on history and presentation - acute on chronic diastolic heart failure IV diuresis - on hold currently follow daily weights, I/Os, and respiratory status suspect precipitated by #1 and previous IVF resuscitation (5) Hypertension: Code(s): I10 - Essential (primary) hypertension Status: Chronic Assessment and Plan: reasonable control at this time follow trend of hemodynamics (6) Anemia: Code(s): D64.9 - Anemia, unspecified Status: Chronic Assessment and Plan: related to known CKD follows with Dr. Casillas for Aranesp injections follow trend of H/H Epogen while hospitalized (7) Insulin dependent diabetes mellitus: Status: Chronic Assessment and Plan: follow accuchecks glycemic control per hospitalists Not opposed to discharge from renal perspective if otherwise medically stable; recommend renal function panel in a week and resume oral lasix (home dose) in a couple of days following discharge. Will continue to follow. Subjective Date/time seen: 03/23/23 12:37 Interval history: Follow-up for acute kidney injury/acute renal failure on chronic kidney disease. Creatinine a bit better today by AM labs with holding diuretics/diuresis; breathing/respiratory status seems stable if not better at this time; no apparent distress voiced; no issues overnight or earlier this morning; no other acute complaints voiced. Exam Narrative: General: elderly but WD/WN AA female in NAD Heart: normal S1 and S2; no rub Lungs: clear anteriorly; decreased at bases Abdomen: soft, nontender, nondistended, positive bowel sounds Extremities: no cyanosis or clubbing; trace edema Skin: no rash Objective Data Vital Signs Vital Signs: Vital Signs Temp Pulse Resp BP Pulse Ox O2 Del Method 03/23/23 12:28 99.3 F 81 16 127/48 L 99 03/23/23 08:41 91 03/23/23 05:20 98 F 76 18 125/59 L 99 03/22/23 20:00 Room Air 03/22/23 20:32 75 03/22/23 20:24 99.1 F 75 18 131/59 L 98 Intake/Output Intake/Output: Intake & Output 03/20/23 03/21/23 03/22/23 03/23/23 23:59 23:59
--- NOTE | 2023-03-23 13:21 | PCCCNOTE ---
On 03/23/23, the student, [Iesha Peng ], provided care and completed [facility] documentation on this patient. I have reviewed the student's documentation and agree with the findings.
[2023-03-23 13:38] LABS: Troponin I 0.039 ng/mL (0.000-0.034)
[2023-03-23 14:28] VITALS: BP 127/48; PULSE 81; RESP 16; TEMP 37.4; O2SAT 99
--- NOTE | 2023-03-23 15:57 | PM.DS ---
DS: Admitting Diagnosis Discharge Date 03/23/23 Admitting Diagnosis Shortness of breath DS: Discharge Diagnosis Discharge Diagnosis (1) Acute respiratory failure with hypoxia: Code(s): J96.01 - Acute respiratory failure with hypoxia Status: Acute (2) Congestive heart failure: Code(s): I50.9 - Heart failure, unspecified Status: Acute (3) Acute on chronic kidney failure: Code(s): N17.9 - Acute kidney failure, unspecified; N18.9 - Chronic kidney disease, unspecified Status: Acute (4) Anemia in chronic kidney disease: Code(s): N18.9 - Chronic kidney disease, unspecified; D63.1 - Anemia in chronic kidney disease Status: Chronic (5) Hyperlipidemia: Code(s): E78.5 - Hyperlipidemia, unspecified Status: Acute (6) Hypertension: Code(s): I10 - Essential (primary) hypertension Status: Chronic (7) Atrial fibrillation and flutter: Code(s): I48.91 - Unspecified atrial fibrillation; I48.92 - Unspecified atrial flutter Status: Acute (8) Insulin dependent diabetes mellitus: Status: Chronic DS: Summary Hospital Course Reason for hospitalization: 78yo female with HTN, CHF, CKD, DM and AFib here for shortness of breath. Please see H&P for details. Hospital Course: Patient recently admitted with acute kidney injury managed with supportive care and liberal fluid resuscitation.? This may have complicated volume status overall.? Echo showing EF of 65-70% with grade 1 diastolic dysfunction and basal inferior wall and basal inferior septal wall hypokinesis and moderate pulmonary hypertension with a PASP of 53. She was treated with IV Lasix.? Fluid status improved and she was able to come off oxygen.? Suspect her respiratory failure from acute on chronic diastolic CHF.? We continued her empagliflozin.? She also had acute on chronic kidney failure. Baseline creatinine this year was 2.3-2.9 range.? Creatinine peaked at 4.[address] scan did show right obstructing renal stone with hydronephrosis last admission that contributed to her renal failure (bilateral stents placed 03/13).?Cr was 3.6 at last discharge. Cr was 3.5 this admission. Cr has trended down to 3.0. Hgb mostly in the 8 range last admission and unchanged this admission. We continued EPO. Nephrology was consulted and followed along. Appreciate Nephrology input. Discussed with Nephrology felt patient could be discharged home. He recommended resuming patient's Lasix in a few days. Patient to follow-up with her felt washing machine tender in 1 week. Patient overall did well and was able to be discharged home on 03/23/2023. Status at Discharge Cognitive/behavioral status at discharge: stable Time Spent with Patient Time attestation: Total time spent providing and/or coordinating discharge services: 35 minutes Time spent: Greater than 30 minutes Exam Narrative: AF 99.3 127/48 81 16 99% ra Gen - NARD Chest - CTA bilaterally, nml RR CV - RRR S1/S2 Abd - Soft, NT/ND, Positive BS Ext - no pedal edema Psych - Nml mood and affect Skin - Warm and dry DS: Data Data Completed and Pending Labs on day of discharge: Labs from last 24 hours 03/23/23 03/23/23 03/23/23 11:55 08:38 05:07 WBC 11.3 H RBC 2.74 L Hgb 8.5 L Hct 26.3 L MCV 96.0 MCH 31.0 MCHC 32.3 RDW 14.8 H Plt Count 321 MPV 9.3 Immature Gran % (Auto) 1.6 H Neut % (Auto) 69.2 Lymph % (Auto) 14.1 L Schuyler % (Auto) 11.2 H Eos % (Auto) 3.3 Baso % (Auto) 0.6 Lymph # (Auto) 1.59 Schuyler # (Auto) 1.3 H Eos # (Auto) 0.4 H Baso # (Auto) 0.1 Abs Immat Gran (auto) 0.18 H Absolute Neuts (auto) 7.8 H Absolute Nucleated RBC 0.0 Nucleated RBC % 0.0 Sodium 139 Potassium 3.6 Chloride 103 Carbon Dioxide 33 H Anion Gap 3 L BUN 46 H Creatinine 3.00 H Estim Creat Clear Calc 11 Estimated GFR 18 L Glucose 117 H POC Capillar
[2023-03-23 17:07] LABS: Glucose Point of Care 160 mg/dl (65-105)
== END 2023-03-23 17:57 | disposition home or self-care (01) | DRG 291 ==
LOC: ANHED 19:36 → ANHIMU 21:18 → ANH2MED 03-20 14:37
PROVIDERS: Internal Medicine Nephrology; Admitting Provider Chiropractor; Emergency Provider General Practice; PCP Internal Medicine; Visit Provider Internal Medicine
DX: I13.0 Hypertensive heart and chronic kidney disease with heart failure and stage 1 through stage 4 chronic kidney disease, or unspecified chronic kidney disease (principal); I50.33 Acute on chronic diastolic (congestive) heart failure; J96.01 Acute respiratory failure with hypoxia; N18.4 Chronic kidney disease, stage 4 (severe); I48.92 Unspecified atrial flutter; I48.20 Chronic atrial fibrillation, unspecified; N17.9 Acute kidney failure, unspecified; N13.2 Hydronephrosis with renal and ureteral calculous obstruction; E11.22 Type 2 diabetes mellitus with diabetic chronic kidney disease; E78.5 Hyperlipidemia, unspecified; D63.1 Anemia in chronic kidney disease; H40.9 Unspecified glaucoma; H91.8X3 Other specified hearing loss, bilateral; Z20.822 Contact with and (suspected) exposure to COVID-19; Z79.01 Long term (current) use of anticoagulants; Z79.4 Long term (current) use of insulin; Z85.3 Personal history of malignant neoplasm of breast
CPT/HCPCS: 36415; 36600; 71045; 80048; 80053; 80069; 82375; 82805; 82948; 83050; 83605; 83880; 84484; 85025; 85610; 85730; 87040; 87635; 93005; 93306; 96374; 96375; 96376; 99285; A9270; G0378; J1940; Q5105

== ENCOUNTER 2023-03-27 04:26 | Day surgery (SDC) | payer MEDICARE, SELFPAY ==
[2023-03-26 13:06] VITALS: BMI 26.6
--- NOTE | 2023-03-26 13:33 | PC.NURSE ---
Report to the Outpatient Waiting Room, entrance under the green pavilion located off [facility], at time __12:00PM on date __03/27/23/ . Planned Procedure Time: __2:00PM . Time changes happen often and if your time is changed the preop area will call you the afternoon before. - You and your visitor will be asked to self-screen and do not enter if you have any COVID symptoms. - A mask is optional within the hospital at this time. Patients may have clear liquids (water, carbonated beverages, clear teas, apple juice) until 3 hours prior to surgery with a maximum of 20 ounces. - No food from midnight until time of surgery Take the following medications with a SIP of water the morning of surgery: ___CARVEDILOL DO NOT STOP ANY OF YOUR OTHER PRESCRIPTION MEDICATIONS PRIOR TO SURGERY ?EXCEPT THE FOLLOWING Medications to discontinue per physician ___HOLD ALL VITAMINS/SUPPLEMENTS STARTING NOW. ELIQUIS HAS BEEN ON HOLD SINCE HOSPITALIZATION 03/17/23. INSULIN AND LOSARTAN HAVE BEEN ON HOLD SINCE DURING HOSPITALIZATION (03/17/23) ALSO. Please no make-up, nail divehi, hairspray, perfume, deodorant, or body powder the day of surgery. No jewelry (including any body piercings) or valuables the day of surgery, leave them at home. Please take a shower or bath the night before, or the morning of, surgery with an antibacterial soap. Wear comfortable, loose fitting clothing. Children are encouraged to wear pajamas. - Jewelry must be removed prior to entering the operating room. Rings and piercings that are not removed may be cut off. - The hospital will not accept responsibility for valuables. - Please leave all valuables, including medications, at home the day of surgery. If you are going home after surgery, a licensed customer service driver must drive you home. - NO public transportation without another adult if you receive anesthesia. - We recommend that an adult stay with you for 24 hours following discharge. - We also recommend that you do not drive, make important decision, drink alcoholic beverages, or take any drugs that were not prescribed by your health care provider for at least 24 hours after your discharge time. Follow any additional instructions given to you from your surgeon. If you or anyone in your household have experienced Covid symptoms in the past week, please notify your surgeon or the nurse liaison at the phone number below for possible testing. Telephone instructions given to __DAUGHTER and asked if any additional questions and then verbalized understanding. Patient advised to call surgeon office or pre surgery nurse liaison [phone] if any additional questions.
[2023-03-27] VITALS (10 sets, daily range): BP systolic 154–170; BP diastolic 60–74; PULSE 74–80; RESP 12–19; TEMP 36.5–37.2; O2SAT 93–100
--- NOTE | ~2023-03-27 | XR_ITS ---
EXAMINATION: XR retrograde pyelo w/stent BI DATE: 03/27/2023 13:03 INDICATION: Bilateral intraureteral stent exchange and retrograde pyelograms. TECHNIQUE: 11 fluoroscopic images of the abdomen and pelvis were obtained during procedure performed by Dr. Lau. Radiologist was not present for the imaging or procedure. The amount of fluoroscopy time used during this procedure was 0.2 minutes. COMPARISON: 03/15/2023 FINDINGS: Unchanged position of a pair of bilateral intraureteral stents which are in expected position. Subseq uent images demonstrate advancement of catheters into the bilateral ureters. Retrograde injection of contrast demonstrates accumulation of contrast at the upper pole of the left kidney with an atypical configuration which could represent either distortion of a calyx resulting from a large renal cyst or alternatively that the cyst representing a large calyceal diverticulum partially opacified with the injected contrast. The left renal collecting system is unremarkable. Final images demonstrate placeme nt of new bilateral internal ureteral stents with proximal loops formed in the bilateral renal calyce s. IMPRESSION: 1. Fluoroscopy utilized during bilateral internal ureteral stent exchanges. See procedure note for fu rther detail. Reviewed, dictated and finalized at location A. IMPRESSION: 1. Fluoroscopy utilized during bilateral internal ureteral stent exchanges. See procedure note for further detail.
--- NOTE | 2023-03-27 07:54 | WPDANESEPPF ---
Anes - Initial Pre Proc Eval Procedure: Operation Date: 03/27/23 12:00 Proposed Procedures p Cystoscopy, Bilateral Ureteroscopy, Possible Bilateral Retrograde Pyelogram, Possible Bilateral Stone Extraction, Possible Bilateral Stent Placement, Possible Holmium Laser Procedure - Terry Lau MD Date/Time: 03/27/23 07:54 Surgeon: Terry Lau MD Pre Op Diagnosis: ureteral stones Patient Data Age: 78 Gender: F Height: 1.57 m Weight: 66 kg Allergies Allergy/AdvReac Type Severity Reaction Status Date / Time No Known Allergies Allergy Verified 03/26/23 12:54 Home Medications Medication Instructions Recorded Confirmed Type allopurinol 100 mg tablet 100 mg PO HS 09/12/21 03/26/23 History amlodipine 10 mg tablet 10 mg PO HS 09/12/21 03/26/23 History calcitriol 0.25 mcg capsule 0.25 mcg PO HS 09/12/21 03/26/23 History carvedilol 25 mg tablet 25 mg PO Q12H 09/12/21 03/26/23 History furosemide 40 mg tablet 40 mg PO QAM PRN Edema 09/12/21 03/26/23 History losartan 100 mg tablet 100 mg PO DAILY 09/12/21 03/26/23 History rosuvastatin 40 mg tablet 40 mg PO DAILY 09/12/21 03/26/23 History Accu-Chek Mariza Plus test strp 03/12/23 03/18/23 History apixaban 2.5 mg tablet (Eliquis) 2.5 mg PO BID 03/12/23 03/26/23 History empagliflozin 25 mg tablet 25 mg PO DAILY 03/12/23 03/26/23 History (Jardiance) ergocalciferol (vitamin D2) 1,250 1,250 mcg PO [id number] 03/18/23 03/26/23 History mcg (50,000 unit) capsule (Vitamin D2) ferrous sulfate 325 mg (65 mg 325 mg PO BID 03/18/23 03/26/23 History iron) tablet auqoivzengmd-pzaklnyq-hvaafz tablet 1 tablet PO DAILY 03/18/23 03/26/23 History clobetasol 0.05 % scalp solution 1 applic topical DAILY PRN Rash 03/23/23 03/26/23 Rx #25 mL hydrocortisone 2.5 % topical cream 1 applic topical BID PRN Rash #15 03/23/23 03/26/23 Rx grams triamcinolone acetonide 0.1 % 0.1 applic topical BID PRN rash 03/23/23 03/26/23 Rx topical ointment #15 grams ECG: Date of Service: 03/19/23 Procedure(s): CA 12 lead EKG Accession Number(s): [id number] cc: ~ ? Measurements Intervals? [place]? Rate: ? 76 ? P:? 61 KS: ? 168? QRS:? 0 QRSD: ? 91 ? T:? 104 QT: ? 450? QTc:? 508? Interpretive Statements SINUS RHYTHM BORDERLINE ST-T WAVE ABNORMALITY- LAT/HIGH LAT LEADS PROLONGED QT INTERVAL BASELINE WANDER- I, II ABNORMAL ECG COMPARED TO ECG 03/18/2023 17:07:13 NO SIGNIFICANT CHANGES Electronically Signed On 03-19-2023 15:45:25 CDT by Wyatt Pruett D.O. Other studies: Admit Date: ? ? 03/18/2023 Staff Ordering Physician: ? ? Lam Washburn MD Food Order Expediter: ? ? Subha Calle RDCS Attending Provider: ? ? Lam Washburn MD Referring Physician: ? ? Wu GALO; Exam Type: ? ? CA echo doppler color flow Study Info Indications ? ? I50.9 - Heart failure,? unspecified Complete two-dimensional, color flow and Doppler transthoracic echocardiogram is performed. ? Strain analysis performed. Account #: ? ? [id number] Summary ? 1. Complete two-dimensional, color flow and Doppler transthoracic echocardiogram is performed. ? 2. Strain analysis performed. ? 3. Left ventricular chamber dimension is normal. ? 4. Left ventricular systolic function is normal, estimated at 65-70%. ? 5. There is mildly increased left ventricular wall thickness. ? 6. The left ventricular diastolic function is grade I diastolic dysfunction. ? 7. Global longitudinal strain is abnormal at -12 %. ? 8. The basal inferior wall, and basal inferoseptal are hypokinetic. ? 9. Left atrial chamber dimension is mildly enlarged. ? 10. There is mild aortic valve sclerosis. ? 11. There is mild mitral valve regurgitation.
[2023-03-27] MEDS: LACTATED RINGERS 1,000 ML 30 ML IV CONT (10:34)
[2023-03-27 10:37] LABS: Glucose Point of Care 153 mg/dl (65-105)
--- NOTE | 2023-03-27 11:28 | WPDHPUPDATE1 ---
History and Physical Update Update Date/Time: 03/27/23 11:28 History and Physical has been reviewed, including an updated exam of the patient. There are NO changes in the patient's condition. Risks, benefits, and alternatives have been discussed and questions answered. Patient agrees to proceed with procedure. Proceed with cystoscopy, bilateral retrogrades, bilateral ureteroscopy with stone extractions, possible laser, possible stent exchange
--- NOTE | 2023-03-27 11:28 | PM.IMHP ---
H&P: HPI History of Present Illness Date/Time: 03/27/23 11:28 Chief Complaint: Bilateral ureterolithiasis Narrative: 78-year-old female who had bilateral ureteral stents placed 2-3 weeks ago due to sepsis and bilateral stones. She now presents for definitive management. Review of Systems Review of Systems: All systems reviewed & are unremarkable except as noted in HPI and below PMFSH Past Medical History Medical History Anemia in chronic kidney disease Anemia in chronic kidney disease (CKD) Atrial fibrillation and flutter Cancer of left breast (2009) Status post partial mastectomy and chemo radiation. Chronic kidney disease, stage 4 (severe) Congestive heart failure Glaucoma Hyperlipidemia Hypertension Insulin dependent diabetes mellitus Intractable vomiting with nausea Profound hearing loss of both ears Surgical History Surgical History History of cardiac catheterization (2018) History of partial mastectomy of left breast (2009) Family History Family History Other Diabetes mellitus Hypertension Social History Social History Social History: Surrogate medical decision maker: France Piper, daughter. Code status: Full code. Smoking status: Never smoker Second hand tobacco smoke exposure: Yes (SPOUSE) Alcohol intake: never Substance use: never Lack of Transportation: No Lack of Food: Never True Current Housing: I Have Housing Concerned About Future Housing: No Difficulty Paying Gas/Electric Bills: No Difficulty Paying for Meds: No Currently Unemployed: No Education: High School Diploma/GED Difficulty w/ Childcare or Family Care: No Living arrangements: with family Additional living arrangements comments: DAUGHTER Spiritual care concerns: No Meds Home Medications and Allergies Home Medications Medication Instructions Recorded Confirmed Type allopurinol 100 mg tablet 100 mg PO HS 09/12/21 03/26/23 History amlodipine 10 mg tablet 10 mg PO HS 09/12/21 03/26/23 History calcitriol 0.25 mcg capsule 0.25 mcg PO HS 09/12/21 03/26/23 History carvedilol 25 mg tablet 25 mg PO Q12H 09/12/21 03/26/23 History furosemide 40 mg tablet 40 mg PO QAM PRN Edema 09/12/21 03/26/23 History losartan 100 mg tablet 100 mg PO DAILY 09/12/21 03/26/23 History rosuvastatin 40 mg tablet 40 mg PO DAILY 09/12/21 03/26/23 History Accu-Chek Mariza Plus test strp 03/12/23 03/18/23 History apixaban 2.5 mg tablet (Eliquis) 2.5 mg PO BID 03/12/23 03/26/23 History empagliflozin 25 mg tablet 25 mg PO DAILY 03/12/23 03/26/23 History (Jardiance) ergocalciferol (vitamin D2) 1,250 1,250 mcg PO [id number] 03/18/23 03/26/23 History mcg (50,000 unit) capsule (Vitamin D2) ferrous sulfate 325 mg (65 mg 325 mg PO BID 03/18/23 03/26/23 History iron) tablet itehwvlxvzha-yljnraog-editxa tablet 1 tablet PO DAILY 03/18/23 03/26/23 History clobetasol 0.05 % scalp solution 1 applic topical DAILY PRN Rash 03/23/23 03/26/23 Rx #25 mL hydrocortisone 2.5 % topical cream 1 applic topical BID PRN Rash #15 03/23/23 03/26/23 Rx grams triamcinolone acetonide 0.1 % 0.1 applic topical BID PRN rash 03/23/23 03/26/23 Rx topical ointment #15 grams Allergies Allergy/AdvReac Type Severity Reaction Status Date / Time No Known Allergies Allergy Verified 03/26/23 12:54 Vital Signs Vital Signs - 24 hr 03/27/23 10:06 Temperature 36.5 C Pulse Rate 74 Respiratory Rate 18 Blood Pressure 154/65 H Pulse Oximetry 100 Oxygen Delivery Room Air Exam Const: General: cooperative HENMT: Head: normal to inspection Resp: Effort & Inspection: normal respiratory effort Cardio: Rate: regular rate Rhythm: regular rhythm Assessment and Plan Assessment and plan (1)
[2023-03-27] MEDS: ceFAZolin 2 GM/D5W 50 ML 2 GM/50 ML BAG IVPB (11:52)
[2023-03-27] MEDS: LIDOCAINE HCL 2% GEL UROJET 10 ML PKG MUCOUS MEM (12:18)
--- NOTE | 2023-03-27 12:57 | W.PM.PROC2 ---
Procedure Note - Detailed Date of Procedure 03/27/23 Pre-op Diagnosis Bilateral renal/ureteral calculi Post-op Diagnosis Same Procedure Performed Cystoscopy, bilateral retrogrades, bilateral ureteroscopy with stone extraction, bilateral stent exchange 4.8 Malaysian contour stents Surgeon Terry Lau MD Anesthesia General Description of Procedure Patient is taken to the operative suite correctly identified. Once anesthesia was obtained she was placed in dorsal lithotomy position and prepped and draped in sterile fashion. Twenty-two Malaysian scope was inserted the bladder. The right ureteral stent was grasped and brought out the meatus. Guidewire was inserted. A rigid ureteral scope was then inserted into the distal ureter. There were no ureteral stones visualized. Ureteral access sheath was then placed in a mini flexible scope was inserted into the kidney. Patient has probably 15-20 tiny little stone fragments present. They are all very smooth. The majority of these are too small to grasp. We tried to flush these out with the saline. Some of the larger stones were retrieved and sent for analysis. Pyelogram was then performed to confirm placement of the stent. 4.8 Malaysian contour stent was placed with the proximal in the renal pelvis distal bladder. Similar procedure was then performed on the left side. Again patient had multiple small stones which were grasped. Pyelogram was also performed. 4.8 Malaysian contour stent was then placed with the proximal end coiled in the left renal pelvis and the distal in the bladder. Bladder was drained. 2% viscous lidocaine was inserted into the urethra patient is taken recovery stable condition. This completes dictation please send a copy to my office. Drains Yes Packing No Pathology Yes Complications No immediate complications Condition Stable Disposition PACU
[2023-03-27 13:18] LABS: Glucose Point of Care 154 mg/dl (65-105)
[2023-03-27] MEDS: ONDANSETRON INJ 4 MG/2 ML VIAL IV PUSH (14:39)
[2023-03-27] MEDS: diphenhydrAMINE HCl INJ 50 MG/ML VIAL 25 MG IV PUSH (15:59)
[2023-03-27] MEDS: FAMOTIDINE 20 MG/2 ML VIAL IV PUSH (15:59)
[2023-03-27 17:06] LABS: Glucose Point of Care 184 mg/dl (65-105)
== END 2023-03-27 16:35 | disposition home or self-care (01) ==
PROVIDERS: PCP Internal Medicine; Visit Provider Urology
PROC: (CPT 52352; principal; 2023-03-27 12:00)
DX: N13.2 Hydronephrosis with renal and ureteral calculous obstruction (principal); I13.0 Hypertensive heart and chronic kidney disease with heart failure and stage 1 through stage 4 chronic kidney disease, or unspecified chronic kidney disease; I50.9 Heart failure, unspecified; E11.22 Type 2 diabetes mellitus with diabetic chronic kidney disease; N18.4 Chronic kidney disease, stage 4 (severe); D63.1 Anemia in chronic kidney disease; I48.91 Unspecified atrial fibrillation; E78.5 Hyperlipidemia, unspecified; H40.9 Unspecified glaucoma; Z79.01 Long term (current) use of anticoagulants; Z79.84 Long term (current) use of oral hypoglycemic drugs
CPT/HCPCS: 52332; 52352; 74420; 82365; 82948; 88300; C1758; C1769; C1894; C2617; J0690; J1200; J2405; J3010; J7120; Q9966